=== PATIENT | female | born 1990 | race Caucasian/White ===

== ENCOUNTER 2020-10-12 09:41 | Outpatient (CLI) | payer OTHER, SELFPAY ==
[2020-10-12 11:41] LABS: Free T4 Free Thyroxine 0.81 ng/mL (0.78-2.19)
[2020-10-16 07:46] LABS: Prolactin 11.3 ng/mL (***)
== END 2020-10-12 09:42 | disposition home or self-care (01) ==
PROVIDERS: PCP Internal Medicine; Visit Provider Obstetrics & Gynecology
DX: N92.6 Irregular menstruation, unspecified (principal)
CPT/HCPCS: 36415; 84146; 84439; 84443

== ENCOUNTER 2021-03-13 14:05 | Observation (INO) | payer OTHER, SELFPAY ==
--- NOTE | 2021-03-13 14:05 | OBADM ---
This patient, Amy Soliz, admitted to the OB room OB Post 113 for observation. Patient/family oriented to hospital policies and general routines including ID bracelet, bed and alarms, visiting hours, pain management, procedures, bathroom and other care routines, personal items, smoking policy, room service/diet, and visiting hours. Patient/Family are encouraged to report perceived risks to care and to ask questions if they do not understand what they are told or what they should do.
[2021-03-13 14:25] VITALS: BMI 28.8
[2021-03-13 14:44] VITALS: BP 110/64; PULSE 78
[2021-03-13] MEDS: DEXTROSE 5%/LACTATED RINGERS 1,000 ML 999 ML IV CONT (14:54)
[2021-03-13] MEDS: PROMETHAZINE HCL 25 MG/ML AMPUL 12.5 MG IV PUSH (14:54)
[2021-03-13 15:14] LABS: Basophils Absolute Auto 0.1 K/mm3 (0.0-0.1); Basophils Percent Auto 0.4 % (0.2-1.2); Eosinophils Absolute Auto 0.2 K/mm3 (0-0.3); Eosinophils Percent Auto 1.4 % (0-4.4); Hematocrit 37.1 % (37.0-47.0); Immature Granulocyte Absolute 0.04 K/mm3 (0.00-0.031); Immature Granulocyte Percent A 0.3 % (0-0.5); Lymphocytes Percent Auto 22.8 % (18.3-44.2); Mean Corpuscular Hemoglobin 29.1 pg (26-34); Mean Corpuscular Volume 83.2 fl (80-100); Mean Platelet Volume 10.3 fl (7.4-10.4); Monocytes Absolute Auto 0.7 K/mm3 (0.1-0.6); Monocytes Percent Auto 5.8 % (2.6-8.5); Neutrophils Absolute Auto 8.2 K/mm3 (1.3-6.7); Neutrophils Percent Auto 69.3 % (45.5-73.1); Platelet Count Result 368 k/mm3 (150-375); Red Blood Count 4.46 M/mm3 (4.2-5.4); Red Cell Distribution Width 13.2 % (11.5-14.5); White Blood Count 11.9 K/mm3 (4.5-10.0)
[2021-03-13 15:17] LABS: Add Urine Microscopic? NO; Appearance Urine Clear (Clear); Bilirubin Urine Negative (Negative); Blood Urine Negative (Negative); Color Urine Yellow (Yellow); Glucose Urine UA Negative (Negative); Ketones Urine Negative (Negative); Leukocyte Esterase Ur Negative LEU/UL (NEGATIVE); Nitrate Urine Negative (Negative); Protein Urine Negative (Negative); Specific Grav Ur 1.017 (1.001-1.035); Urobilinogen Urine Negative mg/dL (<2.0)
[2021-03-13 15:38] LABS: Alanine Aminotransferase 14 U/L (4-35); Albumin Level 4.6 g/dL (3.5-5.1); Alkaline Phosphatase 51 U/L (38-126); Anion Gap 12 mmol/L (8-16); Aspartate Amino Transferase 22 U/L (14-36); Bilirubin,Total 0.5 mg/dL (0.2-1.3); Blood Urea Nitrogen 9 mg/dL (7-17); Calcium 9.6 mg/dL (8.4-10.2); Carbon Dioxide 22 mmol/L (22-30); Chloride 103 mmol/L (98-107); Estimated Glomerular Filt Rate > 60; Glucose 84 mg/dL (65-110); Potassium 3.7 mmol/L (3.4-5.0); Sodium 137 mmol/L (137-145)
[2021-03-13 16:08] LABS: Thyroid Stimulating Hormone 0.458 uIU/mL (0.465-4.680)
[2021-03-13 16:15] VITALS: TEMP 36.6
[2021-03-13 16:47] LABS: Free T4 Free Thyroxine 1.16 ng/mL (0.78-2.19)
--- NOTE | 2021-03-13 17:03 | PC.NURSE ---
1656- left message for Dr. Ayala. 1702- called Dr. Rivera. Informed of lab results and pt status. Pt states that she is feeling better and was able to eat crackers without nausea. Pt states that she feels well enough to go home. Phenergan prescription has been called to pharmacy. October D/C home.
--- NOTE | 2021-04-04 10:00 | P.PNOB_ITS ---
OB - Triage/Final Diagnosis Visit Information Comments/Additional reasons for admission: I have assessed the risk for this patient, Amy Soliz, and determined that she would benefit from observation care. Evaluation Laboratory results: Laboratory Tests 03/13/21 03/13/21 03/13/21 14:35 14:35 14:35 WBC 11.9 H RBC 4.46 Hgb 13.0 Hct 37.1 MCV 83.2 MCH 29.1 MCHC 35.0 RDW 13.2 Plt Count 368 MPV 10.3 Immature Gran % (Auto) 0.3 Neut % (Auto) 69.3 Lymph % (Auto) 22.8 [place] % (Auto) 5.8 Eos % (Auto) 1.4 Baso % (Auto) 0.4 Lymph # (Auto) 2.70 [place] # (Auto) 0.7 H Eos # (Auto) 0.2 Baso # (Auto) 0.1 Abs Immat Gran (auto) 0.04 H Absolute Neuts (auto) 8.2 H Absolute Nucleated RBC 0.0 Nucleated RBC % 0.0 Sodium 137 Potassium 3.7 Chloride 103 Carbon Dioxide 22 Anion Gap 12 BUN 9 Creatinine 0.40 L Estim Creat Clear Calc Not Reportable Estimated GFR > 60 Glucose 84 Calcium 9.6 Total Bilirubin 0.5 AST 22 ALT 14 Alkaline Phosphatase 51 Total Protein 7.0 Albumin 4.6 TSH Free T4 Urine Color Yellow Urine Appearance Clear Urine pH 6.0 Ur Specific [place] 1.017 Urine Protein Negative Urine Glucose (UA) Negative Urine Ketones Negative Ur Blood (Man) Negative Urine Nitrate Negative Urine Bilirubin Negative Urine Urobilinogen Negative Ur Leukocyte Esterase Negative 03/13/21 03/13/21 14:35 14:35 WBC RBC Hgb Hct MCV MCH MCHC RDW Plt Count MPV Immature Gran % (Auto) Neut % (Auto) Lymph % (Auto) [place] % (Auto) Eos % (Auto) Baso % (Auto) Lymph # (Auto) [place] # (Auto) Eos # (Auto) Baso # (Auto) Abs Immat Gran (auto) Absolute Neuts (auto) Absolute Nucleated RBC Nucleated RBC % Sodium Potassium Chloride Carbon Dioxide Anion Gap BUN Creatinine Estim Creat Clear Calc Estimated GFR Glucose Calcium Total Bilirubin AST ALT Alkaline Phosphatase Total Protein Albumin TSH 0.458 L Free T4 1.16 Urine Color Urine Appearance Urine pH Ur Specific [place] Urine Protein Urine Glucose (UA) Urine Ketones Ur Blood (Man) Urine Nitrate Urine Bilirubin Urine Urobilinogen Ur Leukocyte Esterase Final Diagnosis (1) Nausea and vomiting during : Code(s): O21.9 - Vomiting of , unspecified Status: Acute
== END 2021-03-13 17:18 | disposition home or self-care (01) ==
PROVIDERS: Admitting Provider Obstetrics & Gynecology; PCP Internal Medicine; Visit Provider Student in an Organized Health Care Education/Training Program
DX: O21.0 Mild hyperemesis gravidarum (principal); Z3A.12 12 weeks gestation of pregnancy
CPT/HCPCS: 36415; 80053; 81003; 84439; 84443; 85025; 87086; 96361; 96374; G0378; G0379; J2550; J7121

== ENCOUNTER 2021-07-16 15:24 | Outpatient (CLI) | payer OTHER, SELFPAY ==
--- NOTE | ~2021-07-16 | US_ITS ---
US soft tissue chest 07/16/2021 16:03 Indication: Palpable painful right breast lump lower inner right breast Procedure: High-resolution ultrasound of the area of palpable concern in the right breast Comparison: No prior studies for comparison. Findings: At 9:00, 4 cm from the nipple there is a hypoechoic mass measuring 5 x 5 x 5 mm with slight ly antiparallel configuration, no posterior acoustic enhancement and no internal vascularity. The mar gins are circumscribed. Impression: 1: Probable benign right breast mass measuring 5 mm at 4:00, 9 cm from the nipple. Short-term follow- up is recommended. BI-RADS CATEGORY 3-PROBABLY BENIGN FINDING RECOMMENDATION: 3 month follow-up right breast ultrasound with possible additional mammogram recommen ded if the mass is persistent. Reviewed, dictated and finalized at location A. HOST Impression: 1: Probable benign right breast mass measuring 5 mm at 4:00, 9 cm from the nipp le. Short-term follow-up is recommended. BI-RADS CATEGORY 3-PROBABLY BENIGN FINDING RECOMMENDATION: 3 month follow-up right breast ultrasound with possible additio nal mammogram recommended if the mass is persistent.
== END 2021-07-16 15:25 | disposition home or self-care (01) ==
LOC: ANHIMG 15:35
PROVIDERS: PCP Internal Medicine; Visit Provider Obstetrics & Gynecology
DX: R92.8 Other abnormal and inconclusive findings on diagnostic imaging of breast (principal)
CPT/HCPCS: 76604

== ENCOUNTER 2021-08-28 15:41 | Outpatient (RCR) | payer OTHER, SELFPAY ==
[2021-08-28 16:31] VITALS: BP 127/74; PULSE 102
== END 2021-09-22 13:07 | disposition home or self-care (01) ==
LOC: ANHOBOP 15:41
PROVIDERS: PCP Internal Medicine; Visit Provider Obstetrics & Gynecology
DX: O36.8130 Decreased fetal movements, third trimester, not applicable or unspecified (principal); Z3A.36 36 weeks gestation of pregnancy
CPT/HCPCS: 59025

== ENCOUNTER 2021-09-17 04:56 | Inpatient (IN) | payer OTHER, SELFPAY ==
--- NOTE | 2021-09-16 22:09 | PM.IMHP ---
H&P: HPI History of Present Illness Date/Time: 09/16/21 22:09 She is admitted for repeat ceserean section. She is a at 39 weeks by LMP 12/18/20 with an EDC 09/24/2021 consistent with a 10 week ultrasound. She has had 2 prior ceserean sections. PNC significant for nausea and vomiting of . Labs reviewed. GBS neg. She has plans for to get a vasectomy. Chief Complaint: Elective repeat ceserean. Review of Systems Review of Systems: All systems reviewed & are unremarkable except as noted in HPI and below Constitutional: Constitutional: Reports no additional constitutional complaints and Denies headache(s) Eyes: Eyes: Denies spots in vision ENT: Reports system reviewed and no additional complaints, except as documented and Denies headache(s) Cardiovascular: Cardiovascular: Denies chest pain and Denies dyspnea Respiratory: Respiratory: Denies dyspnea Gastrointestinal: Gastrointestinal: Reports no additional gastrointestinal complaints Genitourinary: Genitourinary: Reports amenorrhea Musculoskeletal: Musculoskeletal: Reports no additional musculoskeletal complaints Integumentary/Breasts: Skin/Breast: Denies breast mass and Denies rash Neurologic: Denies headache(s) Psychiatric: Psychiatric: Reports no additional psychiatric complaints PMFSH Past Medical History Medical History ASCUS with positive high risk HPV Surgical History Surgical History History of tonsillectomy Previous section [place] teeth removed Family History Family History Grandparent Carcinoma of colon Family history of malignant neoplasm of breast Father Family history of type 2 diabetes mellitus Social History Social History Smoking status: Never smoker Second hand tobacco smoke exposure: No Alcohol intake: current Alcohol use details: Social Substance use: never Spiritual care concerns: No Meds Home Medications and Allergies Home Medications Medication Instructions Recorded Confirmed Type prenat.vits,erin,lje-rpun-irxyc 1 tablet PO DAILY 02/20/21 09/17/21 History Allergies Allergy/AdvReac Type Severity Reaction Status Date / Time Penicillins Allergy Unknown unknown Verified 09/13/21 14:52 Exam Const: General: no acute distress Eyes: General: appearance normal, both eyes and all related structures Resp: Effort & Inspection: normal respiratory effort Cardio: Rate: regular rate GI: Other: Gravid no fundal tenderness no right upper quadrant pain Skin: General skin exam: no rashes or lesions noted Neuro: Cognition (Neuro): normal cognition Extrem: General: normal to inspection Psych: Mental Status: mental status grossly normal Assessment and Plan Assessment and plan (1) Delivery by elective section: Code(s): O82 - Encounter for delivery without indication Status: Acute Assessment and Plan: Admit. Will proceed with repeat ceserean section.
[2021-09-17] VITALS (57 sets, daily range): BP systolic 97–141; BP diastolic 56–91; PULSE 60–98; RESP 12–19; TEMP 36.2–36.9; O2SAT 94–100; BMI 33.7
[2021-09-17 05:36] LABS: Basophils Absolute Auto 0.1 K/mm3 (0.0-0.1); Basophils Percent Auto 0.5 % (0.2-1.2); Eosinophils Absolute Auto 0.2 K/mm3 (0-0.3); Eosinophils Percent Auto 1.5 % (0-4.4); Hematocrit 33.1 % (37.0-47.0); Hemoglobin 10.6 g/dL (12.0-15.0); Immature Granulocyte Absolute 0.09 K/mm3 (0.00-0.031); Immature Granulocyte Percent A 0.8 % (0-0.5); Lymphocytes Absolute Auto 3.04 K/mm3 (0.9-3.2); Lymphocytes Percent Auto 26.8 % (18.3-44.2); Mean Corpuscular Hemoglobin 24.5 pg (26-34); Mean Corpuscular Volume 76.6 fl (80-100); Mean Platelet Volume 10.8 fl (7.4-10.4); Monocytes Absolute Auto 0.7 K/mm3 (0.1-0.6); Monocytes Percent Auto 6.2 % (2.6-8.5); Neutrophils Absolute Auto 7.3 K/mm3 (1.3-6.7); Neutrophils Percent Auto 64.2 % (45.5-73.1); Platelet Count Result 382 k/mm3 (150-375); Red Blood Count 4.32 M/mm3 (4.2-5.4); Red Cell Distribution Width 14.2 % (11.5-14.5); White Blood Count 11.4 K/mm3 (4.5-10.0)
--- NOTE | 2021-09-17 06:14 | LDADM ---
This patient, Amy Soliz, was admitted to Labor/Delivery/Recovery 120 on 09/17/21 at 04:56. Plans for labor, pain management and were discussed with patient. Patient/family oriented to hospital policies and general routines including ID bracelet, bed and alarms, visiting hours, pain management, procedures, bathroom and other care routines, personal items, smoking policy, room service/diet and guest tray routines, infant security routines, and visiting hours. Patient/Family are encouraged to report perceived risks to care and to ask questions if they do not understand what they are told or what they should do. See OBIX for further documentation.
[2021-09-17] MEDS: LACTATED RINGERS 1,000 ML 125 ML IV CONT (06:19)
--- NOTE | 2021-09-17 06:52 | WPDANESEPPF ---
Anes - Initial Pre Proc Eval Procedure: Operation Date: 09/17/21 07:30 Proposed Procedures p Repeat Section - Santos Ayala MD Date/Time: 09/17/21 06:52 Surgeon: Santos Ayala MD Pre Op Diagnosis: repeat Patient Data Age: 31 Gender: F Height: 1.63 m Weight: 89 kg Last Vital Signs Pulse 97 09/17/21 05:13 BP 141/91 H 09/17/21 05:13 Allergies Allergy/AdvReac Type Severity Reaction Status Date / Time Penicillins Allergy Unknown unknown Verified 09/13/21 14:52 Home Medications Medication Instructions Recorded Confirmed Type prenat.vits,erin,xsg-sxww-jswju 1 tablet PO DAILY 02/20/21 09/17/21 History Laboratory Tests 09/17/21 09/17/21 09/17/21 05:29 05:29 05:29 WBC 11.4 K/mm3 H K/mm3 (4.5-10.0) RBC 4.32 M/mm3 M/mm3 (4.2-5.4) Hgb 10.6 g/dL L g/dL (12.0-15.0) Hct 33.1 % L % (37.0-47.0) MCV 76.6 fl L fl (80-100) MCH 24.5 pg L pg (26-34) MCHC 32.0 g/dl g/dl (32-36) RDW 14.2 % % (11.5-14.5) Plt Count 382 k/mm3 H k/mm3 (150-375) MPV 10.8 fl H fl (7.4-10.4) Immature Gran % (Auto) 0.8 % H % (0-0.5) Neut % (Auto) 64.2 % % (45.5-73.1) Lymph % (Auto) 26.8 % % (18.3-44.2) [place] % (Auto) 6.2 % % (2.6-8.5) Eos % (Auto) 1.5 % % (0-4.4) Baso % (Auto) 0.5 % % (0.2-1.2) Lymph # (Auto) 3.04 K/mm3 K/mm3 (0.9-3.2) [place] # (Auto) 0.7 K/mm3 H K/mm3 (0.1-0.6) Eos # (Auto) 0.2 K/mm3 K/mm3 (0-0.3) Baso # (Auto) 0.1 K/mm3 K/mm3 (0.0-0.1) Abs Immat Gran (auto) 0.09 K/mm3 H K/mm3 (0.00-0.031) Absolute Neuts (auto) 7.3 K/mm3 H K/mm3 (1.3-6.7) Absolute Nucleated RBC 0.0 K/mm3 K/mm3 (0.0-0.012) Nucleated RBC % 0.0 % % (0.0-0.2) RPR Pending Blood Type A Positive Antibody Screen Negative Patient hx anesthesia problems: none Family hx anesthesia problems: none Results Review: All pre-operative results and documents have been reviewed as part of the pre-operative evaluation. [facility] Past Medical History Medical History ASCUS with positive high risk HPV Surgical History Surgical History History of tonsillectomy Previous section [place] teeth removed Family History Family History Grandparent Carcinoma of colon Family history of malignant neoplasm of breast Father Family history of type 2 diabetes mellitus Social History Social History Smoking status: Never smoker Second hand tobacco smoke exposure: No Alcohol intake: current Alcohol use details: Social Substance use: never Spiritual care concerns: No Anes - Eval Final PreProcedure Day of Procedure 09/17/21 06:52 Patient weight: obese Heart: regular rate and rhythm Lungs: clear to auscultation Airway: Mallampati scale class 1 Neurological: alert and oriented Last oral intake: >/= 8 hours ASA classification: II Emergent: no Anesthetic plan: proceed Anesthesia type and monitoring: regional spinal and standard monitoring Results Review: All pre-operative results and documents have been reviewed as part of the pre-operative evaluation. Informed Consent: The patient's anesthetic plan and its attendant risks and benefits were discussed with the patient/family/POA. Questions were solicited and answers provided to the satisfaction of the patient/family/POA.
--- NOTE | 2021-09-17 07:03 | WPDHPUPDATE1 ---
History and Physical Update Update Date/Time: 09/17/21 07:03 History and Physical has been reviewed, including an updated exam of the patient. There are NO changes in the patient's condition. Risks, benefits, and alternatives have been discussed and questions answered. Patient agrees to proceed with procedure.
[2021-09-17] MEDS: KETOROLAC 30 MG/ML VIAL (*BKC) 15 MG IV PUSH (08:06)
--- NOTE | 2021-09-17 09:00 | W.PM.PROC2 ---
Procedure Note - Detailed Date of Procedure 09/17/21 Pre-op Diagnosis repeat Post-op Diagnosis Same Procedure Performed Repeat low transverse ceserean section. Surgeon Santos Ayala MD Telephone Advice Nurse Helder Gunter Anesthesia Spinal Indications Patient with history of 2 prior ceserean sections. Desires elective repeat ceserean section. Findings Female , 7 lbs, apgars, 9,9. Normal ovaries bilateral. Uterus normal appearing. Description of Procedure After informed consent, risks and benefits of the procedure was discussed with the patient. The patient was taken to the operating room where she was placed in the dorsal lithotomy position with leftward tilt. Spinal anesthesia was administered and she was then prepped and draped in the usual sterile fashion. A Pfannenstiel skin incision was made along her prior scar with a scalpel and carried through to the underlying layer of fascia. The fascia and scar tissue was incised in the midline, extending bilaterally with rodriguez scissors. The fascia and scar tissue was dissected off the rectus muscles bluntly and sharply, superiorly and inferiorly. The rectus muscles were in the midline, and peritoneum was identified and entered bluntly. The pelvic organs were visualized. The bladder blade was then inserted. The vesicouterine peritoneum was identified and entered sharply with Metzenbaum scissors and extended bilaterally and then the bladder flap was created digitally. The low transverse uterine incision was then made with the scalpel and extended with bilateral index fingers in a crescent-shaped fashion. The head was delivered and the rest of the infant was delivered. The nose and mouth were suctioned. The cord was clamped twice and cut. The infant was then handed off to the awaiting pediatric staff. The placenta was then delivered manually. The uterine cavity was sponge curretted. The uterus was then exteriorized. The uterine incision was then closed with 0 vicryl in a running locked fashion. A second layer of 0 vicryl was used in an imbricating fashion. Hemostasis was noted. The posterior cul de sac was irrigated. The uterus was then returned to the abdomen. Bilateral gutters were irrigated. The uterine incision was noted to be hemostatic. Interceed placed on uterine incision and vertically on front of uterus. The muscle bellies were inspected and noted to be hemostatic. The subfascial layer was noted to be hemostatic, and the fascia was closed with 0 Vicryl in a running fashion. The subcutaneous layer was then closed with 3-0 Vicryl in a subcutaneous fashion. The skin was closed in a subcuticular fashion with 4.0 Vicryl on a Keif needle. Dermabond was applied at incision. All instruments, needle, and lap counts were correct x3. The patient was taken to the recovery room in stable condition. Estimated Blood Loss -345.0 Urine Output -200.0 Drains No Packing No Pathology None sent Complications No immediate complications Condition Stable Disposition Floor
[2021-09-17] MEDS: fentaNYL CITRATE INJ (*CRX) 100 MCG/2 ML VIAL 25 MCG IV PUSH (10:00)
[2021-09-17] MEDS: OXYTOCIN 30 UNITS/NS 500 ML 30 UNITS/500 ML BAG 125 UNITS IV CONT (10:22)
--- NOTE | 2021-09-17 11:10 | OBPPTRN ---
Patient transferred to post room #290 via stretcher. Support person present. Oriented to unit, room, information board, rooming in, admission packet and security measures. Patient verbalizes understanding.
[2021-09-17] MEDS: IBUPROFEN 600 MG TABLET PO ×2 (11:37→20:38)
[2021-09-17] MEDS: DEXTROSE 5%/0.45% SOD CHL 1,000 ML 125 ML IV CONT (13:44)
[2021-09-17] MEDS: DOCUSATE SODIUM 100 MG CAPSULE PO (19:35)
[2021-09-17] MEDS: KCL 20 MEQ/D5/0.45% SOD CHL 1,000 ML 125 ML IV CONT (23:03)
[2021-09-18] VITALS: BP 99/59; PULSE 65; RESP 16; TEMP 36.8; O2SAT 98
[2021-09-18] MEDS: IBUPROFEN 600 MG TABLET PO ×3 (02:39→15:24)
[2021-09-18 04:55] VITALS: BP 99/57; PULSE 72; RESP 16; TEMP 36.9; O2SAT 98
[2021-09-18] MEDS: HYDROcodone/acetaminophen (*CRX) 10-325 MG TABLET 1 TAB PO ×3 (05:34→15:24)
[2021-09-18 05:40] LABS: Basophils Absolute Auto 0.1 K/mm3 (0.0-0.1); Basophils Percent Auto 0.3 % (0.2-1.2); Eosinophils Absolute Auto 0.1 K/mm3 (0-0.3); Eosinophils Percent Auto 0.4 % (0-4.4); Hematocrit 27.9 % (37.0-47.0); Hemoglobin 9.1 g/dL (12.0-15.0); Immature Granulocyte Absolute 0.12 K/mm3 (0.00-0.031); Immature Granulocyte Percent A 0.8 % (0-0.5); Lymphocytes Absolute Auto 3.24 K/mm3 (0.9-3.2); Lymphocytes Percent Auto 22.6 % (18.3-44.2); Mean Corpuscular HGB Conc 32.6 g/dl (32-36); Mean Corpuscular Hemoglobin 24.5 pg (26-34); Mean Corpuscular Volume 75.2 fl (80-100); Mean Platelet Volume 11.2 fl (7.4-10.4); Monocytes Absolute Auto 1.1 K/mm3 (0.1-0.6); Monocytes Percent Auto 7.8 % (2.6-8.5); Neutrophils Absolute Auto 9.7 K/mm3 (1.3-6.7); Neutrophils Percent Auto 68.1 % (45.5-73.1); Platelet Count Result 371 k/mm3 (150-375); Red Blood Count 3.71 M/mm3 (4.2-5.4); Red Cell Distribution Width 14.1 % (11.5-14.5); White Blood Count 14.3 K/mm3 (4.5-10.0)
[2021-09-18 08:10] VITALS: BP 115/56; PULSE 68; RESP 18; TEMP 36.6; O2SAT 99
[2021-09-18] MEDS: POLYSACCHARIDE IRON COMPLEX 150 MG CAPSULE PO ×2 (08:30→15:23)
[2021-09-18] MEDS: MULTIVIT/MIN/PREN/FOL AC/IRON TABLET 1 TAB PO (08:30)
[2021-09-18] MEDS: HYDROcodone/acetaminophen (*CRX) 5-325 MG TABLET 1 TAB PO (08:30)
[2021-09-18] MEDS: DOCUSATE SODIUM 100 MG CAPSULE PO ×2 (08:30→15:24)
--- NOTE | 2021-09-18 09:31 | WPDANLDPN2 ---
Anes-Prog Note L&D Date/Time: 09/18/21 09:31 Comfortable throughout: section Neuraxial method: spinal Epidural/Spinal procedure site: clean & non-tender Neuro status: Neuro function grossly intact. Cardiovascular status: normal Respiratory status: normal Airway patency: baseline Mental status: baseline Post-Op hydration status: normal Vital Signs: Last Vital Signs Temp 36.9 C 09/18/21 04:55 Pulse 72 09/18/21 04:55 Resp 16 09/18/21 04:55 BP 99/57 L 09/18/21 04:55 Pulse Ox 98 09/18/21 04:55 Pain score (VAS): 5/10 I/O: Intake & Output 09/17/21 09/18/21 09/18/21 23:59 07:59 15:59 Intake Total 1900 300 Output Total 1050 1475 Balance 850 -1175 Post-procedural complaints: none Patient feedback: Patient satisfied with anesthetic care.
--- NOTE | 2021-09-18 09:32 | WPDANLDNPN2 ---
Anes-Prog Note L&D-Neuraxial Date/Time: 09/18/21 09:32 Neuraxial medications: intrathecal PF morphine Opiod-related complaints: none Patient feedback: Patient satisfied with post-operative pain management.
[2021-09-18 11:52] LABS: Rapid Plasma Reagin Non-Reactive (NonReactive)
[2021-09-18] MEDS: ACETAMINOPHEN 325 MG TABLET 650 MG PO (19:29)
[2021-09-18 19:30] VITALS: BP 111/72; PULSE 70; RESP 16; TEMP 36.6
--- NOTE | 2021-09-18 20:39 | PM.OBPNVD ---
OB - PN: Subj Subjective Date/time seen: 09/18/21 20:39 She states feeling well. No leg pain. No chest pain. Mild lochia. Baby doing well. She has sat up in chair. She has adequate pain control. Positive flatus. OB - PN: Obj Data Labs CBC & Chem 7: 09/18/21 05:01 Labs: Laboratory Results - last 24 hr 09/17/21 09/18/21 05:29 05:01 WBC 14.3 H RBC 3.71 L Hgb 9.1 L Hct 27.9 L MCV 75.2 L MCH 24.5 L MCHC 32.6 RDW 14.1 Plt Count 371 MPV 11.2 H Immature Gran % (Auto) 0.8 H Neut % (Auto) 68.1 Lymph % (Auto) 22.6 [place] % (Auto) 7.8 Eos % (Auto) 0.4 Baso % (Auto) 0.3 Lymph # (Auto) 3.24 H [place] # (Auto) 1.1 H Eos # (Auto) 0.1 Baso # (Auto) 0.1 Abs Immat Gran (auto) 0.12 H Absolute Neuts (auto) 9.7 H Absolute Nucleated RBC 0.0 Nucleated RBC % 0.0 RPR Non-reactive OB - PN A/P Assessment and Plan (1) Delivery by elective section: Code(s): O82 - Encounter for delivery without indication Status: Acute Assessment and Plan: POD1 s/p rpeat . She is doing well. Routine post care. Time Spent With Patient Time: Total time spent is greater than 50% in coordination of care (as documented) at patient's floor/unit and/or counseling patient: Exam Const: General: comfortable and no acute distress Resp: Effort & Inspection: normal respiratory effort GI: Other: incision clean dry intact Extrem: Other: nontender Psych: Mental Status: mental status grossly normal Affect: normal affect
[2021-09-19] MEDS: IBUPROFEN 600 MG TABLET PO ×4 (01:10→21:25)
[2021-09-19] MEDS: ACETAMINOPHEN 325 MG TABLET 650 MG PO ×3 (04:11→16:40)
[2021-09-19 07:45] VITALS: BP 115/69; PULSE 78; RESP 20; TEMP 36.3; O2SAT 99
[2021-09-19] MEDS: DOCUSATE SODIUM 100 MG CAPSULE PO ×2 (07:45→16:39)
[2021-09-19] MEDS: POLYSACCHARIDE IRON COMPLEX 150 MG CAPSULE PO ×2 (07:45→16:39)
--- NOTE | 2021-09-19 08:50 | PC.NURSE ---
On 09/19/21, the student, Sanjuanita Sarkar, provided care and completed [facility] documentation on this patient. I have reviewed the student's documentation and agree with the findings.
[2021-09-19 18:40] VITALS: BP 107/66; PULSE 76; RESP 16; TEMP 36.6
--- NOTE | 2021-09-19 20:40 | PM.OBPNVD ---
OB - PN: Subj Subjective Date/time seen: 09/19/21 0830 She reports adequate pain control. No leg pain. Lochia decreasing. Adequate pain control. She has flatus and tolerating regular diet. OB - PN: Obj Data Labs CBC & Chem 7: 09/18/21 05:01 OB - PN A/P Assessment and Plan (1) Delivery by elective section: Code(s): O82 - Encounter for delivery without indication Status: Acute Assessment and Plan: POD 2 s/p repeat . Doing well. Routine post op care. Time Spent With Patient Time: Total time spent is greater than 50% in coordination of care (as documented) at patient's floor/unit and/or counseling patient: Exam Const: General: comfortable and no acute distress Resp: Effort & Inspection: normal respiratory effort GI: Other: incision clean dry intact Skin: General skin exam: normal color Extrem: General: normal to inspection and no calf tenderness (trace edema bilat) Psych: Mental Status: mental status grossly normal Affect: normal affect
[2021-09-20] MEDS: ACETAMINOPHEN 325 MG TABLET 650 MG PO ×2 (00:05→07:13)
[2021-09-20] MEDS: IBUPROFEN 600 MG TABLET PO ×2 (02:45→11:13)
[2021-09-20] MEDS: POLYSACCHARIDE IRON COMPLEX 150 MG CAPSULE PO (07:13)
[2021-09-20] MEDS: DOCUSATE SODIUM 100 MG CAPSULE PO (07:13)
[2021-09-20] MEDS: MULTIVIT/MIN/PREN/FOL AC/IRON TABLET 1 TAB PO (07:17)
[2021-09-20 08:40] VITALS: BP 125/66; PULSE 72; RESP 18; TEMP 36.3; O2SAT 100
[2021-09-21 11:18] VITALS: BP 131/82; PULSE 79; RESP 20; TEMP 36.9; O2SAT 100
--- NOTE | 2021-10-04 00:29 | PM.OBDSVD ---
DS: Admitting Diagnosis Discharge Date 09/20/21 Admitting Diagnosis Elective repeat ceserean section. DS: Discharge Diagnosis Discharge Diagnosis (1) Delivery by elective section: Code(s): O82 - Encounter for delivery without indication Status: Acute OB - DS: Summary Hospital Course Hospital Course: Patient admitted on 09/17 2021 for planned elective repeat cesearean section. She had an uncompicated ceserean section. Postoperatively she did well. On post op day 1 she had adequate pain control with oral medication and was ambulating. On post op day 2 she had flatus. She was tolerating regular diet. On Post op day 3 she was doing well. She was discharged home. OB Procedures : Ultrasound OB Procedures Intrapartum: OB Procedures: : None Peripartum Data Infant Delivery Method: Section Procedures: Procedures Operation Date: 09/17/21 07:30 Actual Procedure Side Surgeon p Section Bilateral Santos Ayala MD Time Spent with Patient Time attestation: Total time spent providing and/or coordinating discharge services: Exam Const: General: cooperative Orientation/consciousness: oriented to person, oriented to place and oriented to time HENMT: General nose exam: Normal external nose present Eyes: General: appearance normal, both eyes and all related structures Resp: Effort & Inspection: normal respiratory effort GI: Inspection: normal to inspection Other: incision clean dry intact Skin: General skin exam: normal color Neuro: General: oriented to person, oriented to place and oriented to time Extrem: General: normal to inspection and no calf tenderness Psych: Appearance: grossly normal Mental Status: mental status grossly normal Discharge Plan Discharge Attending physician on discharge: Santos Ayala Consulting providers: Josh Valdez Discharging Clinician: Santos Ayala Anticipated Discharge Date/Time: 09/20/21 11:05 Patient Disposition: Home, Self-Care Activity: may shower, no straining, may drive after 2 weeks and pelvic rest Diet: regular Discharge Instructions: Education: Mom and Baby Guide Given to: Mother Follow-Up: Call your delivering provider's office for an appointment to be seen in: 6 Weeks [facility]. Appointment Date/Time: September 21, 2021 at 11:00 am What to expect at your follow-up visit: Physical Assessment Call [phone] if you are unable to keep your appointment time. BREAST CARE: * Wear a snug supportive bra. * For engorgement discomfort: Bottle Feeding: * May apply ice packs ABDOMINAL INCISION: (if applicable) * Allow incision to air dry * Do NOT use lotions for powders on your incision * When showering, allow soap and water to run over the incision, but do not wash incision EPISIOTOMY/PERINEAL CARE: * Until bleeding stops, use your alexander bottle after urinating * Change your pad frequently throughout the day * No tub baths until seen by your physician - You may shower ACTIVITY: * Rest as much as possible. * Do not exercise or lift anything heavier than your baby (such as laundry or other children.) * Avoid stairs or driving as much as possible. * Do not put anything into the vagina. No douching, tampons, or sexual activity until seen by physician. NOTIFY PHYSICIAN IF YOU HAVE ANY QUESTIONS OR IF ANY OF THE FOLLOWING SYMPTOMS OCCUR: * If your incision becomes red, swollen, or more painful than what you have experienced in the hospital. * If your vaginal bleeding becomes foul smelling. * If your vaginal bleeding becomes more heavy than a period or if your bleeding changes from pink to bright red. However, you may pass an occasional walnut-sized clot once or twice for the first week . * If you experience a sharp, shooting pain in you calves. *
== END 2021-09-20 14:50 | disposition home or self-care (01) | DRG 788 ==
LOC: ANHLDR 05:05 → ANHOB2 11:16
PROVIDERS: Admitting Provider Obstetrics & Gynecology; PCP Internal Medicine; Visit Provider Obstetrics & Gynecology
PROC: 10D00Z1 Extraction of Products of Conception, Low, Open Approach (ICD-10-PCS; CPT 59514; principal; 2021-09-17 07:30)
DX: O34.211 Maternal care for low transverse scar from previous cesarean delivery (principal); Z37.0 Single live birth; Z3A.39 39 weeks gestation of pregnancy
CPT/HCPCS: 36415; 85025; 86592; 86850; 86900; 86901; A9270; J0131; J1100; J1885; J2274; J2370; J2405; J2590; J3010; J3480; J7120

== ENCOUNTER 2021-12-05 15:53 | Outpatient (CLI) | payer OTHER, SELFPAY ==
[2021-12-05 16:17] LABS: Hematocrit 38.1 % (37.0-47.0); Hemoglobin 12.6 g/dL (12.0-15.0); Mean Corpuscular HGB Conc 33.1 g/dl (32-36); Mean Corpuscular Hemoglobin 25.8 pg (26-34); Mean Corpuscular Volume 78.1 fl (80-100); Platelet Count Result 442 k/mm3 (150-375); Red Blood Count 4.88 M/mm3 (4.2-5.4); Red Cell Distribution Width 20.5 % (11.5-14.5); White Blood Count 7.4 K/mm3 (4.5-10.0)
== END 2021-12-05 15:54 | disposition home or self-care (01) ==
PROVIDERS: PCP Internal Medicine; Visit Provider Obstetrics & Gynecology
DX: D64.9 Anemia, unspecified (principal)
CPT/HCPCS: 36415; 85027

== ENCOUNTER 2021-12-24 12:16 | Outpatient (CLI) | payer OTHER, SELFPAY ==
--- NOTE | ~2021-12-24 | US_ITS ---
EXAMINATION: US breast RT complete HISTORY: Six-month follow-up for probably benign right breast mass TECHNIQUE: Limited right breast ultrasound was performed. COMPARISON: 07/16/2021 FINDINGS: There is a 2 mm round, hypoechoic mass at the 4:00 location 8 cm from the nipple in the rig ht breast which has decreased in size since the comparison examination and demonstrates a thin connec tion to the skin surface, most consistent with a sebaceous cyst. IMPRESSION: Findings consistent with right breast sebaceous cyst. BI-RADS Category 2: Benign finding(s). Reviewed, dictated and finalized at location A.
== END 2021-12-24 12:17 | disposition home or self-care (01) ==
PROVIDERS: PCP Internal Medicine; Visit Provider Obstetrics & Gynecology
DX: N63.0 Unspecified lump in unspecified breast (principal)
CPT/HCPCS: 76641

== ENCOUNTER 2022-06-18 14:35 | Outpatient (CLI) | payer OTHER, SELFPAY ==
[2022-06-18 20:52] LABS: T4 Thyroxine 7.28 ug/dL (5.53-11.0)
== END 2022-06-18 14:36 | disposition home or self-care (01) ==
LOC: ANHLAB 14:36
PROVIDERS: PCP Internal Medicine; Visit Provider Obstetrics & Gynecology
DX: E04.9 Nontoxic goiter, unspecified (principal)
CPT/HCPCS: 36415; 84436; 84443

== ENCOUNTER 2023-09-05 00:12 | Day surgery (SDC) | payer OTHER, SELFPAY ==
[2023-08-29 09:24] VITALS: BMI 29.2
--- NOTE | 2023-08-29 09:27 | PC.NURSE ---
Report to the Outpatient Waiting Room, entrance under the green pavilion located off [facility], at time 0800 on date 09/05/23. Planned Procedure Time: 1000. Time changes happen often and if your time is changed the preop area will call you the afternoon before. - You and your visitor will be asked to self-screen and do not enter if you have any COVID symptoms. - A mask is optional within the hospital at this time. Patients may have clear liquids (water, carbonated beverages, clear teas, apple juice) until 3 hours prior to surgery with a maximum of 20 ounces. - No food from midnight until time of surgery Take the following medications with a SIP of water the morning of surgery: NONE DO NOT STOP ANY OF YOUR OTHER PRESCRIPTION MEDICATIONS PRIOR TO SURGERY ?EXCEPT THE FOLLOWING Medications to discontinue per physician: N/A Date to take last dose: N/A Please no make-up, nail thai, hairspray, perfume, deodorant, or body powder the day of surgery. No jewelry (including any body piercings) or valuables the day of surgery, leave them at home. Please take a shower or bath the night before, or the morning of, surgery with an antibacterial soap. Wear comfortable, loose fitting clothing. - Jewelry must be removed prior to entering the operating room. Rings and piercings that are not removed may be cut off. - The hospital will not accept responsibility for valuables. - Please leave all valuables, including medications, at home the day of surgery. If you are going home after surgery, a licensed show horse driver must drive you home. - NO public transportation without another adult if you receive anesthesia. - We recommend that an adult stay with you for 24 hours following discharge. - We also recommend that you do not drive, make important decision, drink alcoholic beverages, or take any drugs that were not prescribed by your health care provider for at least 24 hours after your discharge time. Follow any additional instructions given to you from your surgeon. If you or anyone in your household have experienced Covid symptoms in the past week, please notify your surgeon or the nurse liaison at the phone number below for possible testing. Telephone instructions given to PT - MAGALI and asked if any additional questions and then verbalized understanding. Patient advised to call surgeon office or pre surgery nurse liaison [phone] if any additional questions.
[2023-09-05] VITALS (7 sets, daily range): BP systolic 114–129; BP diastolic 63–82; PULSE 55–77; RESP 16; TEMP 36.2; O2SAT 100
--- NOTE | 2023-09-05 07:24 | PM.IMHP ---
H&P: HPI History of Present Illness Date/Time: 09/05/23 07:24 Chief Complaint: Heavy periods Narrative: Patient with history of menorrhagia. She declines hormonal options. She has been informed of options and request endometrial ablation. She has had a normal endometrial biopsy. Review of Systems Review of Systems: All systems reviewed & are unremarkable except as noted in HPI and below Cardiovascular: Cardiovascular: Reports no additional cardiovascular complaints, Denies chest pain and Denies dyspnea Respiratory: Respiratory: Reports no additional respiratory complaints and Denies dyspnea Gastrointestinal: Gastrointestinal: Reports abdominal pain, Denies change in bowel habits, Denies diarrhea, Denies nausea and Denies vomiting Genitourinary: Genitourinary: Reports pelvic pain Musculoskeletal: Musculoskeletal: Reports back pain Integumentary/Breasts: Skin/Breast: Reports system reviewed and no additional complaints, except as docu Neurologic: Reports system reviewed and no additional complaints, except as documented PMFSH Past Medical History Medical History ASCUS with positive high risk HPV Surgical History Surgical History History of tonsillectomy Previous section [place] teeth removed Family History Family History Grandparent Carcinoma of colon Family history of malignant neoplasm of breast Father Family history of type 2 diabetes mellitus Social History Social History Smoking status: Never smoker Second hand tobacco smoke exposure: No Alcohol intake: current Drinks per week: 4 Alcohol use details: Social Substance use: never Substance use type: does not use Do You Feel Safe in your Home?: Yes Lack of Transportation: No Lack of Food: Never True Current Housing: I Have Housing Concerned About Future Housing: No Difficulty Paying Gas/Electric Bills: No Difficulty Paying for Meds: No Currently Unemployed: No Education: Master's Degree or Higher Difficulty w/ Childcare or Family Care: No Living arrangements: with family Spiritual care concerns: No Meds Home Medications and Allergies Home Medications Medication Instructions Recorded Confirmed Type tranexamic acid 650 mg tablet 1,300 mg PO TID PRN heavy periods 06/25/23 08/29/23 Rx #30 tabs Allergies Allergy/AdvReac Type Severity Reaction Status Date / Time Penicillins Allergy Unknown unknown Verified 08/29/23 09:24 Exam Const: Orientation/consciousness: oriented to person and oriented to place HENMT: Head: normal to inspection Eyes: General: appearance normal, both eyes and all related structures Resp: Effort & Inspection: normal respiratory effort Auscultation: clear to auscultation bilaterally Cardio: Rate: regular rate Rhythm: regular rhythm GI: Inspection: normal to inspection GI Palp: No Rebound tenderness present Neuro: General: oriented to person and oriented to place Cognition (Neuro): normal cognition Extrem: General: normal to inspection Psych: Appearance: grossly normal and well kempt Assessment and Plan Assessment and plan (1) Menorrhagia: Code(s): N92.0 - Excessive and frequent menstruation with regular cycle Status: Acute Assessment and Plan: Will proceed with endometrial ablation with hysteroscopy, possible D and C, possible removal of lesion if present.
--- NOTE | 2023-09-05 09:25 | WPDANESEPPF ---
Anes - Initial Pre Proc Eval Procedure: Operation Date: 09/05/23 10:00 Proposed Procedures p Hysteroscopy Dilation and Curettage with Monica Endometrial Ablation - Santos Ayala MD Date/Time: 09/05/23 09:25 Surgeon: Santos Ayala MD Pre Op Diagnosis: menorrhagia Patient Data Age: 33 Gender: F Height: 1.63 m Weight: 79.4 kg Last Vital Signs Temp 36.2 C L 09/05/23 08:19 Pulse 68 09/05/23 08:19 Resp 16 09/05/23 08:19 BP 129/75 09/05/23 08:19 Pulse Ox 100 09/05/23 08:19 O2 Del Method Room Air 09/05/23 08:19 Allergies Allergy/AdvReac Type Severity Reaction Status Date / Time Penicillins Allergy Unknown unknown Verified 09/05/23 08:51 Home Medications Medication Instructions Recorded Confirmed Type tranexamic acid 650 mg tablet 1,300 mg PO TID PRN heavy periods 06/25/23 09/05/23 Rx #30 tabs Patient hx anesthesia problems: none Family hx anesthesia problems: none Results Review: All pre-operative results and documents have been reviewed as part of the pre-operative evaluation. [facility] Past Medical History Medical History ASCUS with positive high risk HPV Surgical History Surgical History History of tonsillectomy Previous section Robert teeth removed Family History Family History Grandparent Carcinoma of colon Family history of malignant neoplasm of breast Father Family history of type 2 diabetes mellitus Social History Social History Smoking status: Never smoker Second hand tobacco smoke exposure: No Alcohol intake: current Drinks per week: 4 Alcohol use details: Social Substance use: never Substance use type: does not use Do You Feel Safe in your Home?: Yes Lack of Transportation: No Lack of Food: Never True Current Housing: I Have Housing Concerned About Future Housing: No Difficulty Paying Gas/Electric Bills: No Difficulty Paying for Meds: No Currently Unemployed: No Education: Master's Degree or Higher Difficulty w/ Childcare or Family Care: No Living arrangements: with family Spiritual care concerns: No Anes - Eval Final PreProcedure Day of Procedure 09/05/23 09:25 Patient weight: overweight Heart: regular rate and rhythm Lungs: clear to auscultation Airway: Mallampati scale class 1 Neurological: alert and oriented Last oral intake: >/= 8 hours ASA classification: II Emergent: no Anesthetic plan: proceed Anesthesia type and monitoring: general GIVS and standard monitoring Results Review: All pre-operative results and documents have been reviewed as part of the pre-operative evaluation. Informed Consent: The patient's anesthetic plan and its attendant risks and benefits were discussed with the patient/family/POA. Questions were solicited and answers provided to the satisfaction of the patient/family/POA.
[2023-09-05] MEDS: LACTATED RINGERS 1,000 ML 30 ML IV CONT ×2 (10:30→12:10)
[2023-09-05] MEDS: ceFAZolin 2 GM/D5W 50 ML 2 GM/50 ML BAG IVPB (10:42)
[2023-09-05] MEDS: LIDOCAINE HCL 1% LOCAL INJ 10 ML VIAL INFILTRATE (10:47)
--- NOTE | 2023-09-05 11:13 | WPDHPUPDATE1 ---
History and Physical Update Update Date/Time: 09/05/23 1040 History and Physical has been reviewed, including an updated exam of the patient. There are NO changes in the patient's condition. Risks, benefits, and alternatives have been discussed and questions answered. Patient agrees to proceed with procedure.
--- NOTE | 2023-09-05 11:13 | W.PM.PROC2 ---
Procedure Note - Detailed Date of Procedure 09/05/23 Pre-op Diagnosis menorrhagia Post-op Diagnosis Same Procedure Performed Monica endometrial ablation with hysteroscopy. Surgeon Santos Ayala MD Anesthesia MAC and Local Indications Menorrhagia Findings Uterus sound to 9 cm, cervical length 4 cm, normal uterine cavity Description of Procedure After informed consent was obtained patient was taken to the operating room and adequate IV sedation was administered. Attention was turned to the vagina. Speculum was inserted. Single-tooth tenaculum placed on the anterior lip of the cervix. The uterus was sounded to 9 cm. The cervix was dilated to an 8Pratt dilator. The cervical length was 4cm . The hysteroscope was inserted into the cavity. The findings were a normal uterine cavity. The hysteroscope was removed. The Monica ablation instrument was inserted into the cavity. Cavity assessment was performed and confirmed intact. The ablation was enabled. After 120 seconds the Monica stopped. The ablation instrument was removed. The hysteroscope was inserted and there was noted to be good eschar with the cavity. The hysteroscope was removed the single-tooth tenaculum was removed hemostasis was noted at the tenaculum site. Sponge count correct. The patient taken to recovery in stable condition. Estimated Blood Loss 5 Drains No Packing No Pathology None sent Complications No immediate complications Condition Stable Disposition Same day [facility] Billing Surgery - Charge Forward: Surgery Billing
[2023-09-05] MEDS: oxyCODONE HCL (*CRX) 5 MG TAB IR PO (11:29)
[2023-09-05] MEDS: fentaNYL CITRATE INJ (*CRX) 100 MCG/2 ML VIAL 25 MCG IV PUSH ×5 (12:02→13:03)
[2023-09-05] MEDS: ONDANSETRON INJ 4 MG/2 ML VIAL IV PUSH (12:07)
[2023-09-05] MEDS: KETOROLAC 15 MG/ML VIAL (*BKC) 30 MG IV PUSH (12:45)
== END 2023-09-05 13:25 | disposition home or self-care (01) ==
PROVIDERS: PCP Internal Medicine; Visit Provider Obstetrics & Gynecology
PROC: 0U5B8ZZ Destruction of Endometrium, Via Natural or Artificial Opening Endoscopic (ICD-10-PCS; CPT 58563; principal; 2023-09-05 10:00)
DX: N92.0 Excessive and frequent menstruation with regular cycle (principal); R87.810 Cervical high risk human papillomavirus (HPV) DNA test positive
CPT/HCPCS: 58563; A9270; J0690; J1885; J2250; J2405; J3010; J7030; J7120

== ENCOUNTER 2024-09-09 14:39 | Outpatient (CLI) | payer OTHER, SELFPAY ==
--- OUTSIDE RECORDS SUMMARY | 2024-09-09 15:31 | XMS_ITS ---
Care Plan - [facility] Created on: September 09, 2024 MAGALI APONTE : 1990 Sex: Female Author Organization [facility] Address [address] [place] [address] Phone Care Team Providers Care Family Service Caseworker Name Role Phone SIDRA KIM DO Unavailable [phone]
--- OUTSIDE RECORDS SUMMARY | 2024-09-09 15:31 | XMS_ITS | Clinical Summary ---
Author Organization [facility] Address [address] [place] [address] Phone Care Team Providers Care Sausage Maker Name Role Phone SIDRA KIM DO Unavailable [phone] Reason for Visit and Chief Complaint The Chief Complaint is: Pt here today for c/o sore throat since yesterday Problems Includes: Problems addressed during this encounter and other active Problems No Active Problems Plan of Treatment - Go to the emergency room if condition worsens - Last Documented On 07/20/2022 12:27PM ; [facility] - Disposition Patient or inspector fabric was instructed in use of antipyretics. Also, the patient is to return if there is persistnece of fever for more than 48 hours, pain or other new significant symptoms - Last Documented On 07/20/2022 12:27PM ; [facility] Instructions to patient Go to the emergency room if condition worsens Last Documented On 12:19PM ; [facility] Assessments Includes: Assessments from this encounter Findings - [J02.9 - Acute pharyngitis, unspecified] Pharyngitis - Last Documented On 07/20/2022 12:27PM ; [facility] Instructions Includes: Instructions from this encounter Instructions to patient Go to the emergency room if condition worsens Last Documented On 12:19PM ; [facility] Medical Equipment - Implanted Devices Includes: Current Devices No Medical Equipment Recorded Medications Includes: Medications discussed during this encounter and other current Medications New / Renewed during this visit LANETTE DEJESUS NP on 07/20/2022 Azithromycin 250 MG Oral Tablet Provider: LANETTE S ANJELICA SET UP TECHNICIAN 5 day supply: 6 each, 0 refills Diagnosis: Acute pharyngitis, unspecified Take as directed (2 tabs day one, then once daily) Pharmacy: [address], [id number] - Last Documented On 07/20/2022 12:35PM By LANETTE DEJESUS SET UP TECHNICIAN ; [facility] Current Medications (continue as prescribed) Zithromax Z-Cristopher 250 MG Oral Tablet 09/12/2022 Provider: TOMY VELEZ Diagnosis: Acute pharyngiti s, unspecified as directed Last Documented On 3 5:47PM By TOMY VELEZ ; [facility] Past Medications on file Dicyclomine HCl 20 MG Oral Tablet 11/11/2020 - 11/15/2020 Provider: KWAN GARCIA Diagnosis: Diarrhea, unspec ified QID PRN for diarrhea/abdominal cramping Last Documented On 11/11/2020 2:12PM By Kwan LINARES ; [facility] Medications Administered Includes: Administered Medications from this encounter No Administered Medications Recorded Vital Signs Includes: Vital Signs from this encounter Vital Name 07/20/2022 11:53A Pulse Rate-Sitting (bpm) 80 Temp-Oral (F) 98.9 Weight (lb) 177 Oxygen Saturation (%) 100 Last Documented: On 07/20/2022 11:53A M ; [facility] Results Includes: Results discussed during this encounter No Results Recorded For Specified Dates History of Present Illness Includes: History of Present Illness from this encounter PATRICIO APONTE is a 31 year old female. - Allergy list reviewed. - No systemic symptoms. Pt reports 2 day hx of sore throat and body aches, no measured fever, no NVD. 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 Social History Description Last Updated Tobacco non-user 07/20/2022 Last Documented On 3 12:27PM ; [facility] Smoking Status Unknown Procedures and Surgical History Includes: Procedures from this encounter Procedures Code Diagnosis Performing Provider Service L ocation Service Date Discussed with pt /family the etiology, natural course, possible complications, and treatment options for pharyngitis. Recommended OTC therapy with pain/fever control products, topical products (lozenges/sprays/beto les) as needed per franchise business consultant's recommendation. Recommended for pt/ family to call/return to office with follow up if pt persits with greater than 5 days of symptoms, worsens, or as otherwise directed. Discussed with pt / family that is pt contagious until fever free for at least 24 hours. Return to activities when pt feels well and fever free for 24 hours. Observe pt contacts for signs/symptoms of illness Last Documented On 3 12:26PM ; [facility] plan of care reviewed and agreed to Last Documented On 3 12:19PM ; [facility] plan of care reviewed and agreed to by t he patient Last Documented On 3 12:19PM ; [facility] patient to call if symptoms worsen or not improved to update patient's status as needed Last Documented On 3 12:19PM ; [facility] use of tobacco assessment performed 1000F Last Documented On 3 11:53AM ; [facility] Increase fluids Last Documented On 3 12:19PM ; [facility] Clinical summary provided to patient Last Documented On 3 12:19PM ; [facility] Medical History Includes: Medical History addressed during this encounter Description Last Updated Not taking OTC medications 11/11/2020 Last Documented On 3 11:52AM ; [facility] No Contact with and (Suspected) exposure to COVID-19 11/11/2020 Last Documented On 3 11:52AM ; [facility] No fall 11/11/2020 Last Documented On 3 11:52AM ; [facility] No exposure to a contagious disease 05/16 Last Documented On 3 11:52AM ; [facility] No exposure to a viral disease 0 Last Documented On 3 11:52AM ; [facility] Family History Includes: Family History addressed during this encounter No Family History Recorded Review of Systems Includes: Review of Systems from this encounter Systemic: Not feeling poorly (malaise). No fever, no chills, no night sweats, and no recent weight change. Head: No headache, no facial pain, and no sinus pain. Otolaryngeal: No hearing loss, no earache, no tinnitus, no nasal discharge, and no hoarseness. Sore throat. Pulmonary: No dyspnea, no cough, and no wheezing. Gastrointestinal: No nausea and without vomiting. Mental Status Includes: Mental Status from this encounter No Mental Status Recorded Functional Status Includes: Functional Status from this encounter No Functional Status Recorded Physical Exam Includes: Physical Exam from this encounter Allergies Includes: Active Allergies Substance Type Reaction Onset Date Resolved Date Statu s Penicillin V Potassium Allergy 01/31/2016 Active Last Documented On 3 5:21PM ; [facility] Encounters Encounter Provider Location Date Check-In Time Check-Out Time Diagnosis COVID SICK VISIT- ESTABLISHED PATIENT LANETTE S ANJELICA FRIAS [facility] 07/20/19 23 11:48AM 12:27PM Pharyngitis Insurance Includes: Active Insurance Policies Plan Name Member ID Group # Subscriber Relationship Effect thang Dates - [facility] [id number] Clinical Notes Includes: Clinical Notes from this encounter * Progress note Date Encounter Last Documented by 07/20/2022 COVID SICK VISIT- ESTABLISHED PA EVANGELINANT Last documented on 07/20/2022; 12:27 PM, LANETTE DEJESUS NP; [facility] Active Problems & Conditions - No Active Problems Chief Complaint The Chief Complaint is: Pt here today for c/o sore throat since yesterday. History of Present Illness MAGALI APONTE is a 31 year old female. - Allergy list reviewed. - No systemic symptoms. Pt reports 2 day hx of sore throat and body aches, no measured fever, no NVD. 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 Past Medical/Surgical History Reported: Medications: Not taking OTC medications. Exposure: No exposure to a contagious disease, not to a viral disease, and not Contact with and (Suspected) exposure to COVID-19. Physical Trauma: No fall. Social History Tobacco use: Tobacco non-user. Allergies - Penicillin V Potassium Review Of Systems Systemic: Not feeling poorly (malaise). No fever, no chills, no night sweats, and no recent weight change. Head: No headache, no facial pain, and no sinus pain. Otolaryngeal: No hearing loss, no earache, no tinnitus, no nasal discharge, and no hoarseness. Sore throat. Pulmonary: No dyspnea, no cough, and no wheezing. Gastrointestinal: No nausea and without vomiting. Physical Findings - Vitals taken 07/20/2022 11:53 am Pulse Rate-Sitting 80 bpm Temp-Oral 98.9 F Weight 177 lbs Oxygen Saturation 100 % General Appearance: - Well-appearing. - In no acute distress. Eyes: General/bilateral: Pupils: - PERRLA. Ears: Right Ear: External Auditory Canal: - Normal. - No external auditory canal discharge. Tympanic Membrane: - Serous exudate behind tympanic membrane. - Normal. - No bulging tympanic membrane. - No retraction of tympanic membrane. - Not erythematous. - No perforation. - No decreased mobility of tympanic membrane. - No pus behind tympanic membrane. Left Ear: External Auditory Canal: - Normal. - No external auditory canal discharge. Tympanic Membrane: - Serous exudate behind tympanic membrane. - Normal. - No bulging tympanic membrane. - No retracted tympanic membrane. - Not erythematous. - No perforation. - No decreased mobility of tympanic membrane. - No pus behind tympanic membrane. Nose: General/bilateral: Discharge: - No nasal discharge. Cavity: - Nasal mucosa not red. - Nasal turbinate not hypertrophied. Sinus Tenderness: - No sinus tenderness. Pharynx: Oropharynx: - Inflamed. - Soft palate was normal tonsils surgically absent. Mucosal: - Pharynx showed no accumulation of mucous. Lymph Nodes: - Adenopathy. Lungs: - Clear to auscultation. Cardiovascular: Heart Rate And Rhythm: - Normal. Heart Sounds: - Normal. Assessment - [J02.9 - Acute pharyngitis, unspecified] Pharyngitis Therapy - Increase fluids. - Clinical summary provided to patient. - Patient to call if symptoms worsen or not improved to update patient's status as needed. - Plan of care reviewed and agreed to by the patient. Discussed with pt /family the etiology, natural course, possible complications, and treatment options for pharyngitis. Recommended OTC therapy with pain/fever control products, topical products (lozenges/sprays/gargles) as needed per franchise business consultant's recommendation. Recommended for pt/ family to call/return to office with follow up if pt persits with greater than 5 days of symptoms, worsens, or as otherwise directed. Discussed with pt / family that is pt contagious until fever free for at least 24 hours. Return to activities when pt feels well and fever free for 24 hours. Observe pt contacts for signs/symptoms of illness. Pt unable to tolerate oral strep testing due to extreme gag reflex. She request antibiotic tx. Plan StartCited - Acute pharyngitis, unspecified Azithromycin 250 MG each Take as directed (2 tabs day one, then once daily), 5 days, 0 refills EndCited - Go to the emergency room if condition worsens - Disposition Patient or inspector fabric was instructed in use of antipyretics. Also, the patient is to return if there is persistnece of fever for more than 48 hours, pain or other new significant symptoms Practice Management Use of tobacco assessment performed. Health Reminders - Assess Tobacco Use satisfied 07/20/2022.
--- OUTSIDE RECORDS SUMMARY | 2024-09-09 15:31 | XMS_ITS | Clinical Summary ---
Author Organization [facility] Address [address] [address] Phone Care Team Providers Care Early Childhood Specialist Name Role Phone SIDRA KIM DO Unavailable [phone] Reason for Visit and Chief Complaint The Chief Complaint is: cough, SOB, fatigue, headache, symptoms x2 days Problems Includes: Problems addressed during this encounter and other active Problems No Active Problems Plan of Treatment - The options include close observation - Last Documented On 05/26/2020 5:50PM ; [facility] - Continue current medication - Last Documented On 05/26/2020 5:50PM ; [facility] Rapid COVID testing performed today and was negative. Patient advised that they may return to work/school when fever free for 24 hours and symptoms have improved. Call with development of additional or worsening symptoms. Go to ED with severe respiratory symptoms. - Last Documented On 05/26/2020 5:50PM ; [facility] Assessments Includes: Assessments from this encounter Findings - Upper respiratory infection [Acute upper respiratory infection, unspecified] - Last Documented On 05/26/2020 5:50PM ; [facility] Medical Equipment - Implanted Devices Includes: Current Devices No Medical Equipment Recorded Medications Includes: Medications discussed during this encounter and other current Medications Current Medications (continue as prescribed) Zithromax Z-Cristopher 250 MG Oral Tablet 09/12/2022 Provider: TOMY VELEZ Diagnosis: Acute pharyngiti s, unspecified as directed Last Documented On 5:47PM By TOMY VELEZ ; [facility] Medications Administered Includes: Administered Medications from this encounter No Administered Medications Recorded Vital Signs Includes: Vital Signs from this encounter Vital Name 05/26/2020 05:14P Pulse Rate-Sitting (bpm) 84 Temp-Oral (F) 98.9 Oxygen Saturation (%) 99 Last Documented: On 05/26/2020 5:15PM ; [facility] Results Includes: Results discussed during this encounter Rapid COVID Test [facility] Ordered by KWAN GARCIA on 05/16 Collected: Reported: 05/26/2020 17:45 Last Documented On 0 5:46PM ; [facility] Reviewed on 05/26/2020; All test results are final unless otherwise noted. Rapid COVId neg N (Normal) Last Documented On 0 5:45PM ; [facility] Int. QC Acceptable yes N (Normal) Last Documented On 0 5:45PM ; [facility] Lot # and Exp. Date [id number] 09/05/20 N (Normal) Last Documented On 0 5:45PM ; [facility] History of Present Illness Includes: History of Present Illness from this encounter HPI AMY APONTE is a 29 year old female. - Allergy list reviewed - Medication reconciliation performed - Feeling poorly (malaise) - No fever - Headache - No sinus pain - No swollen glands in the neck - No ear symptoms - No earache - No nasal discharge - No postnasal drip - No nasal passage blockage (stuffiness) - No sneezing - No sore throat - No chest pain or discomfort - Cough - Not feeling congested in the chest - No shortness of breath - Not coughing up sputum - No wheezing - Normal appetite - No nausea - No vomiting - No abdominal pain - No diarrhea - No myalgias Amy is a 29-year-old female patient that presented to the respiratory clinic for cough, shortness of breath, fatigue and headache that has been present for two days. She denies any known exposure to COVID. She has been taking Tylenol for symptoms. Social History No Social History Recorded - Smoking Status Unknown Procedures and Surgical History Includes: Procedures from this encounter Procedures Code Diagnosis Performing Provider Service L ocation Service Date Pt to use OTC fever/pain product as needed per product instruction.~ Last Documented On 0 5:46PM ; [facility] Pt to use OTC expectorant product as nee ded per product instruction.~ Last Documented On 0 5:46PM ; [facility] Pt to use OTC cough product as needed pe r product instruction.~ Last Documented On 0 5:46PM ; [facility] plan of care reviewed and agreed to Last Documented On 0 5:46PM ; [facility] patient to call if symptoms worsen or not improved to update patient's status as needed Last Documented On 0 5:46PM ; [facility] Medical History Includes: Medical History addressed during this encounter Description Last Updated Taking OTC medications 05/26/2020 Last Documented On 0 5:50PM ; [facility] No exposure to a contagious disease 05/16 Last Documented On 0 5:50PM ; [facility] No exposure to a viral disease 0 Last Documented On 0 5:50PM ; [facility] Family History Includes: Family History addressed during this encounter No Family History Recorded Review of Systems Includes: Review of Systems from this encounter Systemic: No fever. Head: Headache. Otolaryngeal: No earache, no nasal discharge, and no sore throat. Cardiovascular: No chest pain or discomfort. Pulmonary: Cough. No wheezing. Gastrointestinal: No vomiting, no abdominal pain, and no diarrhea. Mental Status Includes: Mental Status from this encounter No Mental Status Recorded Functional Status Includes: Functional Status from this encounter No Functional Status Recorded Physical Exam Includes: Physical Exam from this encounter Allergies Includes: Active Allergies Substance Type Reaction Onset Date Resolved Date Statu s Penicillin V Potassium Allergy 01/31/2016 Active Last Documented On 3 5:21PM ; [facility] Encounters Encounter Provider Location Date Check-In Time Check-Out Time Diagnosis SICK VISIT KWAN GARCIA [facility] 05/26/20 20 4:50PM 5:36PM Upper Respiratory Infection Insurance Includes: Active Insurance Policies Plan Name Member ID Group # Subscriber Relationship Effect thang Dates - [id number] PAULA APONTE Clinical Notes Includes: Clinical Notes from this encounter No Clinical Notes Recorded
--- OUTSIDE RECORDS SUMMARY | 2024-09-09 15:31 | XMS_ITS | Clinical Summary ---
Author Organization [facility] Address [address] [place] [address] Phone Care Team Providers Care Supervisor Cd Area Name Role Phone SIDRA KIM DO Unavailable [phone] Reason for Visit and Chief Complaint The Chief Complaint is: Stomach pain, diarrhea, fatigue, sharp abdominal pain Problems Includes: Problems addressed during this encounter and other active Problems No Active Problems Plan of Treatment - The options include close observation - Last Documented On 11/11/2020 3:06PM ; [facility] - Continue current medication - Last Documented On 11/11/2020 3:06PM ; [facility] Rapid COVID testing performed today and was negative. Patient to continue to monitor symptoms closely as rapid testing may have false negative results. Patient advised that they may return to work/school when fever free for 24 hours and symptoms have improved. Call with development of additional or worsening symptoms. Go to ED with severe respiratory symptoms. - Last Documented On 11/11/2020 3:06PM ; [facility] Advised patient to monitor symptoms closely. Clear liquid today. Advance as tolerated. Go to ED with development of severe abdominal pain. - Last Documented On 11/11/2020 3:06PM ; [facility] Assessments Includes: Assessments from this encounter Findings - Contact with and (Suspected) exposure to COVID-19 [Contact with and (suspected) exposure to COVID-19] - Last Documented On 11/11/2020 3:06PM ; [facility] Medical Equipment - Implanted Devices Includes: Current Devices No Medical Equipment Recorded Medications Includes: Medications discussed during this encounter and other current Medications New / Renewed during this visit KWAN GARCIA on 11/11/2020 Dicyclomine HCl 20 MG Oral Tablet Provider: KWAN Curran 4 day supply: 12 tablet, 0 refills Diagnosis: Diarrhea, unspecified QID PRN for diarrhea/abdomin al cramping Pharmacy: [address], [id number] - Last Documented On 11/11/2020 2:12PM By Kwan LINARES ; [facility] Current Medications (continue as prescribed) Zithromax Z-Cristopher 250 MG Oral Tablet 09/12/2022 Provider: TOMY VELEZ Diagnosis: Acute pharyngiti s, unspecified as directed Last Documented On 5:47PM By TOMY VELEZ ; [facility] Past Medications on file Azithromycin 250 MG Oral Tablet 07/20/2022 - 07/25/2022 Provider: LANETTE DEJESUS NP Diagnosis: Acute pharyngiti s, unspecified Take as directed (2 tabs day one, then once daily) Last Documented On 07/20/2022 12:35PM By LANETTE DEJESUS NP ; [facility] Medications Administered Includes: Administered Medications from this encounter No Administered Medications Recorded Vital Signs Includes: Vital Signs from this encounter Vital Name 11/11/2020 01:38P Pulse Rate-Sitting (bpm) 114 Temp-Oral (F) 100.4 Oxygen Saturation (%) 98 Last Documented: On 11/11/2020 1:39PM ; [facility] Results Includes: Results discussed during this encounter Rapid COVID Test [facility] Ordered by KWAN GARCIA on 10/15 Collected: Reported: 11/11/2020 13:49 Last Documented On 1:50PM ; [facility] Reviewed on 11/11/2020; All test results are final unless otherwise noted. Rapid COVId NEG N (Normal) Last Documented On 1:49PM ; [facility] Int. QC Acceptable YES N (Normal) Last Documented On 1:49PM ; [facility] Lot # and Exp. Date [id number] 01/25/21 N (Normal) Last Documented On 1 1:49PM ; [facility] History of Present Illness Includes: History of Present Illness from this encounter HPI AMY APONTE is a 30 year old female. - Allergy list reviewed - Medication reconciliation performed - Feeling tired - Fever low (under 100 F by thermometer) - Not feeling poorly (malaise) - No chills - No headache - No sinus pain - No swollen glands in the neck - No ear symptoms - No earache - No nasal discharge - No postnasal drip - No nasal passage blockage (stuffiness) - No sneezing - No sore throat - No chest pain or discomfort - Not feeling congested in the chest - No shortness of breath - No cough - Not coughing up sputum - No wheezing - Appetite not normal - Abdominal pain associated with diarrhea - Diarrhea - No nausea - No vomiting - No myalgias - No anosmia - No taste disturbances - Not unpleasantly altered - No skin symptoms Amy is a 30-year-old female patient that presented to the walk-in clinic for abdominal cramping, diarrhea and fatigue that has been present for two days. She reports that she has had decreased appetite. No known exposure to COVID. Social History Description Last Updated Current nonsmoker 11/11/2020 Last Documented On 1 3:06PM ; [facility] Smoking Status Unknown Procedures and Surgical History Includes: Procedures from this encounter Procedures Code Diagnosis Performing Provider Service L ocation Service Date Pt to use OTC fever/pain product as needed per product instruction.~ Last Documented On 1 2:05PM ; [facility] plan of care reviewed and agreed to Last Documented On 1 2:05PM ; [facility] patient to call if symptoms worsen or not improved to update patient's status as needed Last Documented On 1 2:05PM ; [facility] review of medications documented 1160F Last Documented On 1 1:39PM ; [facility] Medical History Includes: Medical History addressed during this encounter Description Last Updated Not taking OTC medications 11/11/2020 Last Documented On 1 3:06PM ; [facility] No Contact with and (Suspected) exposure to COVID-19 11/11/2020 Last Documented On 1 3:06PM ; [facility] No fall 11/11/2020 Last Documented On 1 3:06PM ; [facility] No exposure to a contagious disease 05/16 Last Documented On 1 1:38PM ; [facility] No exposure to a viral disease 0 Last Documented On 1 1:38PM ; [facility] Family History Includes: Family History addressed during this encounter No Family History Recorded Review of Systems Includes: Review of Systems from this encounter Systemic: Feeling poorly (malaise) and fever low (under 100 F by thermometer). No chills. Head: No headache and no sinus pressure. Otolaryngeal: No earache, no nasal discharge, and no sore throat. Cardiovascular: No chest pain or discomfort. Pulmonary: No cough and no wheezing. Gastrointestinal: No vomiting. Abdominal pain. No abdominal pain. Diarrhea. No diarrhea. Musculoskeletal: Muscle aches. Skin: No skin lesions. Mental Status Includes: Mental Status from this encounter No Mental Status Recorded Functional Status Includes: Functional Status from this encounter No Functional Status Recorded Physical Exam Includes: Physical Exam from this encounter Allergies Includes: Active Allergies Substance Type Reaction Onset Date Resolved Date Statu s Penicillin V Potassium Allergy 01/31/2016 Active Last Documented On 3 5:21PM ; [facility] Encounters Encounter Provider Location Date Check-In Time Check-Out Time Diagnosis COVID SICK VISIT- ESTABLISHED PATIENT KWAN ARMASP-C [facility] 11/12/19 21 1:27PM 1:53PM Contact with and (Suspected) Exposure To Covid-19 Insurance Includes: Active Insurance Policies Plan Name Member ID Group # Subscriber Relationship Effect thang Dates - [id number] PAULA APONTE Clinical Notes Includes: Clinical Notes from this encounter No Clinical Notes Recorded
--- OUTSIDE RECORDS SUMMARY | 2024-09-09 15:31 | XMS_ITS | Clinical Summary ---
Author Organization [facility] Address [address] [place] [address] Phone Care Team Providers Care Customer Services Supervisor Name Role Phone SIDRA KIM DO Unavailable [phone] Reason for Visit and Chief Complaint The Chief Complaint is: pt has a little cough, and sore throat for 2 days Problems Includes: Problems addressed during this encounter and other active Problems No Active Problems Plan of Treatment - Return to the clinic if condition worsens or new symptoms arise - Last Documented On 09/12/2022 5:44PM ; [facility] - Patient will call for appointment as needed - Last Documented On 09/12/2022 5:44PM ; [facility] Instructions to patient Instructions for patient Last Documented On 3 5:40PM ; [facility] Assessments Includes: Assessments from this encounter Findings - Acute upper respiratory infection - Last Documented On 09/12/2022 5:44PM ; [facility] Instructions Includes: Instructions from this encounter Instructions to patient Instructions for patient Last Documented On 3 5:40PM ; [facility] Medical Equipment - Implanted Devices Includes: Current Devices No Medical Equipment Recorded Medications Includes: Medications discussed during this encounter and other current Medications New / Renewed during this visit TOMY VELEZ on 09/12/2022 Zithromax Z-Cristopher 250 MG Oral Tablet Provider: TOMY VELEZ 5 day supply: 6 tablet, 0 refills Diagnosis: Acute pharyngitis, unspecified as directed Pharmacy: [facility] [address], [id number] - Last Documented On 5:47PM By TOMY LINARES-ANNABELLA ; [facility] Past Medications on file Azithromycin 250 MG Oral Tablet 07/20/2022 - 07/25/2022 Provider: LANETTE DEJESUS NP Diagnosis: Acute pharyngiti s, unspecified Take as directed (2 tabs day one, then once daily) Last Documented On 07/20/2022 12:35PM By LANETTE DEJESUS NP ; [facility] Dicyclomine HCl 20 MG Oral Tablet 11/11/2020 - 11/15/2020 Provider: KWAN GARCIA Diagnosis: Diarrhea, unspec ified QID PRN for diarrhea/abdominal cramping Last Documented On 11/11/2020 2:12PM By Kwan LINARES ; [facility] Medications Administered Includes: Administered Medications from this encounter No Administered Medications Recorded Vital Signs Includes: Vital Signs from this encounter Vital Name 09/12/2022 05:21P Blood Pressure Sitting (mmHg) 120/82 Pulse Rate-Sitting (bpm) 76 Temp-Oral (F) 98.3 Height (in) 65 Weight (lb) 177.2 Body Mass Index 29.5 Body Surface Area 1.9 Oxygen Saturation (%) 98 Last Documented: On 09/12/2022 5:21PM ; [facility] Results Includes: Results discussed during this encounter No Results Recorded For Specified Dates History of Present Illness Includes: History of Present Illness from this encounter PATRICIO APONTE is a 32 year old female. - Allergy list reviewed - Medication list reviewed - Duration of symptoms - Previously well - No fever - No chills - No sinus pain - No sinus pressure - No swollen glands in the neck - No itching of the eyes - No discharge from the eyes - Nasal discharge - Sore throat - No earache - The ears do not feel pressured - The ears do not feel full - No discharge from the ears - No postnasal drip - No nasal passage blockage (stuffiness) - No sneezing - No itchy throat - No chest pain or discomfort - No palpitations - Cough - Not feeling congested in the chest - No dyspnea - No wheezing - No rash pt to clinic for above symptoms x 2 days daughter has strep Social History Description Last Updated Tobacco non-user 07/20/2022 Last Documented On 3 5:21PM ; [facility] Current nonsmoker 11/11/2020 Last Documented On 3 5:21PM ; [facility] Smoking Status Unknown Procedures and Surgical History Includes: Procedures from this encounter Procedures Code Diagnosis Performing Provider Service L ocation Service Date plan of care reviewed and agreed to by the patient Last Documented On 3 5:40PM ; [facility] Patient verbalizes understanding Last Documented On 3 5:40PM ; [facility] Increase fluids Last Documented On 3 5:40PM ; [facility] Clinical summary provided to patient Last Documented On 3 5:40PM ; [facility] Medical History Includes: Medical History addressed during this encounter No Medical History Recorded Family History Includes: Family History addressed during this encounter Description Last Updated Family history unchanged 09/12/2022 Last Documented On 3 5:44PM ; [facility] Review of Systems Includes: Review of Systems from this encounter Otolaryngeal: Nasal discharge and sore throat. Mental Status Includes: Mental Status from this encounter Description Oriented to time, place, and person Functional Status Includes: Functional Status from this encounter No Functional Status Recorded Physical Exam Includes: Physical Exam from this encounter Allergies Includes: Active Allergies Substance Type Reaction Onset Date Resolved Date Statu s Penicillin V Potassium Allergy 01/31/2016 Active Last Documented On 3 5:21PM ; [facility] Encounters Encounter Provider Location Date Check-In Time Check-Out Time Diagnosis COVID SICK VISIT- ESTABLISHED PATIENT TOMY VELEZ [facility] 09/13/19 23 5:09PM 5:40PM Upper Respiratory Infection Acute Insurance Includes: Active Insurance Policies Plan Name Member ID Group # Subscriber Relationship Effect thang Dates 1 - [id number] PAULA APONTE Clinical Notes Includes: Clinical Notes from this encounter * Progress note Date Encounter Last Documented by 09/12/2022 COVID SICK VISIT- ESTABLISHED PA ANMOL Last documented on 09/12/2022; 5:44 PM, TOMY VELEZ; [facility] Active Problems & Conditions - No Active Problems Chief Complaint The Chief Complaint is: Pt has a little cough, and sore throat for 2 days. History of Present Illness MAGALI APONTE is a 32 year old female. - Allergy list reviewed - Medication list reviewed - Duration of symptoms - Previously well - No fever - No chills - No sinus pain - No sinus pressure - No swollen glands in the neck - No itching of the eyes - No discharge from the eyes - Nasal discharge - Sore throat - No earache - The ears do not feel pressured - The ears do not feel full - No discharge from the ears - No postnasal drip - No nasal passage blockage (stuffiness) - No sneezing - No itchy throat - No chest pain or discomfort - No palpitations - Cough - Not feeling congested in the chest - No dyspnea - No wheezing - No rash pt to clinic for above symptoms x 2 days daughter has strep Current Medication - None Social History Tobacco use: Current nonsmoker. Allergies - Penicillin V Potassium Family History Family history unchanged Review Of Systems Otolaryngeal: Nasal discharge and sore throat. Physical Findings - Vitals taken 09/12/2022 05:21 pm BP-Sitting 120/82 mmHg Pulse Rate-Sitting 76 bpm Temp-Oral 98.3 F Height 65 in Weight 177 lbs 3.2 oz Body Mass Index 29.5 kg/m2 Body Surface Area 1.9 m2 Oxygen Saturation 98 % General Appearance: - Alert. - Well developed. - Well nourished. - In no acute distress. Neck: Suppleness: - Neck demonstrated no decrease in suppleness. Eyes: General/bilateral: Pupils: - PERRLA. Ears: General/bilateral: External Auditory Canal: - External auditory meatus normal. Tympanic Membrane: - Normal. Nose: General/bilateral: Discharge: - Nasal discharge. - Rhinorrhea. Cavity: - Nasal turbinate not swollen. Sinus Tenderness: - No sinus tenderness. Pharynx: Oropharynx: - Abnormal. - Inflamed. Mucosal: - Pharynx showed no accumulation of purulent mucous. Lymph Nodes: - Anterior cervical lymph nodes were not enlarged. - Posterior cervical lymph nodes were not enlarged. - Submental lymph nodes were not enlarged. - Preauricular lymph nodes were not enlarged. - Postauricular lymph nodes were not enlarged. - Suboccipital lymph nodes were not enlarged. Lungs: - Normal breath sounds/voice sounds. - No wheezing was heard. - No rhonchi were heard. - No rales/crackles were heard. Cardiovascular: Heart Rate And Rhythm: - Normal. Murmurs: - No murmurs were heard. Abdomen: Auscultation: - Bowel sounds were normal. Palpation: - Abdominal non-tender. - No mass was palpated in the abdomen. Neurological: - Oriented to time, place, and person. Gait And Stance: - Normal. Psychiatric: Mood: - Euthymic. Skin: - General appearance was normal. - Texture was normal. - Turgor was normal. - Color and pigmentation were normal. - Moisture was normal. - Temperature was normal. Assessment - Acute upper respiratory infection Therapy - Increase fluids. - Patient verbalizes understanding. - Clinical summary provided to patient. - Plan of care reviewed and agreed to by the patient. Counseling/Education - Instructions for patient Discussed Increase fluid intake Rest as much as possible Encourage use of humidifier- Regularly clean the humidifier so that bacteria does not grow Encouraged vitamin C and Zinc to help boost immune system Cool liquids to soothe the throat, throat sprays, throat lozenges, cool liquids to help soothe the throat Acetaminophen or ibuprofen as needed for pain/fever Antihistamine as needed- such as zyrtec, claratin, or benadryl Normal saline nasal spray or Netti Pot with sterile water as needed Steam Inhalation Warm compress to sinus area Plan StartCited - Acute pharyngitis, unspecified Zithromax Z-Cristopher 250 MG tablet as directed, 5 days, 0 refills EndCited - Return to the clinic if condition worsens or new symptoms arise - Patient will call for appointment as needed Health Reminders - Assess BMI satisfied 09/12/2022. - Assess Tobacco Use satisfied 09/12/2022.
--- OUTSIDE RECORDS SUMMARY | 2024-09-09 15:31 | XMS_ITS | Clinical Summary ---
Author Organization [facility] [address] - [address]22 Address [address] [facility] 3rd [place] [address] Phone Care Team Providers Care Distribution Center Supervisor Name Role Phone Unavailable Primary Care Provider Unavailabl e Social History Tobacco Use Types Packs/Day Years Used Date Smoking Tobacco: Never Assessed Comments Unknown Sex and Gender Information Value Date Recorded Sex Assigned at Not on file Legal Sex Female 7:52 AM CLINICAL OB Gender Identity Not on file Sexual Orientation Not on file Plan of Treatment Health Maintenance Due Date Last Done Comments HEPATITIS B VACCINES (1 of 3 - 19+ 3-dose series) 08/23/2007 PAP SMEAR 2009 CERVICAL CANCER SCREENING 2018 HPV/Cotest (30-65) 2018 PAP SMEAR 2018 INFLUENZA VACCINE (#1) 2024 0, 03/29/2019 COVID-19 Vaccine (2023- season) 2024 07/29/2020, 07/01/2020 DTAP/TDAP/TD VACCINES (3 - Td or Tdap) 12/07/2028 12/07/2018, 12/15/2015 HPV VACCINES Aged Out No longer eligi ble based on patient's age to complete this topic Insurance * Guarantor: Amy Aponte Account Type Relation to Patient Date of Phone Billing Address Personal/Family Self [address] [place] [address] IGNACIO SHERIDANEW Member Subscriber Plan / Payer (Ef fective 2016-Present) Name:Amy Aponte Relation to Subscriber:Spouse Name:JALIL APONTE Date of :1983 (Home) Address: [address] [place] [address] Payer ID:Not on file Type:HMO Address: [facility] [id number] [id number]
--- OUTSIDE RECORDS SUMMARY | 2024-09-09 15:31 | XMS_ITS | Referral Summary ---
Author Organization [facility] A Address [address] [place] [address] Care Team Providers Care Environmental Planning Engineer Name Role Phone William Smith MD Primary Care Provider Santos Ayala MD Unavailable [phone] Encounters Date Type Department Care Team Description 08/16/2024 3:00 PM STRAIGHT RULING MACHINE OPERATOR Office Visit [facility] Primary Care at [address] [place] [address] William Smith MD Moderate episode of recurrent major depressive disorder (HCC) (Primary Dx); Class 1 obesity due to excess calories without serious comorbidity with body mass index (BMI) of 31.0 to 31.9 in adult; Vitamin D deficiency; Anemia, unspecified type; Encounter for hepatitis C screening test for low risk patient; Need for hepatitis B screening test 07/26/2024 Orders Only [facility] Health Information Management [address] [place] [id number] Scanning, Provider from Last 3 Months Allergies Active Allergy Reactions Criticality Noted Date Comments Penicillins Rash Reaction: Rash, Medications buPROPion XL (WELLBUTRIN XL) 150 mg 24 hr tabletIndicatio ns:Moderate episode of recurrent major depressive disorder (HCC) Take 1 tablet (150 mg total) by mouth every morning 90 tablet 1 5 08/17/19 26 Active sertraline (ZOLOFT) 50 mg tabletIndicatio ns:Moderate episode of recurrent major depressive disorder (HCC) Take 1 tablet (50 mg total) by mouth daily 90 tablet 1 5 08/17/19 26 Active sertraline (ZOLOFT) 50 mg tabletIndicatio ns:Moderate episode of recurrent major depressive disorder (HCC) Take 1 tablet (50 mg total) by mouth daily 90 tablet 1 4 08/17/19 25 Discontinu ed(Reorder ) Active Problems Problem Noted Date Diagnosed Date Microcytic anemia 10/22/2023 Assessment & Plan (10/22/2023 3:40 AM CDT): - mild but noted on most recent labs testing - recheck CBC with iron studies, order placed Lab Results Component Value Date WBC 7.6 07/22/2023 HGB 11.6 (L) 07/22/2023 HCT 35.3 (L) 07/22/2023 MCV 81.0 (L) 07/22/2023 LABPLAT 394 07/22/2023 Preventative health care 10/21/2023 Assessment & Plan (10/22/2023 3:41 AM CDT): - New or chronic worsening conditions: depressed affect - Mental health: ongoing depression, see A/P section - Dental health: Recommend regular dental care and cleaning. Discussed importance of regular tooth brushing, flossing, and dental visits. - Nutrition: Recommend moderation in sodium/caffeine intake, saturated fat and cholesterol, caloric balance, sufficient intake of fresh fruits, vegetables - Exercise: leads an active lifestyle, Recommend to exercise at least 30 minutes moderate to vigorous exercise most days of the week. (minimum 150 minutes weekly) - Immunizations: Age and sex appropriate immunizations reviewed and offered - Cervical Cancer screening: Up to date, follows with OBGYN - Breast Cancer screening: not indicated - Colon cancer screening: not indicated - Lung cancer screening: not indicated - Bone desnity/osteoporosis screening:not indicated - control: vasectomy, and has had uterine ablation herself Moderate episode of recurrent major depressive d isorder 10/21/2023 Assessment & Plan (08/16/2024 3:36 PM STRAIGHT RULING MACHINE OPERATOR): - chronic conditon, well controlled but reports weight gain with medication - prior hx of depression x3 - was medicated after her 1st and 3rd child - no signifcant anxiety - has been on other medications, Paxil (did not help), Lexapro (felt not well), wellbutrin in past caused more agitation/irritability - currently on sertraline 50 mg daily with good results but has noticed weight gain similar to past experience - lets try Wellbutrin XL 150 mg daily to take along with Sertraline 50 mg daily and see if it can counteract the Weight gain associated with Sertraline and the mood changes she had in past may also be negated by the presence of sertraline Assessment & Plan (02/22/2024 11:53 PM CDT): - chronic conditon, improved, better controlled - prior hx of depression x3 - was medicated after her 1st and 3rd child - no signifcant anxiety - has been on other medications, Paxil (did not help), Lexapro (felt not well) - wellbutrin in past caused more agitation/irritability - started Zoloft on last visit at 50 mg with significant improvement - continue current management Assessment & Plan (12/15/2023 10:30 AM CDT): - chronic conditon, worse - prior hx of depression x3 - was medicated after her 1st and 3rd child - no signifcant anxiety - currently not on any medications - was on Zoloft after first and worked but caused weight gain - has been on other medications, Paxil (did not help), Lexapro (felt not well) - has noticed some depressed affect and interested in getting back on medication and does not want weight gain - started Wellbutrin on last visit but caused more agitation/irritability - willing to get back on Zoloft, restart medication - start Zoloft 50 mg daily and can taper up in 6 weeks if needed, to let me know Assessment & Plan (10/22/2023 3:45 AM CDT): - chronic conditon, worse - prior hx of depression x3 - was medicated after her 1st and 3rd child - no signifcant anxiety - currently not on any medications - was on Zoloft after first and worked but caused weight gain - has been on other medications, Lexapro felt nto well - has noticed some depressed affect and interested in getting back on medication and does not want weight gain - start Wellbutrin, script sent in with taper up instruction Vitamin D deficiency 07/27/2023 Assessment & Plan (10/21/2023 4:19 PM CDT): - recent diagnosis, not at/near goal - recent lab work shows significantly decreased vitamin-D level - patient denies any previous diagnosis of this - currently on vitamin D3 2000-international units daily - continue current management Lab Results Component Value Date [id number] 24 (L) 07/22/2023 Assessment & Plan (07/27/2023 9:58 AM STRAIGHT RULING MACHINE OPERATOR): -new diagnosis, not at/near goal -recent lab work shows significantly decreased vitamin-D level -patient denies any previous diagnosis of this -vitamin D3 prescription sent in [facility] 07/27/2023 Assessment & Plan (07/27/2023 10:11 AM STRAIGHT RULING MACHINE OPERATOR): -new complaint -onset x1 week -patient denies any particular trigger, but does state it seems to get worse throughout the day -meclizine prescribed Class 1 obesity due to exces s calories without serious comorbidity with body mass index (BMI) of 31.0 to 31.9 in adult 01/02/2023 Assessment & Plan (08/16/2024 3:38 PM STRAIGHT RULING MACHINE OPERATOR): Wt Readings from Last 3 Encounters: 08/16/24 86.6 kg (191 lb) 02/10/24 79 kg (174 lb 3.2 oz) 12/15/23 80 kg (176 lb 4.8 oz) Body mass index is 31.29 kg/m . - chronic, not at goal, worse, noted to have had weight gain, reports since she has been on sertraline for anxiety, see plan under anxiety -Discussed recommendations for exercise at least 30 minutes moderate to vigorous exercise most days of the week. (minimum 150 minutes weekly) -Discussed importance of well-balanced diet. Assessment & Plan (10/21/2023 4:23 PM CDT): Wt Readings from Last 3 Encounters: 10/21/23 80.2 kg (176 lb 11.2 oz) 07/23/23 81.6 kg (179 lb 14.4 oz) 01/02/23 78.8 kg (173 lb 12.8 oz) Body mass index is 28.95 kg/m . - chronic, improved but not at goal -Discussed recommendations for exercise at least 30 minutes moderate to vigorous exercise most days of the week. (minimum 150 minutes weekly) -Discussed importance of well-balanced diet. Assessment & Plan (07/27/2023 9:49 AM STRAIGHT RULING MACHINE OPERATOR): Wt Readings from Last 3 Encounters: 07/23/23 81.6 kg (179 lb 14.4 oz) 01/02/23 78.8 kg (173 lb 12.8 oz) 12/07/20 72.1 kg (159 lb) Body mass index is 29.47 kg/m . -Discussed recommendations for exercise at least 30 minutes moderate to vigorous exercise most days of the week. (minimum 150 minutes weekly) -Discussed importance of well-balanced diet. Assessment & Plan (01/02/2023 12:49 PM CDT): Weight stable Continue healthy diet and exercise regimen, encouraged to increase activity to 30 minutes per day, 150 minutes per week to help maintain healthy weight and lifestyle Recommend flu vaccine every March, tetanus prophylaxis every 10 years, yearly eye exams, regular dental visits, and to follow-up with OBGYN as scheduled Resolved Problems Problem Noted Date Diagnosed Date Resolved Date Physical exam, pre-employment 01/02/2023 10/21/2023 Assessment & Plan (01/02/2023 1:35 PM CDT): Follow up in 6 months for annual wellness exam with pcp Fasting labs ordered- obtain 2 weeks prior to annual exam Patient appears healthy, well groomed, no apparent physical disability, vital signs good assessment as documented Patient stated that the TB criteria was not recommended for her in paperwork that she received from her employer Encounter for other administ rative examinations 01/02/2023 10/21/2023 Assessment & Plan (01/02/2023 1:34 PM CDT): Patient is a [place] [employer] [place]Patient states 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 CBC, coagulation studies, metabolic panel. Call back for results. Without current diarrhea will not order stool studies for now. Abdominal cramping 12/07/2020 Assessment & Plan (12/07/2020 12:05 PM CDT): Colonoscopy to rule out underlying inflammatory bowel disease or malignancy. Healthcare maintenance 01/01/201910/20 Assessment & Plan (12/07/2020 12:06 PM CDT): Will see her back in 6 months with a physical and fasting lab sooner if needed. Assessment & Plan (01/01/2019 3:04 PM CDT): Flu shot each March. Tetanus booster every 10 years. PPD today per her physical form requirements. Return on Friday for interpretation. UA with trace protein and small leukocyte esterase and has no urinary symptoms. Follow-up with her devops engineer as they direct. There are no contraindications to her working. Will see her back in 1 year for physical and fasting lab sooner if needed. Immunizations Immunization Administration Dates Next Due Influenza, Quadrivalent, Spl it, Preservative Free, Intramuscular 04/09/2023,05/13/2022,04/12/2021,03/24,03/29/2019 Influenza, Trivalent, Preser vative Free, Intramuscular 04/14/2024 Influenza, Unspecified 01/09/2024(Deferr ed: Patient Refused),12/07/2020(Deferred: Patient Refused),04/03/2018 Moderna SARS-CoV-2 Monovalen t Vaccination (12+ YRS) 07/29/2020,07/01/2020 PPD TEST 01/01/2019 Tdap 07/12/2021,12/07/2018,12/15/2015 Social History Tobacco Use Types Packs/Day Years Used Date Smoking Tobacco: Never Smokeless Tobacco: Never Tobacco Cessation:Counseling Given: Yes Alcohol Use Standard Drinks/Week Comments Yes 0 (1 standard drink = 0.6 oz pur e alcohol) AUDIT-C Answer Date Recorded Q1: How often do you have a drink containing alc ohol? 2-4 times a month 08/16/2024 Q2: How many drinks containi ng alcohol do you have on a typical day when you are drinking? 1 or 2 08/16/2024 Q3: How often do you have si x or more drinks on one occasion? Never 08/16/2024 PHQ-2 Answer Date Recorded PHQ-2 Total Score (If total score is 3 or more points, staff should administer the PHQ-9) 0 08/16/2024 Comments No Sex and Gender Information Value Date Recorded Sex Assigned at Not on file Legal Sex Female 4:08 AM STRAIGHT RULING MACHINE OPERATOR Gender Identity Not on file Sexual Orientation Not on file Last Filed Vital Signs Vital Sign Reading Time Taken Comments Blood Pressure 110/80 08/16/2024 3:11 PM STRAIGHT RULING MACHINE OPERATOR Pulse 86 08/16/2024 3:11 PM STRAIGHT RULING MACHINE OPERATOR Temperature 36.7 C (98 F) 08/16/2024 3:11 PM STRAIGHT RULING MACHINE OPERATOR Respiratory Rate 16 08/16/2024 3:11 PM STRAIGHT RULING MACHINE OPERATOR Oxygen Saturation 98% 08/16/2024 3:11 PM STRAIGHT RULING MACHINE OPERATOR Inhaled Oxygen Concentration - - Weight 86.6 kg (191 lb) 08/16/2024 3:11 PM STRAIGHT RULING MACHINE OPERATOR Height 166.4 cm (5' 5.51 ) 08/16/2024 3:11 PM CS T Body Mass Index 31.29 08/16/2024 3:11 PM STRAIGHT RULING MACHINE OPERATOR Plan of Treatment Not on file Procedures Procedure Name Priority Date/Time Associated Diagnosis Comments SCAN - LABS 07/26/2024 from Last 3 Months Results * SCAN - LABS (07/26/2024) us Provider Scanning Final Result from Last 3 Months Insurance CIGNA IBEW CIGNA Member Subscriber Plan / Payer (Ef fective 2019-Present) Name:Amy Soliz Relation to Subscriber:Spouse Name:JALIL SOLIZ Subscriber ID:Not on file Date of :1985 (Home) Address: [address] [place] [id number] Payer ID:[id number] ([facility]) Type:CIGNA HMO/PPO Address: [facility] [id number] [place] [id number] CIGNA IBEW CIGNA IBEW Care Teams Environmental Planning Engineer Relationship Specialty Start Date End Date William Smith MD [address] [place] [address] DR ONEIL A [facility] [address] [place] [address] PCP - General Family Medicine 07/23/23 Santos Ayala MD [address] [facility] [address] [facility] [address] [place] [address] Referring Physician Obstetrics and Gynecology 10/21/23
--- OUTSIDE RECORDS SUMMARY | 2024-09-09 15:31 | XMS_ITS | Clinical Summary ---
Author Organization [facility] Address [address] [place] [address] Phone Care Team Providers Care Floor Tiling Professional Name Role Phone SIDRA KIM DO Unavailable [phone] Reason for Visit and Chief Complaint The Chief Complaint is: Patient states she has a sore throat. It started over night. 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 Patient states her 3 year old son just had Strep aswell Problems Includes: Problems addressed during this encounter and other active Problems No Active Problems Plan of Treatment If symptoms worsen or do not improve call/return to office. - Last Documented On 03/31/2019 5:22PM ; [facility] Assessments Includes: Assessments from this encounter Findings - Acute pharyngitis [J02.9 - Acute pharyngitis unspecified] - Last Documented On 03/31/2019 5:22PM ; [facility] Medical Equipment - Implanted Devices Includes: Current Devices No Medical Equipment Recorded Medications Includes: Medications discussed during this encounter and other current Medications Current Medications (continue as prescribed) Zithromax Z-Cristopher 250 MG Oral Tablet 09/12/2022 Provider: TOMY VELEZ Diagnosis: Acute pharyngiti s, unspecified as directed Last Documented On 5:47PM By TOMY VELEZ ; [facility] Past Medications on file Azithromycin 250 MG Oral Tablet 07/20/2022 - 07/25/2022 Provider: LANETTE DEJESUS NP Diagnosis: Acute pharyngiti s, unspecified Take as directed (2 tabs day one, then once daily) Last Documented On 07/20/2022 12:35PM By LANETTE DEJESUS CHIEF OF STAFF ; [facility] Dicyclomine HCl 20 MG Oral Tablet 11/11/2020 - 11/15/2020 Provider: KWAN GARCIA Diagnosis: Diarrhea, unspec ified QID PRN for diarrhea/abdominal cramping Last Documented On 11/11/2020 2:12PM By Kwan LINARES ; [facility] Medications Administered Includes: Administered Medications from this encounter No Administered Medications Recorded Vital Signs Includes: Vital Signs from this encounter Vital Name 03/31/2019 05:01P Pulse Rate-Sitting (bpm) 65 Respiration Rate (breaths/min) 20 Temp-Oral (F) 98.3 Weight (lb) 163 Last Documented: On 03/31/2019 5:02PM ; [facility] Results Includes: Results discussed during this encounter Group A strep [facility] Ordered by MISSAEL GARCIA on 1 Collected: Reported: 03/31/2019 17:20 Last Documented On 1 1:50PM ; [facility] Reviewed on 11/11/2020; All test results are final unless otherwise noted. Rapid Strep NEGATIVE N (Normal) Last Documented On 9 5:20PM ; [facility] LOT # AND EXP. DATE Lot#: [id number] Exp: 07/28/2021 N (Normal) Last Documented On 9 5:20PM ; [facility] INT. QC ACCEPTABLE? YES N (Normal) Last Documented On 9 5:20PM ; [facility] History of Present Illness Includes: History of Present Illness from this encounter PATRICIO APONTE is a 28 year old female. - Allergy list reviewed - Medication list reviewed - Medication reconciliation performed - Feeling fine - Not feeling poorly (malaise) - No fever - No chills - No headache - Sore throat - No ear symptoms - No nasal discharge - No postnasal drip - No nasal passage blockage (stuffiness) - Not feeling congested in the chest - No cough - No vomiting - No diarrhea Sore throat x 1-2 days. Social History Description Last Updated Smoking status : Never smoker 03/31/2019 Last Documented On 9 5:22PM ; [facility] Procedures and Surgical History Includes: Procedures from this encounter Procedures Code Diagnosis Performing Provider Service L ocation Service Date education and instructions Last Documented On 9 5:15PM ; [facility] Pt to use prescription as ordered. Purpo se of and use of medication discussed.~ Last Documented On 9 5:15PM ; [facility] Discussed with family that c urrent strep testing is NEGATIVE. Pt /family with be notified if further testing reveals positive strep pharyngitis. Discussed with pt /family the etiology, natural course, possible complications, and treatment options for pharyngitis. Recommended OTC therapy with pain/fever control products, topical products (lozenges/sprays/gargles) as needed per serging machine operator's recommendation. Recommended for pt/ family to call/return [...] for signs/symptoms of illness Last Documented On 9 5:15PM ; [facility] patient to call if symptoms worsen or not improved in 3-5 days to update patient's status Last Documented On 9 5:15PM ; [facility] review of medications documented [id number] Last Documented On 9 5:01PM ; [facility] Clinical summary provided to patient Last Documented On 9 5:15PM ; [facility] Medical History Includes: Medical History addressed during this encounter No Medical History Recorded Family History Includes: Family History addressed during this encounter No Family History Recorded Review of Systems Includes: Review of Systems from this encounter Systemic: No fever. Head: No headache. Otolaryngeal: No earache and no nasal discharge. Sore throat. Pulmonary: No pulmonary symptoms. Gastrointestinal: No gastrointestinal symptoms. Skin: No skin symptoms. Mental Status Includes: Mental Status from this encounter No Mental Status Recorded Functional Status Includes: Functional Status from this encounter No Functional Status Recorded Physical Exam Includes: Physical Exam from this encounter Allergies Includes: Active Allergies Substance Type Reaction Onset Date Resolved Date Statu s Penicillin V Potassium Allergy 01/31/2016 Active Last Documented On 3 5:21PM ; [facility] Encounters Encounter Provider Location Date Check-In Time Check-Out Time Diagnosis WALK-IN CLINIC SICK VISIT MISSAEL LINARES-Bina [facility] 03/31/20 19 5:00PM 5:15PM Pharyngitis Acute Insurance Includes: Active Insurance Policies Plan Name Member ID Group # Subscriber Relationship Effect thang Dates - [id number] PAULA APONTE Clinical Notes Includes: Clinical Notes from this encounter No Clinical Notes Recorded
--- OUTSIDE RECORDS SUMMARY | 2024-09-09 15:31 | XMS_ITS | Clinical Summary ---
Author Organization [facility] A Address [address] [place] [address] Care Team Providers Care Injection Operator Name Role Phone William Smith MD Primary Care Provider Santos Ayala MD Unavailable [phone] Allergies Active Allergy Reactions Criticality Noted Date [...] 10/21/2023 Assessment & Plan (08/16/2024 3:36 PM ASPHALT ROLLER PERSON): - chronic conditon, well controlled but reports [...] 07/22/2023 Assessment & Plan (07/27/2023 9:58 AM ASPHALT ROLLER PERSON): -new diagnosis, not at/near goal -recent lab work shows significantly decreased vitamin-D level -patient denies any previous diagnosis of this -vitamin D3 prescription sent in [facility] 07/27/2023 Assessment & Plan (07/27/2023 10:11 AM ASPHALT ROLLER PERSON): -new complaint -onset x1 week -patient denies any particular trigger, but does state it seems to get worse throughout the day -meclizine prescribed Class 1 obesity due to exces s calories without serious comorbidity with body mass index (BMI) of 31.0 to 31.9 in adult 01/02/2023 Assessment & Plan (08/16/2024 3:38 PM ASPHALT ROLLER PERSON): Wt Readings from Last 3 Encounters: 08/16/24 [...] diet. 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 There are no contraindications to her working. Will see her back in 1 year for physical and fasting lab sooner if needed. Encounters Date Type Department Care Team Description 08/16/2024 3:00 PM ASPHALT ROLLER PERSON Office Visit [facility] Primary Care at [address] [place] [id number] William Smith MD Moderate episode of recurrent major depressive disorder (HCC) (Primary Dx); Class 1 obesity due to excess calories without serious comorbidity with body mass index (BMI) of 31.0 to 31.9 in adult; Vitamin D deficiency; Anemia, unspecified type; Encounter for hepatitis C screening test for low risk patient; Need for hepatitis B screening test 07/26/2024 Orders Only [facility] [place] [place] Health Information Management [address] [place] [address] Scanning, Provider from Last 3 Months Immunizations Immunization Administration Dates Next Due Influenza, Quadrivalent, Spl it, Preservative Free, Intramuscular 04/09/2023,05/13/2022,04/12/2021,03/24,03/29/2019 Influenza, Trivalent, Preser vative Free, Intramuscular 04/14/2024 Influenza, Unspecified 01/09/2024(Deferr ed: Patient Refused),12/07/2020(Deferred: Patient Refused),04/03/2018 Moderna SARS-CoV-2 Monovalen t Vaccination (12+ YRS) 07/29/2020,07/01/2020 PPD TEST 01/01/2019 Tdap 07/12/2021,12/07/2018,12/15/2015 Surgical History Surgery Date Site/Laterality Comments TONSILLECTOMY Tonsillectomy Medical History Medical History Date Comments Hx Other Medical Hx Other Medical c section Hx Other Medical depr ession Arrhythmia Family History Medical History Relation Name Comments Atrial fibrillation Father Hypertension Father Hypertension; Other Father impaired fastin g glucose; Other Mother Cancer, basal c ell; Relation Name Status Comments Father Mother Social History Tobacco Use Types Packs/Day Years [...] on file Legal Sex Female 4:08 AM ASPHALT ROLLER PERSON Gender Identity Not on file Sexual Orientation Not on file Obstetrics History Para Term AB IAB SAB Ectopic Multiple Livin g Live Births 1 Date Outcome GA Total Labor Labor/2nd/3rd Weight Sex Type Anes PTL Tona A1 A5 Name Clin Last Filed Vital Signs Vital Sign Reading Time Taken Comments Blood Pressure 110/80 08/16/2024 3:11 PM ASPHALT ROLLER PERSON Pulse 86 08/16/2024 3:11 PM ASPHALT ROLLER PERSON Temperature 36.7 C (98 F) 08/16/2024 3:11 PM ASPHALT ROLLER PERSON Respiratory Rate 16 08/16/2024 3:11 PM ASPHALT ROLLER PERSON Oxygen Saturation 98% 08/16/2024 3:11 PM ASPHALT ROLLER PERSON Inhaled Oxygen Concentration - - Weight 86.6 kg (191 lb) 08/16/2024 3:11 PM ASPHALT ROLLER PERSON Height 166.4 cm (5' 5.51 ) 08/16/2024 3:11 PM CS T Body Mass Index 31.29 08/16/2024 3:11 PM ASPHALT ROLLER PERSON Plan of Treatment Health Maintenance Due Date Last Done Comments Hepatitis C Screening 1988 Varicella Vaccines (1 of 2 - 13+ 2-dose series) 2001 Hepatitis B Screening 2006 Covid-19 Vaccine (2023- season) 2024 05/07/2021, 07/29/2020, 07/01/2020 Regular Well Visit/Exam 18-64 10/20/2024 10/21/2023, 01/01/2019 Depression Screening 08/16/2025 08/16/2024, 02/10/2024, 12/15/2023, Additional history exists Cervical Cancer Screening 07/15/2026 07/15/2023 DTaP/Tdap/Td Vaccine (4 - Td or Tdap) 07/12/2031 07/12/2021, 12/07/2018, 12/15/2015 Influenza Vaccine Completed 04/14/2024, , 05/13/2022, Additional history exists HPV Vaccines Aged Out No longer eligi ble based on patient's age to complete this topic Pneumococcal vaccine <65 Aged Out No longer eligible based on patient's age to complete this topic Procedures Procedure Name Priority Date/Time Associated Diagnosis Comments SCAN - LABS 07/26/2024 from Last 3 Months Results * SCAN - LABS (07/26/2024) Provider Scanning Final Result from Last 3 Months Insurance [facility] CIGAILIN Member Subscriber Plan / Payer (Ef fective 2019-Present) Name:CarterAmy wharton Relation to Subscriber:Spouse Name:JALIL SOLIZ Subscriber ID:Not on file Date of :1985 (Home) Address: [address] [place] [address] Payer ID:[id number] ([facility]) Type:CIGNA HMO/PPO Address: [facility] [id number] [place] [address] IGNACIO ARELLANO IGNACIO ARELLANO Care Teams Injection Operator Relationship Specialty Start Date End Date William Smith MD [address] [facility] [address] ONEIL A [address] [address] PCP - General Family Medicine 07/23/23 Santos Ayala MD [address] [facility] [address] [facility] [address] [place] [address] Referring Physician Obstetrics and Gynecology 10/21/23
--- OUTSIDE RECORDS SUMMARY | 2024-09-09 15:31 | XMS_ITS ---
Author Organization [facility] Address [address] [place] [address] Phone Care Team Providers Care Training And Development Officer Name Role Phone SIDRA KIM DO Unavailable [phone] Problems Includes: Active, inactive, and resolved Problems No Active Problems Plan of Treatment Findings Encounter Date Ordered [facility] as needed COVID SICK VISIT- ESTABLISHED PATIENT with TOMY GIBSON BUTTON TACKER-BC 09/12/2022 Last Documented On 3 5:44PM ; [facility] Ordered return to the clinic if condition worsens or new symptoms arise COVID SICK VISIT- ESTABLISHED PATIENT with TOMY Yajaira GIBSON BUTTON TACKER-BC 09/12/2022 Last Documented On 3 5:44PM ; [facility] Go to the emergency room if condition worsens COVID SICK VISIT- ESTABLISHED PATIENT with LANETTE S ANJELICA CHILD PSYCHIATRIST 07/20/2022 Last Documented On 3 12:27PM ; [facility] Ordered disposition Patient or transfusion aide was instructed in use of antipyretics. Also, the patient is to return if there is persistnece of fever for more than 48 hours, pain or other new significant symptoms COVID SICK VISIT- ESTABLISHED PATIENT with LANETTE S ANJELICA CHILD PSYCHIATRIST 07/20/2022 Last Documented On 3 12:27PM ; [facility] Continue current medication COVID SICK V ISIT- ESTABLISHED PATIENT with CHRISTINA RADFORD BUTTON TACKER-C 11/11/2020 Last Documented On 1 3:06PM ; [facility] The options include close observation CO VID SICK VISIT- ESTABLISHED PATIENT with CHRISTINA RADFORD BUTTON TACKER-C 11/11/2020 Last Documented On 1 3:06PM ; [facility] Continue current medication SICK VISIT with JOCELYNN RADFORD BUTTON TACKER-C 05/26/2020 Last Documented On 0 5:50PM ; [facility] The options include close observation SI CK VISIT with CHRISTINA RADFORD BUTTON TACKER-C 05/26/2020 Last Documented On 0 5:50PM ; [facility] Go to the emergency room if condition worsens WALK-IN CLINIC SICK VISIT with TOMY Gates [facility]- 12/09/2017 Last Documented On 8 12:20PM ; [facility] Ordered analgesics (non-ster oidal anti-inflammatory agents) WALK-IN CLINIC SICK VISIT with TOMY Yajaira [facility]- 12/09/2017 Last Documented On 8 12:20PM ; [facility] Ordered follow-up visit as n eeded with an office visit. WALK-IN CLINIC SICK VISIT with TOMY [facility]- 12/09/2017 Last Documented On 8 12:20PM ; [facility] Ordered home range of motion exercises W ALK-IN CLINIC SICK VISIT with TOMY [facility]- 12/09/2017 Last Documented On 8 12:20PM ; [facility] Ordered moist heat WALK-IN CLINIC SICK VISIT wit h TOMY [facility]- 12/09/2017 Last Documented On 8 12:20PM ; [facility] Ordered reduced physical activity WALK-I N CLINIC SICK VISIT with TOMY [facility]- 12/09/2017 Last Documented On 8 12:20PM ; [facility] Ordered referred to primary care physician WALK-IN CLINIC SICK VISIT with TOMY [facility]- 12/09/2017 Last Documented On 8 12:20PM ; [facility] Ordered return to the clinic if condition worsens or new symptoms arise WALK-IN CLINIC SICK VISIT with TOMY [facility]- 12/09/2017 Last Documented On 8 12:20PM ; [facility] Ordered Transition in care, clinical summary provided WALK-IN CLINIC SICK VISIT with TOMY GIBSON BUTTON TACKER-BC 12/09/2017 Last Documented On 8 12:20PM ; [facility] Ordered x-rays of the clavicle WALK-IN C LINIC SICK VISIT with TOMY GIBSON BUTTON TACKER-BC 12/09/2017 Last Documented On 8 12:20PM ; [facility] Instructions to patient Instructions for patient Last Documented On 3 5:40PM ; [facility] Go to the emergency room if condition worsens Last Documented On 3 12:19PM ; [facility] Go to the emergency room if condition worsens Last Documented On 8 12:19PM ; [facility] Watch for signs/symptoms of infection, return to the clinic if seen Last Documented On 6 2:57PM ; [facility] Assessments Includes: Assessments for all patient encounters Findings Encounter Date Acute upper respiratory infection COVID SICK VISIT- ESTABLISHED PATIENT with TOMY GIBSON BUTTON TACKER-BC 09/12/2022 Last Documented On 3 5:44PM ; [facility] Pharyngitis COVID SICK VISIT- ESTABLISHED JACOB TIEKITA with LANETTE DEJESUS NP 07/20/2022 Last Documented On 3 12:27PM ; [facility] Contact with and (Suspected) exposure to COVID-19 COVID SICK VISIT- ESTABLISHED PATIENT with CHRISTINA RADFORD BUTTON TACKER-C 11/11/2020 Last Documented On 1 3:06PM ; [facility] Upper respiratory infection [Acute upper respiratory infection, unspecified] SICK VISIT with CHRISTINA RADFORD BUTTON TACKER-C 05/26/2020 Last Documented On 0 5:50PM ; [facility] Acute pharyngitis WALK-IN CLINIC SICK VISIT with MISSAEL FERRARI BUTTON TACKER-C 03/31/2019 Last Documented On 9 5:22PM ; [facility] Lymphadenopathy PROBLEM VISIT with MISSAEL MURRIETA BUTTON TACKER-C 01/31/2016 Last Documented On 6 3:01PM ; [facility] Instructions Includes: Instructions for all patient encounters Instructions to patient Instructions for patient Last Documented On 3 5:40PM ; [facility] Go to the emergency room if condition worsens Last Documented On 3 12:19PM ; [facility] Go to the emergency room if condition worsens Last Documented On 8 12:19PM ; [facility] Watch for signs/symptoms of infection, return to the clinic if seen Last Documented On 6 2:57PM ; [facility] Medical Equipment - Implanted Devices Includes: Current and historical Devices No Medical Equipment Recorded Medications Includes: Current and historical Medications Current Medications (continue as prescribed) Zithromax Z-Cristopher 250 MG Oral Tablet 09/12/2022 Provider: TOMY VELEZ Diagnosis: Acute pharyngiti s, unspecified as directed Last Documented On 3 5:47PM By TOMY VELEZ ; [facility] Past Medications on file Azithromycin 250 MG Oral Tablet 07/20/2022 - 07/25/2022 Provider: LANETTE DEJESUS NP Diagnosis: Acute pharyngiti s, unspecified Take as directed (2 tabs day one, then once daily) Last Documented On 07/20/2022 12:35PM By LANETTE DEJESUS NP ; [facility] Dicyclomine HCl 20 MG Oral Tablet 11/11/2020 - 11/15/2020 Provider: CHRISTINA LINARES-C Diagnosis: Diarrhea, unspec ified QID PRN for diarrhea/abdominal cramping Last Documented On 11/11/2020 2:12PM By Christina LINARES ; [facility] Zoloft 50 MG Tablet 01/31/2016 - 12/09/2017 Provider: Diagnosis: TAKES ONCE DAILY Last Documented On 8 11:21AM By ELLIS SHETH ; [facility] Azithromycin 250 MG Tablet 01/31/2016 - 12/09/2017 Provider: MISSAEL FERRARI BUTTON TACKER-C Diagnosis: Generalized enla rged lymph nodes as directed take 2 tab po qd for 1 day then melanie 1 tab po qd for 4 days Last Documented On 8 11:21AM By ELLIS SHETH ; [facility] Medications Administered Includes: Administered Medications in patient's chart No Administered Medications Recorded Results Includes: Results from 09/10/2023 through 09/09/2024 No Results Recorded For Specified Dates History of Present Illness History of Present Illness not supported for this document type No History of Present Illness Recorded Social History Description Last Updated Tobacco non-user 07/20/2022 Last Documented On 3 12:27PM ; [facility] Current nonsmoker 11/11/2020 Last Documented On 1 3:06PM ; [facility] Smoking status : Never smoker 03/31/2019 Last Documented On 9 5:22PM ; [facility] Medical History Includes: Medical History in patient's chart Description Last Updated Not taking OTC medications 11/11/2020 Last Documented On 1 3:06PM ; [facility] No Contact with and (Suspected) exposure to COVID-19 11/11/2020 Last Documented On 1 3:06PM ; [facility] No fall 11/11/2020 Last Documented On 1 3:06PM ; [facility] No exposure to a contagious disease 05/16 Last Documented On 0 5:50PM ; [facility] No exposure to a viral disease 0 Last Documented On 0 5:50PM ; [facility] Family History Includes: Family History in patient's chart Description Last Updated Family history unchanged 09/12/2022 Last Documented On 3 5:44PM ; [facility] Review of Systems Review of Systems not supported for this document type No Review of Systems Recorded Mental Status Description Oriented to time, place, and person Functional Status No Functional Status Recorded Physical Exam Physical Exam not supported for this document type No Physical Exam Recorded Allergies Includes: Active, inactive, and resolved Allergies Substance Type Reaction Onset Date Resolved Date Statu s Penicillin V Potassium Allergy 01/31/2016 Active Last Documented On 3 5:21PM ; [facility] Insurance Includes: Active Insurance Policies Plan Name Member ID Group # Subscriber Relationship Effect thang Dates 1 - [employer]IG[employer] [id number] PAULA APONTE Clinical Notes Includes: Signed Clinical Notes starting from 07/05/2022 No Clinical Notes Recorded
== END 2024-09-09 14:40 | disposition home or self-care (01) ==
LOC: ANHLAB 14:41
PROVIDERS: PCP Family Medicine; Visit Provider Nurse Practitioner Obstetrics & Gynecology
DX: E04.9 Nontoxic goiter, unspecified (principal)
CPT/HCPCS: 36415; 84443

== ENCOUNTER 2024-09-13 15:48 | Outpatient (CLI) | payer OTHER, SELFPAY ==
--- NOTE | ~2024-09-13 | US_ITS ---
EXAMINATION: US thyroid DATE: 09/13/2024 15:59 INDICATION: Nontoxic goiter, unspecified. TECHNIQUE: Multiple ultrasound images of the thyroid were obtained. COMPARISON: None. FINDINGS: The right thyroid lobe measures 5.9 x 2.3 x 1.7 cm. The left thyroid lobe measures 5.6 x 2.3 x 1.7 c m. In the right thyroid lobe, there is a 1.8 cm solid, hypoechoic, wider than tall nodule with alondra h margin without echogenic foci (TI-RADS TR4). IMPRESSION: 1. Right thyroid nodule. Ultrasound-guided fine-needle aspiration is recommended. Reviewed, dictated and finalized at location A. IMPRESSION: 1. Right thyroid nodule. Ultrasound-guided fine-needle aspiration is recommende d.
== END 2024-09-13 15:49 | disposition home or self-care (01) ==
LOC: GOSHIMG 15:49
PROVIDERS: PCP Nurse Practitioner Obstetrics & Gynecology; Visit Provider Nurse Practitioner Obstetrics & Gynecology
DX: E04.9 Nontoxic goiter, unspecified (principal)
CPT/HCPCS: 76536

== ENCOUNTER 2024-10-06 13:11 | Outpatient (CLI) | payer OTHER, SELFPAY ==
--- NOTE | ~2024-10-06 | US_ITS ---
EXAMINATION: US FNA w image guidance DATE: 10/06/2024 13:47 INDICATION: Right thyroid nodule TECHNIQUE: A time-out was performed to verify the patient's name, date of , and procedure to be performed . The procedure and its benefits and risks were discussed with the patient. Risks specifically discus sed included bleeding and infection. The patient understood the risks and agreed to proceed. The neck was prepped and draped in the usual sterile manner. 3 mL 1% lidocaine was used for local anesthesia . 4 passes were made with a 25G needle into the lesion. Appropriate needle location was documented with continuous sonographic guidance. A sterile bandage was applied. There were no immediate compli cations. FINDINGS: Grayscale ultrasound images demonstrate biopsy needles advanced into the 1.8 cm very hypoechoic right thyroid nodule of concern. IMPRESSION: 1. Successful ultrasound-guided fine needle aspiration of the 1.8 cm right thyroid nodule of concern . Reviewed, dictated and finalized at location A. IMPRESSION: 1. Successful ultrasound-guided fine needle aspiration of the 1.8 cm right thy roid nodule of concern.
--- OUTSIDE RECORDS SUMMARY | 2024-10-06 14:50 | XMS_ITS | Clinical Summary ---
Author Organization [facility] A Address [address] [place] [address] Care Team Providers Care Vat Packer Name Role Phone William Smith MD Primary Care Provider Santos Ayala MD Unavailable [phone] Allergies Active Allergy Reactions Criticality Noted Date Comments Penicillins Rash Reaction: Rash, Medications buPROPion XL (WELLBUTRIN XL) 150 mg 24 hr tabletIndicatio ns:Moderate episode of recurrent major depressive disorder (HCC) Take 1 tablet (150 mg total) by mouth every morning 90 tablet 1 08/16/2024 6 Active sertraline (ZOLOFT) 50 mg tabletIndicatio ns:Moderate episode of recurrent major depressive disorder (HCC) Take 1 tablet (50 mg total) by mouth daily 90 tablet 1 08/16/2024 6 Active Active Problems Problem Noted Date Diagnosed Date [...] 10/21/2023 Assessment & Plan (08/16/2024 3:36 PM CREDIT OFFICER): - chronic conditon, well controlled but reports [...] 07/22/2023 Assessment & Plan (07/27/2023 9:58 AM CREDIT OFFICER): -new diagnosis, not at/near goal -recent lab work shows significantly decreased vitamin-D level -patient denies any previous diagnosis of this -vitamin D3 prescription sent in [facility] 07/27/2023 Assessment & Plan (07/27/2023 10:11 AM CREDIT OFFICER): -new complaint -onset x1 week -patient denies any particular trigger, but does state it seems to get worse throughout the day -meclizine prescribed Class 1 obesity due to exces s calories without serious comorbidity with body mass index (BMI) of 31.0 to 31.9 in adult 01/02/2023 Assessment & Plan (08/16/2024 3:38 PM CREDIT OFFICER): Wt Readings from Last 3 Encounters: 08/16/24 [...] diet. 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 There are no contraindications to her working. Will see her back in 1 year for physical and fasting lab sooner if needed. Encounters Date Type Department Care Team Description 08/16/2024 3:00 PM CREDIT OFFICER Office Visit [facility] Primary Care at [address] [place] [address] William Smith MD Moderate episode of recurrent major depressive disorder (HCC) (Primary Dx); Class 1 obesity due to excess calories without serious comorbidity with body mass index (BMI) of 31.0 to 31.9 in adult; Vitamin D deficiency; Anemia, unspecified type; Encounter for hepatitis C screening test for low risk patient; Need for hepatitis B screening test 07/26/2024 Orders Only [facility] Information Management [address] [place] [address] Scanning, Provider from Last 3 Months Immunizations [...] on file Legal Sex Female 4:08 AM CREDIT OFFICER Gender Identity Not on file Sexual Orientation Not on file Obstetrics History Para Term AB IAB SAB Ectopic Multiple Livin g Live Births 1 Date Outcome [place] Total Labor Labor/2nd/3rd Weight Sex Type Anes PTL Tona A1 A5 Name Clin Last Filed Vital Signs Vital Sign Reading Time Taken Comments Blood Pressure 110/80 08/16/2024 3:11 PM CREDIT OFFICER Pulse 86 08/16/2024 3:11 PM CREDIT OFFICER Temperature 36.7 C (98 F) 08/16/2024 3:11 PM CREDIT OFFICER Respiratory Rate 16 08/16/2024 3:11 PM CREDIT OFFICER Oxygen Saturation 98% 08/16/2024 3:11 PM CREDIT OFFICER Inhaled Oxygen Concentration - - Weight 86.6 kg (191 lb) 08/16/2024 3:11 PM CREDIT OFFICER Height 166.4 cm (5' 5.51 ) 08/16/2024 3:11 PM CS T Body Mass Index 31.29 08/16/2024 3:11 PM CREDIT OFFICER Plan of Treatment Health Maintenance Due Date Last Done Comments Hepatitis C Screening 1988 Varicella Vaccines (1 of 2 - 13+ 2-dose series) 2001 Hepatitis B Screening 2006 Covid-19 Vaccine ( season) 2024 05/07/2021, 07/29/2020, 07/01/2020 Regular Well [...] Final Result from Last 3 Months Insurance [facility] * Guarantor: Amy Soliz Account Type Relation to Patient Date of Phone Billing Address Personal/Family Self 1990 [address] [place] [place] [address] [employer] Member Subscriber Plan / Payer (Ef fective 2019-Present) Name:Amy Soliz Relation to Subscriber:Spouse Name:JALIL SOLIZ Subscriber ID:Not on file Date of :1985 (Home) Address: [address] [place] [address] Payer ID:[id number] ([facility]) Type:CIGNA HMO/PPO Address: [facility] [id number] [place] [address] CIGAILIN IBEW * Guarantor: Carterdio Amy Chantelle Account Type Relation to Patient Date of Phone Billing Address Personal/Family Self 1990 [address] [place] [address] CIGAILIN ARELLANO Care Teams Vat Packer Relationship Specialty Start Date End Date William Smith MD [address] [place] [address] DR ONEIL A [address] [address] PCP - General Family Medicine 07/23/23 Santos Ayala MD [address] [facility] [address] [place] [address] Referring Physician Obstetrics and Gynecology 10/21/23
--- OUTSIDE RECORDS SUMMARY | 2024-10-06 14:50 | XMS_ITS | Clinical Summary ---
Author Organization [facility] Address [address] [place] [address] Phone Care Team Providers Care Cheese Pancake Roller Name Role Phone SIDRA KIM DO Unavailable [phone] Reason for Visit and Chief [...] - Last Documented On 03/31/2019 5:22PM ; [facility] Assessments Includes: Assessments from this encounter Findings - Acute pharyngitis [J02.9 - Acute pharyngitis unspecified] - Last Documented On 03/31/2019 5:22PM ; [facility] Medical Equipment - Implanted Devices Includes: Current Devices No Medical Equipment Recorded Medications Includes: Medications discussed during this encounter and other current Medications Current Medications (continue as prescribed) Zithromax Z-Cristopher 250 MG Oral Tablet 09/12/2022 Provider: TOMY VELEZ Diagnosis: Acute pharyngiti s, unspecified as directed Last Documented On 5:47PM By TOMY VELEZ ; [facility] Past Medications on file Azithromycin 250 MG Oral Tablet 07/20/2022 - 07/25/2022 Provider: LANETTE DEJESUS NP Diagnosis: Acute pharyngiti s, unspecified Take as directed (2 tabs day one, then once daily) Last Documented On 07/20/2022 12:35PM By LANETTE DEJESUS FOOD SANITARIAN ; [facility] Dicyclomine HCl 20 MG Oral Tablet 11/11/2020 - 11/15/2020 Provider: KWAN GARCIA Diagnosis: Diarrhea, unspec ified QID PRN for diarrhea/abdominal cramping Last Documented On 11/11/2020 2:12PM By Kwan LINARES ; [facility] Medications Administered Includes: Administered Medications from this encounter No Administered Medications Recorded Vital Signs Includes: Vital Signs from this encounter Vital Name 03/31/2019 05:01P Pulse Rate-Sitting (bpm) 65 Respiration Rate (breaths/min) 20 Temp-Oral (F) 98.3 Weight (lb) 163 Last Documented: On 03/31/2019 5:02PM ; [facility] Results Includes: Results discussed during this encounter Group A strep [facility] Ordered by MISSAEL GARCIA on 1 Collected: Reported: 03/31/2019 17:20 Last Documented On 1 1:50PM ; [facility] Reviewed on 11/11/2020; All test results are final unless otherwise noted. Rapid Strep NEGATIVE N (Normal) Last Documented On 9 5:20PM ; [facility] LOT # AND EXP. DATE Lot#: [id number] Exp: 07/28/2021 N (Normal) Last Documented On 9 5:20PM ; [facility] INT. QC ACCEPTABLE? YES N (Normal) Last Documented On 9 5:20PM ; [facility] History of Present Illness Includes: History of [...] 03/31/2019 Last Documented On 9 5:22PM ; [facility] Procedures and Surgical History Includes: Procedures from this encounter Procedures Code Diagnosis Performing Provider Service L ocation Service Date education and instructions Last Documented On 9 5:15PM ; [facility] Pt to use prescription as ordered. Purpo se of and use of medication discussed.~ Last Documented On 9 5:15PM ; [facility] Discussed with family that c urrent strep testing is NEGATIVE. Pt /family with be notified if further testing reveals positive strep pharyngitis. Discussed with pt /family the etiology, natural course, possible complications, and treatment options for pharyngitis. Recommended OTC therapy with pain/fever control products, topical products (lozenges/sprays/gargles) as needed per cardiac rehabilitation program director's recommendation. Recommended for pt/ family to call/return [...] illness Last Documented On 9 5:15PM ; [facility] patient to call if symptoms worsen or not improved in 3-5 days to update patient's status Last Documented On 9 5:15PM ; [facility] review of medications documented 1160F Last Documented On 9 5:01PM ; [facility] Clinical summary provided to patient Last Documented On 9 5:15PM ; [facility] Medical History Includes: Medical History addressed during [...] Active Last Documented On 3 5:21PM ; [facility] Encounters Encounter Provider Location Date Check-In Time Check-Out Time Diagnosis WALK-IN CLINIC SICK VISIT MISSAEL LINARES-[facility] 03/31/20 19 5:00PM 5:15PM Pharyngitis Acute Insurance Includes: Active Insurance Policies Plan Name Member ID Group # Subscriber Relationship Effect thang Dates - [id number] PAULA APONTE Clinical Notes Includes: Clinical Notes from this encounter No Clinical Notes Recorded
--- OUTSIDE RECORDS SUMMARY | 2024-10-06 14:50 | XMS_ITS | Referral Summary ---
Author Organization [facility] Address [address] [place] [address] Care Team Providers Care Psychiatric Clinician Name Role Phone William Smith MD Primary Care Provider Santos Ayala MD Unavailable [phone] Encounters Date Type Department Care Team Description 08/16/2024 3:00 PM MINERAL TECHNOLOGIST Office Visit [facility] Primary Care at [address] [place] [address] William Smith MD Moderate episode of recurrent major depressive disorder (HCC) (Primary Dx); Class 1 obesity due to excess calories without serious comorbidity with body mass index (BMI) of 31.0 to 31.9 in adult; Vitamin D deficiency; Anemia, unspecified type; Encounter for hepatitis C screening test for low risk patient; Need for hepatitis B screening test 07/26/2024 Orders Only [facility] Health Information Management [address] [place] [id number] Scanning, Provider from Last 3 Months Allergies Active Allergy Reactions Criticality Noted Date Comments Penicillins Rash Reaction: Rash, Medications buPROPion XL (WELLBUTRIN XL) 150 mg 24 hr tabletIndicatio ns:Moderate episode of recurrent major depressive disorder (HCC) Take 1 tablet (150 mg total) by mouth every morning 90 tablet 1 08/16/2024 Active sertraline (ZOLOFT) 50 mg tabletIndicatio ns:Moderate episode of recurrent major depressive disorder (HCC) Take 1 tablet (50 mg total) by mouth daily 90 tablet 1 08/16/2024 Active Active Problems Problem Noted Date Diagnosed [...] 10/21/2023 Assessment & Plan (08/16/2024 3:36 PM MINERAL TECHNOLOGIST): - chronic conditon, well controlled but reports [...] 07/22/2023 Assessment & Plan (07/27/2023 9:58 AM MINERAL TECHNOLOGIST): -new diagnosis, not at/near goal -recent lab work shows significantly decreased vitamin-D level -patient denies any previous diagnosis of this -vitamin D3 prescription sent in [facility] 07/27/2023 Assessment & Plan (07/27/2023 10:11 AM MINERAL TECHNOLOGIST): -new complaint -onset x1 week -patient denies any particular trigger, but does state it seems to get worse throughout the day -meclizine prescribed Class 1 obesity due to exces s calories without serious comorbidity with body mass index (BMI) of 31.0 to 31.9 in adult 01/02/2023 Assessment & Plan (08/16/2024 3:38 PM MINERAL TECHNOLOGIST): Wt Readings from Last 3 Encounters: 08/16/24 [...] diet. 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 Follow-up with her senior report developer as they direct. There are no contraindications [...] on file Legal Sex Female 4:08 AM MINERAL TECHNOLOGIST Gender Identity Not on file Sexual Orientation Not on file Last Filed Vital Signs Vital Sign Reading Time Taken Comments Blood Pressure 110/80 08/16/2024 3:11 PM MINERAL TECHNOLOGIST Pulse 86 08/16/2024 3:11 PM MINERAL TECHNOLOGIST Temperature 36.7 C (98 F) 08/16/2024 3:11 PM MINERAL TECHNOLOGIST Respiratory Rate 16 08/16/2024 3:11 PM MINERAL TECHNOLOGIST Oxygen Saturation 98% 08/16/2024 3:11 PM MINERAL TECHNOLOGIST Inhaled Oxygen Concentration - - Weight 86.6 kg (191 lb) 08/16/2024 3:11 PM MINERAL TECHNOLOGIST Height 166.4 cm (5' 5.51 ) 08/16/2024 3:11 PM CS T Body Mass Index 31.29 08/16/2024 3:11 PM MINERAL TECHNOLOGIST Plan of Treatment Not on file Procedures Procedure Name Priority Date/Time Associated Diagnosis Comments SCAN - LABS 07/26/2024 from Last 3 Months Results * SCAN - LABS (07/26/2024) us Provider Scanning Final Result from Last 3 Months Insurance IGNACIO ARELLANO * Guarantor: Amy Soliz Account Type Relation to Patient Date of Phone Billing Address Personal/Family Self 1990 [address] [facility] [address] [employer] Member Subscriber Plan / Payer (Ef fective 2019-Present) Name:Amy Soliz Relation to Subscriber:Spouse Name:JALIL SOLIZ Subscriber ID:Not on file Date of :1985 (Home) Address: [address] [place] [address] Payer ID:[id number] ([facility]) Type:CIGNA HMO/PPO Address: [facility] [id number] [place] [id number] [employer] IBEW * Guarantor: Amy Soliz Account Type Relation to Patient Date of Phone Billing Address Personal/Family Self 1990 [address] [facility] [address] [employer] Care Teams Psychiatric Clinician Relationship Specialty Start Date End Date William Smith MD [address] [place] [address] [place] [facility] [address] [place] [address] PCP - General Family Medicine 07/23/23 Santos Ayala MD [address] [facility] [address] [facility] [address] [place] [address] Referring Physician Obstetrics and Gynecology 10/21/23
--- OUTSIDE RECORDS SUMMARY | 2024-10-06 14:50 | XMS_ITS | Clinical Summary ---
Author Organization [facility] Address [address] [place] [address] Phone Care Team Providers Care Wallboard Worker Name Role Phone SIDRA KIM DO Unavailable [phone] Reason for Visit and Chief Complaint The Chief Complaint is: Stomach pain, diarrhea, fatigue, sharp abdominal pain Problems Includes: Problems addressed during this encounter and other active Problems No Active Problems Plan of Treatment - The options include close observation - Last Documented On 11/11/2020 3:06PM ; [facility] - Continue current medication - Last Documented On 11/11/2020 3:06PM ; [facility] Rapid COVID testing performed today [...] - Last Documented On 11/11/2020 3:06PM ; [facility] Advised patient to monitor symptoms closely. Clear liquid today. Advance as tolerated. Go to ED with development of severe abdominal pain. - Last Documented On 11/11/2020 3:06PM ; [facility] Assessments Includes: Assessments from this encounter Findings - Contact with and (Suspected) exposure to COVID-19 [Contact with and (suspected) exposure to COVID-19] - Last Documented On 11/11/2020 3:06PM ; [facility] Medical Equipment - Implanted Devices Includes: Current Devices No Medical Equipment Recorded Medications Includes: Medications discussed during this encounter and other current Medications New / Renewed during this visit KWAN GARCIA on 11/11/2020 Dicyclomine HCl 20 MG Oral Tablet Provider: KWAN Curran 4 day supply: 12 tablet, 0 refills Diagnosis: Diarrhea, unspecified QID PRN for diarrhea/abdomin al cramping Pharmacy: [address], [phone] - Last Documented On 11/11/2020 2:12PM By Kwan LINARES ; [facility] Current Medications (continue as prescribed) Zithromax Z-Cristopher 250 MG Oral Tablet 09/12/2022 Provider: TOMY VELEZ Diagnosis: Acute pharyngiti s, unspecified as directed Last Documented On 5:47PM By TOMY VELEZ ; [facility] Past Medications on file Azithromycin 250 MG Oral Tablet 07/20/2022 - 07/25/2022 Provider: LANETTE DEJESUS NP Diagnosis: Acute pharyngiti s, unspecified Take as directed (2 tabs day one, then once daily) Last Documented On 07/20/2022 12:35PM By LANETTE DEJESUS NP ; [facility] Medications Administered Includes: Administered Medications from this encounter No Administered Medications Recorded Vital Signs Includes: Vital Signs from this encounter Vital Name 11/11/2020 01:38P Pulse Rate-Sitting (bpm) 114 Temp-Oral (F) 100.4 Oxygen Saturation (%) 98 Last Documented: On 11/11/2020 1:39PM ; [facility] Results Includes: Results discussed during this encounter Rapid COVID Test [facility] Ordered by KWAN GARCIA on 10/15 Collected: Reported: 11/11/2020 13:49 Last Documented On 1:50PM ; [facility] Reviewed on 11/11/2020; All test results are final unless otherwise noted. Rapid COVId NEG N (Normal) Last Documented On 1:49PM ; [facility] Int. QC Acceptable YES N (Normal) Last Documented On 1:49PM ; [facility] Lot # and Exp. Date [id number] 01/25/21 N (Normal) Last Documented On 1 1:49PM ; [facility] History of Present Illness [...] 11/11/2020 Last Documented On 1 3:06PM ; [facility] Smoking Status Unknown Procedures and Surgical History Includes: Procedures from this encounter Procedures Code Diagnosis Performing Provider Service L ocation Service Date Pt to use OTC fever/pain product as needed per product instruction.~ Last Documented On 1 2:05PM ; [facility] plan of care reviewed and agreed to Last Documented On 1 2:05PM ; [facility] patient to call if symptoms worsen or not improved to update patient's status as needed Last Documented On 1 2:05PM ; [facility] review of medications documented 1160F Last Documented On 1 1:39PM ; [facility] Medical History Includes: Medical History addressed during this encounter Description Last Updated Not taking OTC medications 11/11/2020 Last Documented On 1 3:06PM ; [facility] No Contact with and (Suspected) exposure to COVID-19 11/11/2020 Last Documented On 1 3:06PM ; [facility] No fall 11/11/2020 Last Documented On 1 3:06PM ; [facility] No exposure to a contagious disease 05/16 Last Documented On 1 1:38PM ; [facility] No exposure to a viral disease 0 Last Documented On 1 1:38PM ; [facility] Family History Includes: Family History [...] Active Last Documented On 3 5:21PM ; [facility] Encounters Encounter Provider Location Date Check-In Time Check-Out Time Diagnosis COVID SICK VISIT- ESTABLISHED PATIENT KWAN ARMASP-C [facility] 11/12/19 21 1:27PM 1:53PM Contact with and (Suspected) Exposure To Covid-19 Insurance Includes: Active Insurance Policies Plan Name Member ID Group # Subscriber Relationship Effect thang Dates - [id number] PAULA APONTE Clinical Notes Includes: Clinical Notes from this encounter No Clinical Notes Recorded
--- OUTSIDE RECORDS SUMMARY | 2024-10-06 14:50 | XMS_ITS | Clinical Summary ---
Author Organization [facility] Address [address] [place] [address] Phone Care Team Providers Care Starbucks Clerk Name Role Phone SIDRA KIM DO Unavailable [phone] Reason for Visit and Chief Complaint The Chief Complaint is: cough, SOB, fatigue, headache, symptoms x2 days Problems Includes: Problems addressed during this encounter and other active Problems No Active Problems Plan of Treatment - The options include close observation - Last Documented On 05/26/2020 5:50PM ; [facility] - Continue current medication - Last Documented On 05/26/2020 5:50PM ; [facility] Rapid COVID testing performed today and was negative. Patient advised that they may return to work/school when fever free for 24 hours and symptoms have improved. Call with development of additional or worsening symptoms. Go to ED with severe respiratory symptoms. - Last Documented On 05/26/2020 5:50PM ; [facility] Assessments Includes: Assessments from this encounter Findings - Upper respiratory infection [Acute upper respiratory infection, unspecified] - Last Documented On 05/26/2020 5:50PM ; [facility] Medical Equipment - Implanted Devices Includes: Current Devices No Medical Equipment Recorded Medications Includes: Medications discussed during this encounter and other current Medications Current Medications (continue as prescribed) Zithromax Z-Cristopher 250 MG Oral Tablet 09/12/2022 Provider: TOMY VELEZ Diagnosis: Acute pharyngiti s, unspecified as directed Last Documented On 5:47PM By TOMY VELEZ ; [facility] Medications Administered Includes: Administered Medications from this encounter No Administered Medications Recorded Vital Signs Includes: Vital Signs from this encounter Vital Name 05/26/2020 05:14P Pulse Rate-Sitting (bpm) 84 Temp-Oral (F) 98.9 Oxygen Saturation (%) 99 Last Documented: On 05/26/2020 5:15PM ; [facility] Results Includes: Results discussed during this encounter Rapid COVID Test [facility] Ordered by KWAN GARCIA on 05/16 Collected: Reported: 05/26/2020 17:45 Last Documented On 0 5:46PM ; [facility] Reviewed on 05/26/2020; All test results are final unless otherwise noted. Rapid COVId neg N (Normal) Last Documented On 0 5:45PM ; [facility] Int. QC Acceptable yes N (Normal) Last Documented On 0 5:45PM ; [facility] Lot # and Exp. Date [id number] 09/05/20 N (Normal) Last Documented On 0 5:45PM ; [facility] History of Present Illness Includes: History of [...] instruction.~ Last Documented On 0 5:46PM ; [facility] Pt to use OTC expectorant product as nee ded per product instruction.~ Last Documented On 0 5:46PM ; [facility] Pt to use OTC cough product as needed pe r product instruction.~ Last Documented On 0 5:46PM ; [facility] plan of care reviewed and agreed to Last Documented On 0 5:46PM ; [facility] patient to call if symptoms worsen or not improved to update patient's status as needed Last Documented On 0 5:46PM ; [facility] Medical History Includes: Medical History addressed during this encounter Description Last Updated Taking OTC medications 05/26/2020 Last Documented On 0 5:50PM ; [facility] No exposure to a contagious disease 05/16 Last Documented On 0 5:50PM ; [facility] No exposure to a viral disease 0 Last Documented On 0 5:50PM ; [facility] Family History Includes: Family History addressed during [...] Active Last Documented On 3 5:21PM ; [facility] Encounters Encounter Provider Location Date Check-In Time Check-Out Time Diagnosis SICK VISIT KWAN GARCIA [facility] 05/26/20 20 4:50PM 5:36PM Upper Respiratory Infection Insurance Includes: Active Insurance Policies Plan Name Member ID Group # Subscriber Relationship Effect thang Dates - [id number] PAULA APONTE Clinical Notes Includes: Clinical Notes from this encounter No Clinical Notes Recorded
--- OUTSIDE RECORDS SUMMARY | 2024-10-06 14:50 | XMS_ITS | Clinical Summary ---
Author Organization [facility] Address [address] [place] [address] Phone Care Team Providers Care Citrix Systems Administrator Name Role Phone SIDRA KIM DO Unavailable [phone] Reason for Visit and Chief Complaint The Chief Complaint is: Pt here today for c/o sore throat since yesterday Problems Includes: Problems addressed during this encounter and other active Problems No Active Problems Plan of Treatment - Go to the emergency room if condition worsens - Last Documented On 07/20/2022 12:27PM ; [facility] - Disposition Patient or liquor bridge operator helper was instructed in use of antipyretics. Also, the patient is to return if there is persistnece of fever for more than 48 hours, pain or other new significant symptoms - Last Documented On 07/20/2022 12:27PM ; [facility] Instructions to patient Go to the emergency room if condition worsens Last Documented On 12:19PM ; [facility] Assessments Includes: Assessments from this encounter Findings - [J02.9 - Acute pharyngitis, unspecified] Pharyngitis - Last Documented On 07/20/2022 12:27PM ; [facility] Instructions Includes: Instructions from this encounter Instructions to patient Go to the emergency room if condition worsens Last Documented On 12:19PM ; [facility] Medical Equipment - Implanted Devices Includes: Current Devices No Medical Equipment Recorded Medications Includes: Medications discussed during this encounter and other current Medications New / Renewed during this visit LANETTE DEJESUS NP on 07/20/2022 Azithromycin 250 MG Oral Tablet Provider: LANETTE S ANJELICA ASSOCIATE PROFESSOR OF LIBRARY MEDIA 5 day supply: 6 each, 0 refills Diagnosis: Acute pharyngitis, unspecified Take as directed (2 tabs day one, then once daily) Pharmacy: [address], [phone] - Last Documented On 07/20/2022 12:35PM By LANETTE DEJESUS ASSOCIATE PROFESSOR OF LIBRARY MEDIA ; [facility] Current Medications (continue as prescribed) Zithromax Z-Cristopher 250 MG Oral Tablet 09/12/2022 Provider: TOMY VELEZ Diagnosis: Acute pharyngiti s, unspecified as directed Last Documented On 3 5:47PM By TOMY VELEZ ; [facility] Past Medications on file Dicyclomine HCl 20 MG Oral Tablet 11/11/2020 - 11/15/2020 Provider: KWAN GARCIA Diagnosis: Diarrhea, unspec ified QID PRN for diarrhea/abdominal cramping Last Documented On 11/11/2020 2:12PM By Kwan LINARES ; [facility] Medications Administered Includes: Administered Medications from this encounter No Administered Medications Recorded Vital Signs Includes: Vital Signs from this encounter Vital Name 07/20/2022 11:53A Pulse Rate-Sitting (bpm) 80 Temp-Oral (F) 98.9 Weight (lb) 177 Oxygen Saturation (%) 100 Last Documented: On 07/20/2022 11:53A M ; [facility] Results Includes: Results discussed [...] 07/20/2022 Last Documented On 3 12:27PM ; [facility] Smoking Status Unknown Procedures and Surgical History Includes: Procedures from this encounter Procedures Code Diagnosis Performing Provider Service L ocation Service Date Discussed with pt /family the etiology, natural course, possible complications, and treatment options for pharyngitis. Recommended OTC therapy with pain/fever control products, topical products (lozenges/sprays/beto les) as needed per head golf coach's recommendation. Recommended for pt/ family to call/return [...] illness Last Documented On 3 12:26PM ; [facility] plan of care reviewed and agreed to Last Documented On 3 12:19PM ; [facility] plan of care reviewed and agreed to by t he patient Last Documented On 3 12:19PM ; [facility] patient to call if symptoms worsen or not improved to update patient's status as needed Last Documented On 3 12:19PM ; [facility] use of tobacco assessment performed 1000F Last Documented On 3 11:53AM ; [facility] Increase fluids Last Documented On 3 12:19PM ; [facility] Clinical summary provided to patient Last Documented On 3 12:19PM ; [facility] Medical History Includes: Medical History addressed during this encounter Description Last Updated Not taking OTC medications 11/11/2020 Last Documented On 3 11:52AM ; [facility] No Contact with and (Suspected) exposure to COVID-19 11/11/2020 Last Documented On 3 11:52AM ; [facility] No fall 11/11/2020 Last Documented On 3 11:52AM ; [facility] No exposure to a contagious disease 05/16 Last Documented On 3 11:52AM ; [facility] No exposure to a viral disease 0 Last Documented On 3 11:52AM ; [facility] Family History Includes: Family History addressed [...] Active Last Documented On 3 5:21PM ; [facility] Encounters Encounter Provider Location Date Check-In Time Check-Out Time Diagnosis COVID SICK VISIT- ESTABLISHED PATIENT LANETTE S ANJELICA FRIAS [facility] 07/20/19 23 11:48AM 12:27PM Pharyngitis Insurance Includes: Active Insurance Policies Plan Name Member ID Group # Subscriber Relationship Effect thang Dates - [facility] [id number] Clinical Notes Includes: Clinical Notes from this encounter * Progress note Date Encounter Last Documented by 07/20/2022 COVID SICK VISIT- ESTABLISHED PA EVANGELINANT Last documented on 07/20/2022; 12:27 PM, LANETTE DEJESUS NP; [facility] Active Problems & Conditions [...] products, topical products (lozenges/sprays/gargles) as needed per head golf coach's recommendation. Recommended for pt/ family to call/return [...] if condition worsens - Disposition Patient or liquor bridge operator helper was instructed in use of antipyretics. Also, the patient is to return if there is persistnece of fever for more than 48 hours, pain or other new significant symptoms Practice Management Use of tobacco assessment performed. Health Reminders - Assess Tobacco Use satisfied 07/20/2022.
--- OUTSIDE RECORDS SUMMARY | 2024-10-06 14:51 | XMS_ITS | Clinical Summary ---
Author Organization [facility] Address [address] [place] [address] Phone Care Team Providers Care Lamp Stack Developer Name Role Phone SIDRA KIM DO Unavailable [phone] Reason for Visit and Chief Complaint The Chief Complaint is: pt has a little cough, and sore throat for 2 days Problems Includes: Problems addressed during this encounter and other active Problems No Active Problems Plan of Treatment - Return to the clinic if condition worsens or new symptoms arise - Last Documented On 09/12/2022 5:44PM ; [facility] - Patient will call for appointment as needed - Last Documented On 09/12/2022 5:44PM ; [facility] Instructions to patient Instructions for patient Last Documented On 3 5:40PM ; [facility] Assessments Includes: Assessments from this encounter Findings - Acute upper respiratory infection - Last Documented On 09/12/2022 5:44PM ; [facility] Instructions Includes: Instructions from this encounter Instructions to patient Instructions for patient Last Documented On 3 5:40PM ; [facility] Medical Equipment - Implanted Devices Includes: Current Devices No Medical Equipment Recorded Medications Includes: Medications discussed during this encounter and other current Medications New / Renewed during this visit TOMY VELEZ on 09/12/2022 Zithromax Z-Cristopher 250 MG Oral Tablet Provider: TOMY VELEZ 5 day supply: 6 tablet, 0 refills Diagnosis: Acute pharyngitis, unspecified as directed Pharmacy: [facility] [address], [id number] - Last Documented On 5:47PM By TOMY LINARES-ANNABELLA ; [facility] Past Medications on file Azithromycin 250 MG Oral Tablet 07/20/2022 - 07/25/2022 Provider: LANETTE DEJESUS NP Diagnosis: Acute pharyngiti s, unspecified Take as directed (2 tabs day one, then once daily) Last Documented On 07/20/2022 12:35PM By LANETTE DEJESUS NP ; [facility] Dicyclomine HCl 20 MG Oral Tablet 11/11/2020 - 11/15/2020 Provider: KWAN GARCIA Diagnosis: Diarrhea, unspec ified QID PRN for diarrhea/abdominal cramping Last Documented On 11/11/2020 2:12PM By Kwan LINARES ; [facility] Medications Administered Includes: Administered Medications from this encounter No Administered Medications Recorded Vital Signs Includes: Vital Signs from this encounter Vital Name 09/12/2022 05:21P Blood Pressure Sitting (mmHg) 120/82 Pulse Rate-Sitting (bpm) 76 Temp-Oral (F) 98.3 Height (in) 65 Weight (lb) 177.2 Body Mass Index 29.5 Body Surface Area 1.9 Oxygen Saturation (%) 98 Last Documented: On 09/12/2022 5:21PM ; [facility] Results Includes: Results discussed during this [...] 07/20/2022 Last Documented On 3 5:21PM ; [facility] Current nonsmoker 11/11/2020 Last Documented On 3 5:21PM ; [facility] Smoking Status Unknown Procedures and Surgical History Includes: Procedures from this encounter Procedures Code Diagnosis Performing Provider Service L ocation Service Date plan of care reviewed and agreed to by the patient Last Documented On 3 5:40PM ; [facility] Patient verbalizes understanding Last Documented On 3 5:40PM ; [facility] Increase fluids Last Documented On 3 5:40PM ; [facility] Clinical summary provided to patient Last Documented On 3 5:40PM ; [facility] Medical History Includes: Medical History addressed during this encounter No Medical History Recorded Family History Includes: Family History addressed during this encounter Description Last Updated Family history unchanged 09/12/2022 Last Documented On 3 5:44PM ; [facility] Review of Systems Includes: Review of Systems [...] Active Last Documented On 3 5:21PM ; [facility] Encounters Encounter Provider Location Date Check-In Time Check-Out Time Diagnosis COVID SICK VISIT- ESTABLISHED PATIENT TOMY VELEZ [facility] 09/13/19 23 5:09PM 5:40PM Upper Respiratory Infection Acute Insurance Includes: Active Insurance Policies Plan Name Member ID Group # Subscriber Relationship Effect thang Dates 1 - [id number] PAULA APONTE Clinical Notes Includes: Clinical Notes from this encounter * Progress note Date Encounter Last Documented by 09/12/2022 COVID SICK VISIT- ESTABLISHED PA ANMOL Last documented on 09/12/2022; 5:44 PM, TOMY VELEZ; [facility] Active Problems & Conditions - No Active Problems Chief Complaint The Chief Complaint is: Pt has a little cough, and sore throat for 2 days. History of Present Illness MAAGLI APONTE is a 32 year old female. [...]
--- OUTSIDE RECORDS SUMMARY | 2024-10-06 14:51 | XMS_ITS ---
Care Plan - [facility] Created on: October 06, 2024 MAGALI APONTE : 1990 Sex: Female Author Organization [facility] Address [address] [place] [address] Phone Care Team Providers Care Staff Development Nurse Name Role Phone SIDRA KIM DO Unavailable [phone]
--- OUTSIDE RECORDS SUMMARY | 2024-10-06 14:51 | XMS_ITS ---
Author Organization [facility] Address [address] [place] [address] Phone Care Team Providers Care Trailer Chief Name Role Phone SIDRA KIM DO Unavailable [phone] Problems Includes: Active, inactive, and resolved Problems No Active Problems Plan of Treatment Findings Encounter Date Ordered patient will call [facility] appointment as needed COVID SICK VISIT- ESTABLISHED PATIENT with TOMY GIBSON ENGINE INSTALLER-BC 09/12/2022 Last Documented On 3 5:44PM ; [facility] Ordered return to the clinic if condition worsens or new symptoms arise COVID SICK VISIT- ESTABLISHED PATIENT with TOMY Yajaira GIBSON ENGINE INSTALLER-BC 09/12/2022 Last Documented On 3 5:44PM ; [facility] Go to the emergency room if condition worsens COVID SICK VISIT- ESTABLISHED PATIENT with LANETTE S ANJELICA DIRECTOR DIVERSITY 07/20/2022 Last Documented On 3 12:27PM ; [facility] Ordered disposition Patient or aircraft servicer was instructed in use of antipyretics. Also, the patient is to return if there is persistnece of fever for more than 48 hours, pain or other new significant symptoms COVID SICK VISIT- ESTABLISHED PATIENT with LANETTE S ANJELICA DIRECTOR DIVERSITY 07/20/2022 Last Documented On 3 12:27PM ; [facility] Continue current medication COVID SICK V ISIT- ESTABLISHED PATIENT with CHRISTINA RADFORD ENGINE INSTALLER-C 11/11/2020 Last Documented On 1 3:06PM ; [facility] The options include close observation CO VID SICK VISIT- ESTABLISHED PATIENT with CHRISTINA RADFORD ENGINE INSTALLER-C 11/11/2020 Last Documented On 1 3:06PM ; [facility] Continue current medication SICK VISIT with JOCELYNN RADFORD ENGINE INSTALLER-C 05/26/2020 Last Documented On 0 5:50PM ; [facility] The options include close observation SI CK VISIT with CHRISTINA RADFORD ENGINE INSTALLER-C 05/26/2020 Last Documented On 0 5:50PM ; [facility] Go to the emergency room if condition worsens WALK-IN CLINIC SICK VISIT with TOMY Gates [facility]- 12/09/2017 Last Documented On 8 12:20PM ; [facility] Ordered analgesics (non-ster oidal anti-inflammatory agents) WALK-IN CLINIC SICK VISIT with TOMY Yajaira [facility]- 12/09/2017 Last Documented On 8 12:20PM ; [facility] Ordered follow-up visit as n eeded with an office visit. WALK-IN CLINIC SICK VISIT with TOMY [facility]- 12/09/2017 Last Documented On 8 12:20PM ; [facility] Ordered home range of motion exercises W ALK-IN CLINIC SICK VISIT with TOMY [facility]- 12/09/2017 Last Documented On 8 12:20PM ; [facility] Ordered moist heat WALK-IN CLINIC SICK VISIT wit h TOMY [facility]- 12/09/2017 Last Documented On 8 12:20PM ; [facility] Ordered reduced physical activity WALK-I N CLINIC SICK VISIT with TOMY [facility]- 12/09/2017 Last Documented On 8 12:20PM ; [facility] Ordered referred to primary care physician WALK-IN CLINIC SICK VISIT with TOMY [facility]- 12/09/2017 Last Documented On 8 12:20PM ; [facility] Ordered return to the clinic if condition worsens or new symptoms arise WALK-IN CLINIC SICK VISIT with TOMY [facility]- 12/09/2017 Last Documented On 8 12:20PM ; [facility] Ordered Transition in care, clinical summary provided WALK-IN CLINIC SICK VISIT with TOMY GIBSON ENGINE INSTALLER-BC 12/09/2017 Last Documented On 8 12:20PM ; [facility] Ordered x-rays of the clavicle WALK-IN C LINIC SICK VISIT with TOMY GIBSON ENGINE INSTALLER-BC 12/09/2017 Last Documented On 8 12:20PM ; [facility] Instructions to patient Instructions for patient Last Documented On 3 5:40PM ; [facility] Go to the emergency room if condition worsens Last Documented On 3 12:19PM ; [facility] Go to the emergency room if condition worsens Last Documented On 8 12:19PM ; [facility] Watch for signs/symptoms of infection, return to the clinic if seen Last Documented On 6 2:57PM ; [facility] Assessments Includes: Assessments for all patient encounters Findings Encounter Date Acute upper respiratory infection COVID SICK VISIT- ESTABLISHED PATIENT with TOMY GIBSON ENGINE INSTALLER-BC 09/12/2022 Last Documented On 3 5:44PM ; [facility] Pharyngitis COVID SICK VISIT- ESTABLISHED JACOB TIEKITA with LANETTE DEJESUS NP 07/20/2022 Last Documented On 3 12:27PM ; [facility] Contact with and (Suspected) exposure to COVID-19 COVID SICK VISIT- ESTABLISHED PATIENT with CHRISTINA RADFORD ENGINE INSTALLER-C 11/11/2020 Last Documented On 1 3:06PM ; [facility] Upper respiratory infection [Acute upper respiratory infection, unspecified] SICK VISIT with CHRISTINA RADFORD ENGINE INSTALLER-C 05/26/2020 Last Documented On 0 5:50PM ; [facility] Acute pharyngitis WALK-IN CLINIC SICK VISIT with MISSAEL FERRARI ENGINE INSTALLER-C 03/31/2019 Last Documented On 9 5:22PM ; [facility] Lymphadenopathy PROBLEM VISIT with MISSAEL MURRIETA ENGINE INSTALLER-C 01/31/2016 Last Documented On 6 3:01PM ; [facility] Instructions Includes: Instructions for all patient encounters Instructions to patient Instructions for patient Last Documented On 3 5:40PM ; [facility] Go to the emergency room if condition worsens Last Documented On 3 12:19PM ; [facility] Go to the emergency room if condition worsens Last Documented On 8 12:19PM ; [facility] Watch for signs/symptoms of infection, return to the clinic if seen Last Documented On 6 2:57PM ; [facility] Medical Equipment - Implanted Devices Includes: Current and historical Devices No Medical Equipment Recorded Medications Includes: Current and historical Medications Current Medications (continue as prescribed) Zithromax Z-Cristopher 250 MG Oral Tablet 09/12/2022 Provider: TOMY VELEZ Diagnosis: Acute pharyngiti s, unspecified as directed Last Documented On 3 5:47PM By TOMY VELEZ ; [facility] Past Medications on file Azithromycin 250 MG Oral Tablet 07/20/2022 - 07/25/2022 Provider: LANETTE DEJESUS NP Diagnosis: Acute pharyngiti s, unspecified Take as directed (2 tabs day one, then once daily) Last Documented On 07/20/2022 12:35PM By LANETTE DEJESUS NP ; [facility] Dicyclomine HCl 20 MG Oral Tablet 11/11/2020 - 11/15/2020 Provider: CHRISTINA LINARES-C Diagnosis: Diarrhea, unspec ified QID PRN for diarrhea/abdominal cramping Last Documented On 11/11/2020 2:12PM By Christina LINARES ; [facility] Zoloft 50 MG Tablet 01/31/2016 - 12/09/2017 Provider: Diagnosis: TAKES ONCE DAILY Last Documented On 8 11:21AM By ELLIS SHETH ; [facility] Azithromycin 250 MG Tablet 01/31/2016 - 12/09/2017 Provider: MISSAEL FERRARI ENGINE INSTALLER-C Diagnosis: Generalized enla rged lymph nodes as directed take 2 tab po qd for 1 day then melanie 1 tab po qd for 4 days Last Documented On 8 11:21AM By ELLIS SHETH ; [facility] Medications Administered Includes: Administered Medications in patient's chart No Administered Medications Recorded Results Includes: Results from 10/07/2023 through 10/06/2024 No Results Recorded For Specified Dates History of Present Illness History of Present Illness not supported for this document type No History of Present Illness Recorded Social History Description Last Updated Tobacco non-user 07/20/2022 Last Documented On 3 12:27PM ; [facility] Current nonsmoker 11/11/2020 Last Documented On 1 3:06PM ; [facility] Smoking status : Never smoker 03/31/2019 Last Documented On 9 5:22PM ; [facility] Medical History Includes: Medical History in patient's chart Description Last Updated Not taking OTC medications 11/11/2020 Last Documented On 1 3:06PM ; [facility] No Contact with and (Suspected) exposure to COVID-19 11/11/2020 Last Documented On 1 3:06PM ; [facility] No fall 11/11/2020 Last Documented On 1 3:06PM ; [facility] No exposure to a contagious disease 05/16 Last Documented On 0 5:50PM ; [facility] No exposure to a viral disease 0 Last Documented On 0 5:50PM ; [facility] Family History Includes: Family History in patient's chart Description Last Updated Family history unchanged 09/12/2022 Last Documented On 3 5:44PM ; [facility] Review of Systems Review of Systems not [...] Active Last Documented On 3 5:21PM ; [facility] Insurance Includes: Active Insurance Policies Plan Name Member ID Group # Subscriber Relationship Effect thang Dates 1 - [employer] [id number] PAULA APONTE Clinical Notes Includes: Signed Clinical Notes starting from 07/05/2022 No Clinical Notes Recorded
--- OUTSIDE RECORDS SUMMARY | 2024-10-06 14:51 | XMS_ITS | Clinical Summary ---
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 Gender Identity Not on file Sexual Orientation Not on file Plan of Treatment Health Maintenance Due Date Last Done Comments HEPATITIS B VACCINES (1 of 3 - 19+ 3-dose series) 08/23/2007 HPV/Cotest (21-29) 2009 CERVICAL CANCER SCREENING 2018 HPV/Cotest (30-65) 2018 PAP SMEAR 2018 INFLUENZA VACCINE (#1) 2024 , 03/29/2019 COVID-19 Vaccine (2023- season) 2024 07/29/2020, 07/01/2020 DTAP/TDAP/TD VACCINES (3 - Td or Tdap) 12/07/2028 12/07/2018, 12/15/2015 HPV VACCINES Aged Out No longer eligi ble based on patient's age to complete this topic Insurance * Guarantor: Amy Aponte Account Type Relation to Patient Date of Phone Billing Address Personal/Family Self 1990 [address] [place] [address] [employer]NACIO SHERIDANEW Member Subscriber Plan / Payer (Ef fective 2016-Present) Name:Amy Aponte Relation to Subscriber:Spouse Name:JALIL APONTE Date of :1983 (Home) Address: [address] [place] [address] Payer ID:Not on file Type:HMO Address: [facility] [id number] [place] [address]
== END 2024-10-06 13:12 | disposition home or self-care (01) ==
PROVIDERS: PCP Nurse Practitioner Obstetrics & Gynecology; Visit Provider Otolaryngology
DX: D34 Benign neoplasm of thyroid gland (principal); E04.1 Nontoxic single thyroid nodule
CPT/HCPCS: 10005; 88172; 88173; 88305

== ENCOUNTER 2024-11-29 01:09 | Day surgery (SDC) | payer OTHER, SELFPAY ==
[2024-11-24 08:56] VITALS: BMI 28.6
--- NOTE | 2024-11-24 09:02 | PC.NURSE ---
Report to the Outpatient Waiting Room, entrance under the green pavilion located off [facility], at time _0830__ on date _11/29/24_. Planned Procedure Time: _1030_.? Time changes happen often and if your time is changed the preop area will call you the afternoon before. - You and your visitor will be asked to self-screen and do not enter if you have any COVID symptoms. Please call surgeon if you need to reschedule. - A mask is optional within the hospital at this time. Patients may have clear liquids (water, carbonated beverages, clear teas, apple juice) until 3 hours prior to surgery with a maximum of 20 ounces. - No food from midnight until time of surgery and no smoking, or chewing tobacco (or any form of nicotine). No chewing gum, candy or mints. - Infants may have breast milk until 4 hours before surgery, infant formula 6 hours prior to surgery. - Children will be allowed to drink immediately following surgery.? If applicable, please bring a bottle or sippy cup to assist with drinking. Juice, water, soda, and popsicles are readily available.? For infants on formula, please bring formula the day of surgery.? Pacifiers are allowed. Take only the following medications with a SIP of water on the morning of surgery: NONE DO NOT STOP ANY OF YOUR OTHER PRESCRIPTION MEDICATIONS PRIOR TO SURGERY EXCEPT THE FOLLOWING Hold all vitamins and supplements for 3 days per anesthesiologist. Medications to discontinue per physician Date to take last dose Please no make-up, nail [place], hairspray, perfume, deodorant, or body powder the day of surgery.? No jewelry (including any body piercings) or valuables the day of surgery, leave them at home.? Please take a shower or bath the night before, or the morning of, surgery with an antibacterial soap.? Wear comfortable, loose fitting clothing.? Children are encouraged to wear pajamas. - Jewelry must be removed prior to entering the operating room.? Rings and piercings that are not removed may be cut off. - The hospital will not accept responsibility for valuables.? - Please leave all valuables, including medications, at home the day of surgery. If you are going home after surgery, a licensed delivery driver assistant must drive you home.? - NO public transportation without another adult if you receive anesthesia. - We recommend that an adult stay with you for 24 hours following discharge. - We also recommend that you do not drive, make important decision, drink alcoholic beverages, or take any drugs that were not prescribed by your health care provider for at least 24 hours after your discharge time. For Pediatric surgeries, we recommend two adults accompany the child home. Follow any additional instructions given to you from your surgeon. Telephone instructions given to __PATIENT__and asked if any additional questions and then verbalized understanding. Patient advised to call surgeon office or pre surgery nurse liaison [phone] if any additional questions.
[2024-11-29] VITALS (11 sets, daily range): BP systolic 103–123; BP diastolic 62–76; PULSE 58–74; RESP 12–18; TEMP 36.2–37.1; O2SAT 93–100; BMI 29.5
--- OUTSIDE RECORDS SUMMARY | 2024-11-29 01:12 | XMS_ITS | Encounter Summary ---
Author Organization [facility] Address [address] [place] [address] Phone Care Team Providers Care Sorting Machine Attendant Name Role Phone Santos Ayala MD Unavailable [phone] Chester Sanchez MD Unavailable [phone] William Smith MD Primary Care Provider Reason for Visit * Reason Onset Date Comments Scheduling Appointments 11/02/2024 Encounter Details Date Type Department Care Team (Late st Contact Info) Description 11/02/2024 Telephone [facility] [address] [place] [address] Esmer Herrera Scheduling Appointments Social History Tobacco Use Types Packs/Day Years Used Date Smoking Tobacco: Never Smokeless Tobacco: Never Alcohol Use Standard Drinks/Week Comments Yes 0 [...] on file Legal Sex Female 4:08 AM [employer] Gender Identity Not on file Sexual Orientation Not on file documented as of this encounter Miscellaneous Notes * Telephone Encounter - Josseline Chau RN - 11/02/2024 11:34 AM CDT Referral reviewed, pt ready for scheduling. Josseline Chau RN Clinical Nurse Coordinator to Dr. Jalil Rehman and Dr. Esmer Herrera [facility] Department of Surgery - Division of Surgical Oncology * Telephone Encounter - Amina Lindo - 11/02/2024 8:38 AM CDT Patient Query: Was an attempt to transfer to the assigned clinical staff or backline? No. Reason for call?: Amy called in asking the progress with her referral. She would like a call back when her referral is approved. Who is the caller: Amy. What is the best number for them to contact for a call back: [phone] Last office visit: Visit date not found Date of Surgery: No surgery found documented in this encounter Plan of Treatment Not on file documented as of this encounter Visit Diagnoses Not on filedocumented in this encounter Care Teams Sorting Machine Attendant Relationship Specialty Start Date End Date William Smith MD [address] [facility] [address] [place] [address] PCP - General Family Medicine 10/27/24 Santos Ayala MD [address] [facility] [address] [place] [address] Referring Physician Obstetrics and Gynecology 10/21/23 Chester Sanchez MD [facility] [place] [address] Otolaryngology 10/27/24 documented as of this encounter
--- OUTSIDE RECORDS SUMMARY | 2024-11-29 01:12 | XMS_ITS | Patient Health Record ---
Author Organization [facility] Address [address] [place] [address] Care Team Providers Care Solution Manager Name Role Phone [facility] Unavailable [phone] MIRIAM TAY Unavailable [phone] Allergies Allergen (clinical drug ingredient) Drug/Non Drug Allergy documented on EMR Reaction Allergy Type Onset Date Status Penicillin rash Drug Allergy Active Reason For Referral No Information Medications Medication SIG (Take, Route, Fr equency, Duration) Notes Start Date End Date Status Ibuprofen 400 MG 1 tablet with food o r milk as needed Orally Three times a day for 10 days 11/22/2024 Active Clindamycin HCl 300 MG 1 capsule Orally every 12 hrs for 7 days 09/30/2024 Active Benzonatate 200 MG 1 capsule as needed Orally Three times a day for 10 days 11/22/2024 Ac tive Zithromax Z-Cristopher 250 MG Two tablets one d ay on then one tablet daily Orally once a day for 5 days 11/22/2024 Active Social History Tobacco Use: Social History Observation Description Date Details (start date - stop date) Never Smoker NA - NA Tobacco Control (Standard) Question Answer Notes Tobacco use: Nonsmoker Vital Signs Height 65 in 11/22/2024 Patient Reported Normal Blood Pressure Patient Reported High Temperature Weight 180 lbs 11/22/2024 Patient Reported Normal Blood Pressure Patient Reported High Temperature BMI 29.95 kg/m2 11/22/2024 Patient Reported Normal Blood Pressure Patient Reported High Temperature Encounters Encounter Location Date Provider Diagnosis [facility] [address] [place] [address] 09/30/2024 MIRIAM TAY Sore throat J02.9 [facility] [address] [place] [address] 11/22/2024 MIRIAM TAY Acute upper respiratory infection, unspecified J06.9 Assessments Encounter Date Diagnosis (ICD Code) Assessment Notes Treatment Notes Treatment Clinical Notes Section Notes 09/30/2024 Sore throat (ICD-10 - J02.9) TREATMENT PLAN Patient appears to have symptoms most consistent with nasopharyngitis. The most likely etiology for initial trigger is viral or allergic. The duration of symptoms and progression of symptoms are what may trigger us to treat with antibiotics and oral steroids instead of anti-allergy and nasal steroids. A high CENTOR score may also trigger us to use antibiotics (younger age, pharyngeal exudate, lymph node pain in neck, fever, NO cough). 1. If symptoms present for < 5 days, make sure covid and flu are negative by obtaining those tests. If positive, we can discuss paxlovid or tamiflu if indicated. Highly consider a rapid strep test as well prior to any antibiotics. 2. Flonase 2 puffs per nostril once daily if you have a runny nose (this will relieve postnasal drip, runny nose, and a cough associated with that) (if not allergic). 3. Taking antibiotics for a viral infection or allergies is not recommended. Antibiotics are medications that fight infections caused by bacteria; but Flu, COVID, and other common infections are caused by viruses. Taking antibiotics when you actually have a viral infection does more harm than good. If you take an antibiotic when you have a viral infection, the antibiotic attacks bacteria in your body- bacteria that are either beneficial or at least not causing disease. This misdirected treatment can then promote antibiotic-resista nt properties in harmless bacteria that can be shared with other bacteria or create an opportunity for potentially harmful bacteria to replace harmless ones. This can result in untoward effects of gastrointestinal issues (diarrhea, bloating, discomfort), or worsening of symptoms due to overgrowth of harmful bacteria (pneumonia). We understand your symptoms may transform and change. Therefor, if there is no improvement in current symptoms at all in 7-10 days, you can consider antibiotic therapy but we will leave this decision to you. Consider this if you continue to have fevers >100.4F or have no improvement in symptoms at all. 4. Over the counter cepachol or chloraseptic for sore throat (if not allergic). 5. Ibuprofen 400-800mg every 8 hours for pain, inflammation, aches (if not allergic). 6. Benzonatate every 8 hours or bromfed liquid as needed if cough present. We can send this if requested although over the counter cough medications will also help similarly. 7. We can offer a short course of steroids to help relieve congestion, drainage, and inflammatory symptoms if we feel you meet the indication and do not have an overt bacterial infection. This will particularly help if you are having a hoarse voice due to laryngeal inflammation. Remember that if you are having sneezing, runny nose, watery eyes, headache, nasal congestion, you may have an allergic component and zyrtec, xyzal, claritin, or cal may greatly benefit you (if not allergic). Female patients only note: Some antibiotics and other medications can reduce control effectiveness. Check with your pharmacist and consider using extra protection to prevent .PATIENT EDUCATION: SORE THROAT Infection by bacteria or a virus causes most sore throats. Cigarette smoke, dry air, air pollution, allergies, and yelling can also cause a sore throat. Sore throats can be painful and annoying. Fortunately, most sore throats go away on their own. If you have a bacterial infection, your doctor may prescribe antibiotics. Follow-up care is a mathias part of your treatment and safety. Be sure to make and go to all appointments, and call your doctor if you are having problems. It's also a good idea to know your test results and keep a list of the medicines you take. How can you care for yourself at home? If your doctor prescribed antibiotics, take them as directed. Do not stop taking them just because you feel better. You need to take the full course of antibiotics. Gargle with warm salt water several times a day to help reduce swelling and relieve pain. Mix 1/2 teaspoon of salt in 1 cup of warm water. Take an xiiu-kpz-yhbwhax pain medicine, such as acetaminophen (Tylenol), ibuprofen (Advil, Motrin), or naproxen (Aleve). Read and follow all instructions on the label. Be careful when taking jopq-pwf-fwelaih cold or flu medicines and Tylenol at the same time. Many of these medicines have acetaminophen, which is Tylenol. Read the labels to make sure that you are not taking more than the recommended dose. Too much acetaminophen (Tylenol) can be harmful. Drink plenty of fluids. Fluids may help soothe an irritated throat. Hot fluids, such as tea or soup, may help decrease throat pain. Use ivwj-fpu-umfhxfs throat lozenges to soothe pain. Regular cough drops or hard candy may also help. These should not be given to young children because of the risk of choking. Do not smoke or allow others to smoke around you. If you need help quitting, talk to your doctor about stop-smoking programs and medicines. These can increase your chances of quitting for good. Use a vaporizer or humidifier to add moisture to your bedroom. Follow the directions for cleaning the machine. When should you call for help? Call your doctor now or seek immediate medical care if: You have trouble breathing. Your sore throat gets much worse on one side. You have new or worse trouble swallowing. You have a new or higher fever.FIRST ASYNCHRONOUS ACUTE CARE VISIT Acute Care Visit: All subsequent visits for your concern addressed today must be conducted via video consultation. Further Management: If your symptoms do not improve, consider scheduling a follow-up video visit for further assessment, or an in-person visit for a more comprehensive evaluation. 11/22/2024 Acute upper respiratory infection, unspecified (ICD-10 - J06.9) TREATMENT PLAN: VIRAL UPPER RESPIRATORY INFECTION Patient presents with URI symptoms which are most likely viral. There is no component of the clinical history supporting bacterial infection. This is a lower risk patient with typical mild symptoms. 1. Make sure to rule out flu/covid. We recommend that you complete the COVID-19 test ordered today. You may choose to have it conducted at a laboratory, or alternatively, you can purchase an at-home Lucira COVID-19 test from your local pharmacy instead of the lab test. If covid/flu positive, will consider paxlovid or tamiflu if you are a candidate. 2. CAUTIONTakin g antibiotics for a viral infection or allergies is not recommended. Antibiotics are medications that fight infections caused by bacteria; but Flu, COVID, and other common infections are caused by viruses. Taking antibiotics when you actually have a viral infection does more harm than good. If you take an antibiotic when you have a viral infection, the antibiotic attacks bacteria in your body- bacteria that are either beneficial or at least not causing disease. This misdirected treatment can then promote antibiotic-resista nt properties in harmless bacteria that can be shared with other bacteria or create an opportunity for potentially harmful bacteria to replace harmless ones. This can result in untoward effects of gastrointestinal issues (diarrhea, bloating, discomfort), or worsening of symptoms due to overgrowth of harmful bacteria (pneumonia). We understand your symptoms may transform and change. Therefor, if there is no improvement in current symptoms at all in 3-5 days, you can consider antibiotic therapy but we will leave this decision to you. Consider this if you continue to have fevers >100.4F or have no improvement in symptoms at all. 3. Ibuprofen 400-800mg every 8 hours for pain, fever, chills, body aches (if not allergic) 4. Can offer benzonatate 200mg every 8 hours or bromfed liquid for cough but the efficacy is similar to over the counter cough medicine. 5. Can use over the counter cold/flu medicines for relief. Can use flonase 2 puffs per nostril as nasal steroid for inflammation relief, especially if there is postnasal drip or runny nose. Cepachol or chloraseptic for sore throat. Can also use honey. (if not allergic) 6. If desired, can send albuterol inhaler 2 puffs as needed every 6 hours for shortness of breath or wheezing to help open up airways. 7. I generally recommend avoiding treating viral infections with steroids in the acute phase (~<7 days) to allow the natural immune system to build an appropriate response. Recommended follow up in 3 days. Female patients only note: Some antibiotics and other medications can reduce control effectiveness. Check with your pharmacist and consider using extra protection to prevent . If there's any chance of , take a test first, as some medications may cause harm. All medications can affect .PATIENT EDUCATION: UPPER RESPIRATORY INFECTION (URI) A URI is an infection of the nose, sinuses, or throat, often caused by viruses like the common cold or flu. Antibiotics don't help viral infections. Most get better in 4-10 days with home care. At Home Care: Drink plenty of fluids (water or clear liquids). If you have heart, kidney, or liver issues, check with your doctor first. Take ujts-rca-auzlmom pain medicine like acetaminophen (Tylenol), ibuprofen, or naproxen as directed. Avoid aspirin under age 20. Be cautious not to take too much acetaminophen by checking labels on cold/flu medicines. Get plenty of rest. Use saline nasal sprays or rinses to clear your nose. Use a humidifier or vaporizer to moisten the air. Avoid smoking and smoky areas. Ask your doctor for quitting help if needed. 09/30/2024 Other Follow the treatment plan as indicated by the provider. Take any medications as prescribed. If you have any questions about your prescription, ask the pharmacist. This treatment plan is based on the information you have provided to us today. Incomplete disclosure of your medical history, past treatments, or current medications may affect the effectiveness of this treatment. Call 911 anytime you think you may need emergency care. For example, call if:You have severe trouble breathing.You have a seizure.Call your doctor now or seek immediate medical care if:You have trouble breathing.You have a fever with a stiff neck or a severe headache.You have pain or pressure in your chest or belly.You have a fever or cough that returns after getting better.You feel very sleepy, dizzy, or confused.You are not urinating.You have severe muscle pain.You have severe weakness, or you are unsteady.You have medical conditions that are getting worse.Watch closely for changes in your health, and be sure to contact your doctor if:You do not get better as expected.You are having a problem with your medicine. You participated in a Fasttrack Rx request, considered an asynchronous visit where you provide your symptoms and medical history, and a treatment plan is formulated based on your submission. A treatment plan and patient education were provided based on your submission. If symptoms persist or worsen, you should seek in-person care or call 911 immediately for further evaluation. BUPROPION HYDROCHLORIDE ER (XL) 150 MG MM54Livrlxeau:Not AvailableQuantity:30 TabletDuration:30 DaysWritten Date:08/16/2024Fill Date:5Clinical InformationPrimary Diagnosis:Not AvailableSecondary Diagnosis:Not AvailableRefills Remaining:Not AvailableAdditional InformationDispensing Pharmacy:[id number], [address] [place] [place], [place], [address]Eddhmtrrze:PASQUALE MARCOS SERTRALINE 50MG TABLETSDirection:Not AvailableQuantity:90 EachDuration:90 DaysWritten Date:08/16/2024Fill Date:5Clinical InformationPrimary Diagnosis:Not AvailableSecondary Diagnosis:Not AvailableRefills RemaininAdditional InformationDispensing Pharmacy:[facility], [address]Rwweviutkk:PASQUALE TSAI 11/22/2024 Other Follow the treatment plan as indicated by the provider. Take any medications as prescribed. If you have any questions about your prescription, ask the pharmacist. This treatment plan is based on the information you have provided to us today. Incomplete disclosure of your medical history, past treatments, or current medications may affect the effectiveness of this treatment. Call 911 anytime you think you may need emergency care. For example, call if:You have severe trouble breathing.You have a seizure.Call your doctor now or seek immediate medical care if:You have trouble breathing.You have a fever with a stiff neck or a severe headache.You have pain or pressure in your chest or belly.You have a fever or cough that returns after getting better.You feel very sleepy, dizzy, or confused.You are not urinating.You have severe muscle pain.You have severe weakness, or you are unsteady.You have medical conditions that are getting worse.Watch closely for changes in your health, and be sure to contact your doctor if:You do not get better as expected.You are having a problem with your medicine. You participated in a Fasttrack Rx request, considered an asynchronous visit where you provide your symptoms and medical history, and a treatment plan is formulated based on your submission. A treatment plan and patient education were provided based on your submission. If symptoms persist or worsen, you should seek in-person care or call 911 immediately for further evaluation. Plan Of Treatment Pending Test Test Name Order Date CBC (INCLUDES DIFF/PLT) (6399) 5 HETEROPHILE, MONO SCREEN (654) 5 STREPTOCOCCUS, GROUP A CULTURE (4485) SARS-CoV-2 RNA, Influenza A/B, and RSV R NA, Qualitative NAAT (11716) 11/22/2024 SARS CoV2 (COVID19) AND INFLUENZA A AND B, NAAT 09/30/2024 Insurance Providers Payer Name Payer Address Payer Phone Subscriber Number Group Number Insured Name Patient Relationship to Insured Coverage Start Date [place] [id number] [employer] [address] [place] [phone] [id number] Amy Soliz Self - patient is the insured
--- OUTSIDE RECORDS SUMMARY | 2024-11-29 01:12 | XMS_ITS | Continuity of Care Document ---
Author Organization [facility] Address [address] [place] [address] Phone Care Team Providers Care Criminal Justice Program Director Name Role Phone Unavailable Unavailable Unavailable Advance Directives Directive Yes / No Effective Date File Name No Information Encounters Encounter Description Practice Location Reason(s) For Visit Diagnoses Date Provider Providers Copied on Encounter [facility], [address] [facility], [place], [place], [id number], [place] tel:[phone] [facility] No Information [phone] No Information Referring Provider: GINA WARREN, [address] [place] [address],[place], [address]. tel:[phone] Family History Family Member Type Diagnosis Age At Onset No Information Payers Payer name Insurance type Covered republican ID Authoriza tion(s) No Information Social History Type Description Quantity Date Captured Comments Sex Female Smoking Status No Information Chief Complaint And Reason For Visit No Information History Of Present Illness Encounter Date Complaint History Of Prese nt Illness No Information Instructions Date Instruction Additional Infor mation No Information Assessments Type Assessment Date No Information
--- OUTSIDE RECORDS SUMMARY | 2024-11-29 01:12 | XMS_ITS ---
Author Organization [facility] Address [address] [place] [address] Care Team Providers Care Fashion Photographer Name Role Phone [facility] Unavailable [phone] REASON FOR VISIT F/U Lab results Encounters Encounter Location Date Provider Diagnosis [facility] [address] [place] [address] 10/07/2024 [facility] Plan Of Treatment No Information Progress Notes * Amy SOLIZDOB: [birth year] (34 yo F)Acc No.[id number]:10/07/2024 Progress Notes Patient: Amy BOSS Provider: Matilde GUERRA [facility] :1990 A ge:34 Y S ex:Female Date:10/07/2024 Phone: Address:[address] , [place], [id number] Subjective: * Chief Complaints: * 1 . F/U Lab results. * Medical History: Objective: * Vitals: Assessment: Plan: * Treatment: * Billing Information: * Visit Code: * Procedure Codes: * Electronic signature of [facility] on 11/29/2024 at 02:12 AM EDT Sign off status: Pending * Provider: Matilde GUERRA [facility] Date: 10/07/2024 Generated for Isma acosta/Amarjit/eTevertonitting on: 11/29/2024 02:12 AM EDT
--- OUTSIDE RECORDS SUMMARY | 2024-11-29 01:12 | XMS_ITS | Clinical Summary ---
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
--- OUTSIDE RECORDS SUMMARY | 2024-11-29 01:12 | XMS_ITS | Clinical Summary ---
Author Organization [facility] Medical Office Building A Address [address] [place] [address] Care Team Providers Care Senior Software Quality Analyst Name Role Phone Santos Ayala MD Unavailable [phone] Chester Sanchez MD Unavailable [phone] William Smith MD Primary Care Provider Allergies Active Allergy Reactions Criticality Noted Date Comments Penicillins Rash Reaction: Rash, Medications buPROPion XL (WELLBUTRIN XL) 150 mg 24 hr tabletIndicatio ns:Moderate episode of recurrent major depressive disorder (HCC) Take 1 tablet (150 mg total) by mouth every morning 90 tablet 1 5 08/17/19 26 Active Additional Information Patient not taking.Reported on 11/26/2024 sertraline (ZOLOFT) 50 mg tabletIndicatio ns:Moderate episode of recurrent major depressive disorder (HCC) Take 1 tablet (50 mg total) by mouth daily 90 tablet 1 5 08/17/19 26 Active Additional Information Patient not taking.Reported on 11/26/2024 Active Problems Problem Noted Date Diagnosed Date [...] 10/21/2023 Assessment & Plan (08/16/2024 3:36 PM CUSTOMER PROGRAM SPECIALIST): - chronic conditon, well controlled but reports [...] 07/22/2023 Assessment & Plan (07/27/2023 9:58 AM CUSTOMER PROGRAM SPECIALIST): -new diagnosis, not at/near goal -recent lab work shows significantly decreased vitamin-D level -patient denies any previous diagnosis of this -vitamin D3 prescription sent in [facility] 07/27/2023 Assessment & Plan (07/27/2023 10:11 AM CUSTOMER PROGRAM SPECIALIST): -new complaint -onset x1 week -patient denies any particular trigger, but does state it seems to get worse throughout the day -meclizine prescribed Class 1 obesity due to exces s calories without serious comorbidity with body mass index (BMI) of 31.0 to 31.9 in adult 01/02/2023 Assessment & Plan (08/16/2024 3:38 PM CUSTOMER PROGRAM SPECIALIST): Wt Readings from Last 3 Encounters: 08/16/24 [...] diet. 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 Follow-up with her government program manager as they direct. There are no contraindications to her working. Will see her back in 1 year for physical and fasting lab sooner if needed. Encounters Date Type Department Care Team Description 11/26/2024 3:00 PM CDT Office Visit [facility] Surgery [address] [place] [address] Esmer Herrera MD Thyroid mass 11/26/2024 1:50 PM CDT - 11/26/2024 11:59 PM CDT Hospital Encounter [facility] [address] [place] [address] Thyroid nodule Discharge Disposition: Discharge to home or self care 11/22/2024 10:01 AM CDT - 11/22/2024 11:59 PM CDT Hospital Encounter [facility] ([facility]) [address] [place] [address] Discharge Disposition: Discharge to home or self care 11/22/2024 Telephone [facility] [address] [place] [address] Josseline Chau RN 11/22/2024 Orders Only [facility] [address] [place] [address] Josseline Chau RN Thyroid nodule (Primary Dx) 11/22/2024 Orders Only [facility] [address] [place] [address] Josseline Chau RN Thyroid mass (Primary Dx) 11/16/2024 Telephone [facility] Primary Care at [address] [address] William Smith MD Appointment 11/04/[address] [address] Referral, Self Appointment Request 11/04/[address] [address] Cady Griggs, RN 11/02/2024 Telephone [facility] [address] [facility] Floor 8 [place] [address] Esmer Herrera Scheduling Appointments 10/27/[address] [address] Cady Griggs, RN Internet Request from Last 3 Months Immunizations Immunization Administration [...] on file Legal Sex Female 4:08 AM CUSTOMER PROGRAM SPECIALIST Gender Identity Not on file Sexual Orientation Not on file Obstetrics History Para Term AB IAB SAB Ectopic Multiple Livin g Live Births 1 Date Outcome GA Total Labor Labor//3rd Weight Sex Type Anes PTL Tona A1 A5 Name Clin Last Filed Vital Signs Vital Sign Reading Time Taken Comments Blood Pressure 127/67 11/26/2024 3:10 PM CDT Pulse 72 11/26/2024 3:10 PM CDT Temperature 36.4 C (97.5 F) 11/26/2024 3:10 PM CDT Respiratory Rate 16 11/26/2024 3:10 PM CDT Oxygen Saturation 100% 11/26/2024 3:10 PM CDT Inhaled Oxygen Concentration - - Weight 80.9 kg (178 lb 6.4 oz) 11/26/2024 3:10 P M CDT Height 164.6 cm (5' 4.8) 11/26/2024 3:10 PM CDT Body Mass Index 29.87 11/26/2024 3:10 PM CDT Plan of Treatment Health Maintenance Due Date [...] Procedure Name Priority Date/Time Associated Diagnosis Comments US THYROID Schedule Routine, Read Routine (OP Routine) 11/26/2024 2:57 PM CDT Thyroid nodule US TRANSFER OF OUTSIDE FILMS Routine 11/22/2024 10:01 AM CDT from Last 3 Months Results * US Thyroid (11/26/2024 2:57 PM CDT) Anatomical Region Laterality Modality Head and Neck N/A Ultrasound 11/26/2024 4:03 PM CDT Impressions 11/26/2024 4:24 PM CDT 1. 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 Despite slight bulge into the margin of the thyroid, nodule moves independently from the overlying sternocleidomastoid musculature without evidence of definite invasion. 2. No suspicious cervical lymphadenopathy identified. Dictated by: Santos Costa M.D. The radiology attending physician has personally reviewed this study, and had reviewed and/or edited this written report and agrees with it. Electronically signed by: Jose D Juarez M.D. Narrative 11/26/2024 4:24 PM CDT EXAMINATION: THYROID SONOGRAM HISTORY: 34-year-old woman with a thyroid nodule. Prior Biopsy: Yes, outside fine-needle aspiration at [facility] of a right thyroid nodule measuring 1.8 cm on 10/06/2024. Patient Risk Factors: None. Prior Ultrasound: Outside ultrasound dated 09/13/2024. FINDINGS: The thyroid is mildly enlarged in size. Size right lobe: 6.6 cm craniocaudal, 2.2 cm transverse, 1.5 cm AP. Size left lobe: 6.1 cm craniocaudal, 2.5 cm transverse, 1.4 cm AP. Size isthmus: 0.4 cm AP. Nodule 1: Location: Right upper . Size: 1.6 cm craniocaudal x 1.2 cm transverse x 1.1 cm AP (previously 1.8 cm craniocaudal x 1.3 cm transverse x 1.1 cm AP) Maximum Size: 1.6 cm Composition: Solid/almost completely solid (2) Echogenicity: Hypoechoic (2) Shape: Not taller than wide (0) Margins: Smooth (0) Echogenic foci: None (0) This nodule bulges into the margin of the thyroid, without evidence of direct invasion into the overlying musculature. This nodule moves independently from the overlying sternocleidomastoid musculature with inspiration. Follow-up details: Prior biopsy: Yes, fine-needle aspiration on 10/06/2024, showing follicular cells, with suspicious Affirma testing. Significant change in size (>/= 20% in two dimensions and minimal increase of 2 mm): No. Change in features: No. Procedure Note Jose D Orellana MD - 11/26/2024 EXAMINATION: THYROID SONOGRAM HISTORY: 34-year-old woman with a thyroid nodule. Prior Biopsy: Yes, outside fine-needle aspiration at [facility] of a right thyroid nodule measuring 1.8 cm on 10/06/2024. Patient Risk Factors: None. Prior Ultrasound: Outside ultrasound dated 09/13/2024. FINDINGS: The thyroid is mildly enlarged in size. Size right lobe: 6.6 cm craniocaudal, 2.2 cm transverse, 1.5 cm AP. Size left lobe: 6.1 cm craniocaudal, 2.5 cm transverse, 1.4 cm AP. Size isthmus: 0.4 cm AP. Nodule 1: Location: Right upper . Size: 1.6 cm craniocaudal x 1.2 cm transverse x 1.1 cm AP (previously 1.8 cm craniocaudal x 1.3 cm transverse x 1.1 cm AP) Maximum Size: 1.6 cm Composition: Solid/almost completely solid (2) Echogenicity: Hypoechoic (2) Shape: Not taller than wide (0) Margins: Smooth (0) Echogenic foci: None (0) This nodule bulges into the margin of the thyroid, without evidence of direct invasion into the overlying musculature. This nodule moves independently from the overlying sternocleidomastoid musculature with inspiration. Follow-up details: Prior biopsy: Yes, fine-needle aspiration on 10/06/2024, showing follicular cells, with suspicious Affirma testing. Significant change in size (>/= 20% in two dimensions and minimal increase of 2 mm): No. Change in features: No. IMPRESSION: 1. 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 Despite slight bulge into the margin of the thyroid, nodule moves independently from the overlying sternocleidomastoid musculature without evidence of definite invasion. 2. No suspicious cervical lymphadenopathy identified. Dictated by: Santos Costa M.D. The radiology attending physician has personally reviewed this study, and had reviewed and/or edited this written report and agrees with it. Electronically signed by: Jose D Juarez M.D. us Esmer QUEZADA US PROCEDURES Final Result * US Outside Reference (11/22/2024 10:01 AM CDT) Impressions [facility] - 11/22/2024 10:01 AM CDT These images are for Reference purposes only and have not been reviewed by [facility]iology. There will be no report generated by a [facility] Radiologist. Narrative [facility] - 11/22/2024 10:01 AM CDT EXAMINATION: Images For Reference Purposes Only us Esmer Herrera MD IM US PROCEDURES Final Result [facility] from Last 3 Months Insurance FORMERLY [facility] IBEW * Guarantor: Amy Soliz Account Type Relation to Patient Date of Phone Billing Address Personal/Family Self 1990 [address] [place] [address] [facility] * Guarantor: Amy Soliz Account Type Relation to Patient Date of Phone Billing Address Personal/Family Self 1990 [address] [place] [address] [employer] IBAZALEA Care Teams Senior Software Quality Analyst Relationship Specialty Start Date End Date William Smith MD [address] [address] PCP - General Family Medicine 10/27/24 Santos Ayala MD [address] [facility] [address] [place] [address] Referring Physician Obstetrics and Gynecology 10/21/23 Chester Sanchez MD [facility] [place] [address] Otolaryngology 10/27/24
--- OUTSIDE RECORDS SUMMARY | 2024-11-29 01:12 | XMS_ITS | Referral Summary ---
Author Organization [facility] Medical Office Building A Address [address] [place] [address] Care Team Providers Care Soil Chemist Name Role Phone Santos Ayala MD Unavailable [phone] Chester Sanchez MD Unavailable [phone] William Smith MD Primary Care Provider Encounters Date Type Department Care Team Description 11/26/2024 1:50 PM CDT - 11/26/2024 11:59 PM CDT Hospital Encounter [facility]) [address] [place] [address] Thyroid nodule Discharge Disposition: Discharge to home or self care 11/26/2024 3:00 PM CDT Office Visit [facility] Surgery [address] [place] [address] [address] [place] [phone] Esmer Herrera MD Thyroid mass 11/22/2024 Telephone [facility] [address] [place] [address] 5 [place] [address] Josseline Chau RN 11/22/2024 Orders Only [facility] [address] [place] [address] 5 [place] [address] Josseline Chau RN Thyroid nodule (Primary Dx) 11/22/2024 10:01 AM CDT - 11/22/2024 11:59 PM CDT Hospital Encounter [facility]) [address] [place] [address] Discharge Disposition: Discharge to home or self care 11/22/2024 Orders Only [facility] [address] [facility] Floor 5 [place] [phone] Josseline Chau RN Thyroid mass (Primary Dx) 11/16/2024 Telephone [facility] Primary Care at [address] [address] William Smith MD Appointment 11/04/[address] [address] Referral, Self Appointment Request 11/04/[address] [address] Cady Griggs RN 11/02/2024 Telephone [facility] Floor 8 [place] [address] Esmer Herrera Scheduling Appointments 10/27/[address] [address] Cady Griggs, RN Internet Request from Last 3 Months Allergies Active Allergy [...] 10/21/2023 Assessment & Plan (08/16/2024 3:36 PM AMBULANCE DRIVER PARAMEDIC): - chronic conditon, well controlled but reports [...] 07/22/2023 Assessment & Plan (07/27/2023 9:58 AM AMBULANCE DRIVER PARAMEDIC): -new diagnosis, not at/near goal -recent lab work shows significantly decreased vitamin-D level -patient denies any previous diagnosis of this -vitamin D3 prescription sent in [facility] 07/27/2023 Assessment & Plan (07/27/2023 10:11 AM AMBULANCE DRIVER PARAMEDIC): -new complaint -onset x1 week -patient denies any particular trigger, but does state it seems to get worse throughout the day -meclizine prescribed Class 1 obesity due to exces s calories without serious comorbidity with body mass index (BMI) of 31.0 to 31.9 in adult 01/02/2023 Assessment & Plan (08/16/2024 3:38 PM AMBULANCE DRIVER PARAMEDIC): Wt Readings from Last 3 Encounters: 08/16/24 [...] diet. 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 Follow-up with her cargo service agent as they direct. There are no contraindications [...] on file Legal Sex Female 4:08 AM AMBULANCE DRIVER PARAMEDIC Gender Identity Not on file Sexual Orientation [...] 11/26/2024 3:10 PM CDT Plan of Treatment Not on file Procedures [...] Prior Biopsy: Yes, outside fine-needle aspiration at [facility] of a right thyroid nodule [...] Prior Biopsy: Yes, outside fine-needle aspiration at [facility] of a right thyroid nodule [...] by: Jose D Juarez M.D. us Esmer Herrera MD IMG US PROCEDURES Final Result * US Outside Reference (11/22/2024 10:01 AM CDT) Impressions [facility] - 11/22/2024 10:01 AM CDT These images are for Reference purposes only and have not been reviewed by [facility] Radiology. There will be no report generated by a [facility] Radiologist. Narrative [facility] - 11/22/2024 10:01 AM CDT EXAMINATION: Images For Reference Purposes Only us Esmer Herrera MD Margo PROCEDURES Final Result [facility] from Last 3 Months Insurance [employer] IBEW * Guarantor: Amy Soliz Account Type Relation to Patient Date of Phone Billing Address Personal/Family Self 1990 [address] [place] [place] [address] [employer] IBEW * Guarantor: Amy Soliz Account Type Relation to Patient Date of Phone Billing Address Personal/Family Self 1990 [address] [place] [address] [employer] Care Teams Soil Chemist Relationship Specialty Start Date End Date William Smith MD [address] [facility] [address] [place] [address] PCP - General Family Medicine 10/27/24 Santos Ayala MD [address] [facility] [address] [facility] [address] [place] [address] Referring Physician Obstetrics and Gynecology 10/21/23 Chester Sanchez MD [facility] [place] [address] Otolaryngology 10/27/24
--- NOTE | 2024-11-29 07:18 | P.PNAN_ITS ---
Anes - Initial Pre Proc Eval Procedure: Operation Date: 11/29/24 10:30 Proposed Procedures p Right Thyroid Lobectomy - Chester Sanchez MD Date/Time: 11/29/24 07:18 Surgeon: Chester Sanchez MD Pre Op Diagnosis: non toxic single thyroid nodule Patient Data Age: 34 Gender: F Height: 1.65 m Weight: 78 kg Allergies Allergy/AdvReac Type Severity Reaction Status Date / Time Penicillins Allergy Unknown Rash Verified 11/29/24 09:11 Home Medications ?Medication ?Instructions ?Recorded ?Confirmed ?Type No Home Medications 09/09/24 11/24/24 History Patient hx anesthesia problems: none Family hx anesthesia problems: none Results Review: All pre-operative results and documents have been reviewed as part of the pre- operative evaluation. [facility] Past Medical History Medical History ASCUS with positive high risk HPV Surgical History Surgical History [place] teeth removed History of tonsillectomy Previous section Family History Family History Grandparent Carcinoma of colon Family history of malignant neoplasm of breast Father Family history of type 2 diabetes mellitus Social History Social History Smoking status: Never smoker Second hand tobacco smoke exposure: No Alcohol intake: current Drinks per week: 4 Alcohol use details: Social Substance use: never Substance use type: does not use Do You Feel Safe in your Home?: Yes Lack of Transportation: No Lack of Food: Never True Current Housing: I Have Housing Concerned About Future Housing: No Difficulty Paying Gas/Electric Bills: No Difficulty Paying for Meds: No Currently Unemployed: No Education: Master's Degree or Higher Difficulty w/ Childcare or Family Care: No Living arrangements: with family Spiritual care concerns: No Anes - Eval Final PreProcedure Day of Procedure 11/29/24 07:18 Patient weight: overweight Heart: regular rate and rhythm Lungs: clear to auscultation Airway: Mallampati scale class II Neurological: alert and oriented Last oral intake: >/= 8 hours ASA classification: II Emergent: no Anesthetic plan: proceed Anesthesia type and monitoring: general GIVS and standard monitoring Results Review: All pre-operative results and documents have been reviewed as part of the pre- operative evaluation. Informed Consent: The patient's anesthetic plan and its attendant risks and benefits were discussed with the patient/family/POA. Questions were solicited and answers provided to the satisfaction of the patient/family/POA.
[2024-11-29] MEDS: LACTATED RINGERS 1,000 ML 30 ML IV CONT ×2 (09:00→12:38)
[2024-11-29] MEDS: ACETAMINOPHEN 500 MG TABLET 1000 MG PO (09:03)
--- NOTE | 2024-11-29 10:41 | P.HP_ITS ---
H&P: HPI History of Present Illness Date/Time: 11/29/24 10:41 Chief Complaint: right thyroid nodule Review of Systems Review of Systems: All systems reviewed & are unremarkable except as noted in HPI and below PMFSH Past Medical History Medical History ASCUS with positive high risk HPV Surgical History Surgical History [place] teeth removed History of tonsillectomy Previous section Family History Family History Grandparent Carcinoma of colon Family history of malignant neoplasm of breast Father Family history of type 2 diabetes mellitus Social History Social History Smoking status: Never smoker Second hand tobacco smoke exposure: No Alcohol intake: current Drinks per week: 4 Alcohol use details: Social Substance use: never Substance use type: does not use Do You Feel Safe in your Home?: Yes Lack of Transportation: No Lack of Food: Never True Current Housing: I Have Housing Concerned About Future Housing: No Difficulty Paying Gas/Electric Bills: No Difficulty Paying for Meds: No Currently Unemployed: No Education: Master's Degree or Higher Difficulty w/ Childcare or Family Care: No Living arrangements: with family Spiritual care concerns: No Meds Home Medications and Allergies Home Medications ?Medication ?Instructions ?Recorded ?Confirmed ?Type No Home Medications 09/09/24 11/24/24 History Allergies Allergy/AdvReac Type Severity Reaction Status Date / Time Penicillins Allergy Unknown Rash Verified 11/29/24 09:11 Vital Signs Vital Signs - 24 hr 11/29/24 09:14 Temperature 37.1 C Pulse Rate 70 Respiratory Rate 18 Blood Pressure 123/76 Pulse Oximetry 100 Oxygen Delivery Room Air Exam Narrative: right 1.8cm 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 rest of exam wnl Assessment and Plan Assessment and plan (1) Enlarged thyroid: Code(s): E04.9 - Nontoxic goiter, unspecified Status: Acute Plan Amy has right thyroid nodule, 1.8cm, TR4. FNA suspicious for malignancy. Here for right thyroid lobectomy. r/b/a reviewed, right neck marked, all questions answered and pt and agree to proceed.
--- NOTE | 2024-11-29 10:43 | WPDHPUPDATE1 ---
History and Physical Update Update Date/Time: 11/29/24 10:43 History and Physical has been reviewed, including an updated exam of the patient. There are NO changes in the patient's condition. Risks, benefits, and alternatives have been discussed and questions answered. Patient agrees to proceed with procedure.
[2024-11-29] MEDS: LIDO 1%/EPINEPHRINE 1:100,000 50 ML VIAL 10 ML INFILTRATE (10:50)
[2024-11-29] MEDS: ceFAZolin 2 GM/D5W 50 ML 2 GM/50 ML BAG IVPB (11:08)
--- NOTE | 2024-11-29 12:19 | S_PTH ---
PATIENT: Amy Soliz LOC: [facility] U#:[id number] AGE/SX: 34/F ROOM: RE11/29/[address]: Chester Sanchez MD : 1990 BED: DIS: 11/29/2024 SPEC #: [id number] RECD: 11/29/24 13:08 STATUS: GALEN REMoses #: [id number] JOHN: 11/29/24 12:[address]: Chester Sanchez DEPT: [facility] Surgical RECD BY: Rosalie Marie ENTERED: 11/29/24 13:08 SP TYPE: Surgical OTHR DR: William SmithMD Tissues: A - Thyroid Resection Procedures: Hematoxylin and Eosin Stain Gross and Microscopic Level 5
--- NOTE | 2024-11-29 12:35 | W.PM.PROC2 ---
Procedure Note - Detailed Date of Procedure 11/29/24 Pre-op Diagnosis non toxic single thyroid nodule Post-op Diagnosis Same Procedure Performed RIGHt thyroid lobectomy, laryngeal nerve monitoring Surgeon Chester Sanchez MD Anesthesia General Indications Right thyroid nodule, 75% preoperative risk of malignancy Findings Right nodule, 2cm in size, no gross invasion of surrounding tissue, RLN fully intact and stimulated at end of case. Surgicel in TE groove. Right superior and inferior parathyroid glands intact and well vascularized. Description of Procedure On the date of the procedure the patient was met in the preoperative area. The risks and benefits of the procedure reviewed with the patient who elected to proceed.? The right neck was marked. The patient was brought back to the operating room by the anesthesia team and underwent general endotracheal anesthesia using the glidescope to visualize the NIM tube being appropriately placed.? Once an adequate plane of anesthesia was obtained a timeout was performed to assure the correct patient identity and procedure to be performed which they were. The patient's neck landmarks were marked and the proposed incision was injected with 1% lidocaine with 1:100,000 epinephrine.? The patient was then prepped and draped in the normal fashion for a thyroidectomy.? Neuro monitoring with a NIM endotracheal tube and nerve monitor were utilized throughout the surgery.? A shoulder roll was placed. A 4 cm incision was made two finger breadths above the sternal notch in a skin crease.?The incision was carried through subcutaneous tissue to the subcutaneous fat.? Electrocautery was used down to the level of the platysma which was incised. The strap muscles were identified and at the midline through the raphae.? The thyroid was identified and the strap muscles were elevated off of the right lobe. The right thyroid lobe was retracted medially and blunt dissection was carried out to free the thyroid from the surrounding strap muscles.? The superior pole of the thyroid was identified and the vessels were dissected and cauterized and ligated using harmonic scalpel.? The inferior pole was then identified and the vessels were similarly ligated with harmonic scalpel.? The thyroid was retracted medially and the superior parathyroid gland was identified and was dissected free from the thyroid gland.? The recurrent laryngeal nerve was then identified and dissected free of surrounding tissue. The nerve was confirmed with the prass probe as intact and the correct anatomic tissue. With the thyroid free from the recurrent nerve, it was then elevated and retracted medially and dissected free from the trachea. Barrios?s ligament was taken down with bipolar and monopolar cautery.?The isthmus was then divided using harmonic scalpel. The specimen was then removed and suture marked superior pole. The wound cavity was examined carefully. No bleeding was noted. Hemostasis obtained and confirmed with bipolar cautery. Surgicel was placed in the tracheal groove. The strap muscles were re-approximated with a 3-0 Vicryl.? The platysma was closed with 3-0 Vicryl.? The deep dermal sutures were placed using 4-0 monocryl.? The skin was closed with a 4-0 Monocryl running subcuticular.? The incision was closed with dermabond. No drain was placed. The care the patient was transferred back to the anesthesia team and the patient was awoke in the operating room and was transferred back to the PACU in stable condition without complication. Chester Sanchez M.D. Estimated Blood Loss 5 Drains No Packing Yes (surgicel) Pathology Yes (right thyroid lobectomy, suture campbell superior pole) Complications No immediate complications Condition Stable Disposition PACU
[2024-11-29] MEDS: fentaNYL CITRATE INJ (*CRX) 100 MCG/2 ML VIAL 25 MCG IV PUSH ×4 (13:00→13:20)
[2024-11-29] MEDS: ONDANSETRON INJ 4 MG/2 ML VIAL IV PUSH (14:14)
[2024-11-29] MEDS: oxyCODONE HCL (*CRX) 5 MG TAB IR PO (14:19)
== END 2024-11-29 15:19 | disposition home or self-care (01) ==
PROVIDERS: PCP Family Medicine; Visit Provider Otolaryngology
PROC: (CPT 60220; principal; 2024-11-29 10:30)
DX: D44.0 Neoplasm of uncertain behavior of thyroid gland (principal)
CPT/HCPCS: 60220; 88307; A9270; J0330; J0690; J1100; J1171; J2003; J2004; J2250; J2405; J2704; J3010; J7120